=== PATIENT | female | born 1940 | race Caucasian/White ===

== ENCOUNTER 2018-09-19 12:09 | Emergency (ER) | payer OTHER ==
--- OUTSIDE RECORDS SUMMARY | 2018-09-19 12:27 | XMS REPORT ---
:1940 [facility] Address [address] [place] [address] Care Team Providers Name Role Phone Unavailable Unavailable Unavailable Problems This patient has no known problems. Allergies, Adverse Reactions, Alerts This patient has no known allergies or adverse reactions. Medications This patient has no known medications.
--- NOTE | 2018-09-19 12:58 | RAD REPORT ---
EXAM DESCRIPTION: RAD - Chest Single View - 09/19/2018 12:53 pm CLINICAL HISTORY: Chest pain;SOB Chest pain. COMPARISON: Chest Single View dated 03/22/2017; CHEST PA AND LAT 2 VIEW dated 10/27/2012; CHEST PA AND LAT 2 VIEW dated 08/26/2010; CHEST SINGLE VIEW dated 04/21/2009 FINDINGS: Portable technique limits examination quality. Mild linear subsegmental atelectasis is present both lung bases. The lungs are otherwise clear. The h eart is mildly enlarged in size. No displaced fractures. IMPRESSION: No acute intrathoracic process suspected.
[2018-09-19 13:15] LABS: Absolute Lymphocytes (CBC) 1.7 K/uL (0.7-4.9); Basophils % 1.2 % (0-1.3); Eosinophils % 2.9 % (0-4.4); Hematocrit 37.2 % (36.0-45.0); Lymphocytes % 19.6 % (15.3-44.8); MPV 9.2 fL (7.6-11.3); Monocytes % 9.4 % (3.3-12.3); RBC Red Blood Cell Count 4.32 M/uL (3.86-4.86)
[2018-09-19 13:18] LABS: Albumin 2.8 g/dL (3.4-5.0); Bilirubin Direct 0.1 mg/dL (0-0.2); Bilirubin Total 0.5 mg/dL (0.2-1.0); Magnesium 2.3 mg/dL (1.8-2.4); Protein, Total 7.9 g/dL (6.4-8.2); Protime INR 1.04; Troponin (Emerg Dept Use Only) 0.04 ng/mL (0.0-0.045)
--- NOTE | 2018-09-19 15:19 | ER ---
Nurse's Notes 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 Transition of care: patient was not received from another setting of care. Onset of symptoms was September 19, 2018. Risk Assessment: Do you want to hurt yourself or someone else? Patient reports no desire to harm self or others. Initial Sepsis Screen: Does the patient meet any 2 criteria? No. Patient's initial sepsis screen is negative. Does the patient have a suspected source of infection? No. Patient's initial sepsis screen is negative. Care prior to arrival: None. 12:13 Method Of Arrival: EMS: [facility] 12:13 Acuity: TJ 3 hj Triage Assessment: 12:16 General: Appears in no apparent distress. uncomfortable, Behavior is calm, cooperative, hj appropriate for age. Pain: Complains of pain in chest Pain does not radiate. Pain currently is 3 out of 10 on a pain scale. Cardiovascular: Reports chest pain. Historical: - Allergies: 12:17 Celebrex; hj - PMHx: 12:17 Hypertension; Thyroid problem; hj - PSHx: 12:17 Carpal Tunnel Repair; hj - Immunization history:: Adult Immunizations up to date. - Ebola Screening: : Patient negative for fever greater than or equal to 101.5 degrees Fahrenheit, and additional compatible Ebola Virus Disease symptoms Patient denies exposure to infectious person Patient denies travel to an Ebola-affected area in the 21 days before illness onset. - Social history:: Smoking status: Patient/guardian denies using tobacco, Patient/guardian denies using alcohol. Screenin:15 Abuse screen: Denies threats or abuse. Denies injuries from another. Nutritional hj screening: No deficits noted. Tuberculosis screening: No symptoms or risk factors identified. Fall Risk None identified. Assessment: 12:17 Pain: Pain began 1 hour ago. hj 12:17 General: Appears in no apparent distress. uncomfortable, obese, Behavior is calm, hj cooperative, appropriate for age. Pain: Complains of pain in chest Pain does not radiate. Pain currently is 3 out of 10 on a pain scale. Neuro: Level of Consciousness is awake, alert, obeys commands, Oriented to person, place, time, situation, Appropriate for age. Cardiovascular: Capillary refill < 3 seconds Patient's skin is warm and dry. Respiratory: Airway is patent Respiratory effort is even, unlabored, Respiratory pattern is regular, symmetrical. GI: No signs and/or symptoms were reported involving the gastrointestinal system. : No signs and/or symptoms were reported regarding the genitourinary system. EENT: No signs and/or symptoms were reported regarding the EENT system. Derm: No signs and/or symptoms reported regarding the dermatologic system. Musculoskeletal: No signs and/or symptoms reported regarding the musculoskeletal system. 12:58 Reassessment: Patient and/or family updated on plan of care and expected duration. Pain hj level reassessed. Patient is alert, oriented x 3, equal unlabored respirations, skin warm/dry/pink. awaiting results and POC:. 13:39 Reassessment: Patient and/or family updated on plan of care and expected duration. Pain hj level reassessed. Patient is alert, oriented x 3, equal unlabored respirations, skin warm/dry/pink. bottle label inspector in room for blood culture;. 14:54 Reassessment: Patient and/or family updated on plan of care and expected duration. Pain hj level reassessed. Patient is alert, oriented x 3, equal unlabored respirations, skin warm/dry/pink. awaiting for POC and 2nd set of trop'. Vital Signs: 12:14 BP 132 / 57; Pulse 73; Resp 22; Temp 98.1(O); Pulse Ox 97% on 2 lpm NC; Weight 116.12 hj kg; Height 5 ft. 6 in. (167.64 cm); Pain 3/10; 12:58 BP 155 / 67; Pulse 76; Resp 18; Pulse Ox 98% on 2 lpm NC; hj 13:38 BP 131 / 59; Pulse 75; Resp 18; Pulse Ox 100% on 2 lpm NC; hj 14:56 BP 131 / 59; Pulse 75; Resp 18; Pulse Ox 100% on 2 lpm NC; hj 12:14 Body Mass Index 41.32 (116.12 kg, 167.64 cm) hj ED Course: 12:12 Patient arrived in ED. hj 12:14 Triage completed. hj 12:15 Arm band placed on right wrist. hj 12:17 Patient has correct armband on for positive identification. Placed in gown. Bed in low hj position. Call light in reach. Side rails up X 1. phototypesetting equipment monitor on. Pulse ox on. NIBP on. 12:17 Oxygen administration via nasal cannula \T\ 2L/min. hj 12:21 Eliseo Pimentel, LOY is Primary Nurse. hj 12:25 Inserted saline lock: 22 gauge in right upper arm, using aseptic technique. Blood dh3 collected. 12:37 Cyril Marques MD is Attending Physician. kdr 12:48 EKG done, by textile science technician. reviewed by Cyril Marques MD. at1 12:50 Initial lab(s) drawn, by me, sent to lab. dh3 12:54 XRAY Chest (1 view) In Process Unspecified. EDMS 14:37 Repeat lab(s) drawn. by me, sent to lab. dh3 15:29 No provider procedures requiring assistance completed. IV discontinued, intact, hj bleeding controlled, No redness/swelling at site. Pressure dressing applied. Administered Medications: No medications were administered Outcome: 15:19 Discharge ordered by . kdr 15:30 Discharged to home ambulatory, with family. hj 15:30 Condition: stable 15:30 Discharge instructions given to patient, Instructed on discharge instructions, follow up and referral plans. Demonstrated understanding of instructions, follow-up care. 15:30 Patient left the ED. hj Signatures: Dispatcher [employer] EDMS Cyril Marques MD MD kdr Tova Robertson, spin table operator EKG Tat1 Eliseo Pimentel, LOY RN Romy Albarran 3 Corrections: (The following items were deleted from the chart) 12:15 12:14 BP 123 / 108; Pulse 73bpm; Resp 22bpm; Pulse Ox 97% 2 lpm Nasal Cannula; Temp hj 98.1F Oral; 116.12 kg; Height 5 ft. 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
--- NOTE | 2018-09-19 15:20 | EDPHYS ---
Physician Documentation [facility] Name: Rehana Yusuf Age: 78 yrs Sex: Female : 1940 Arrival Date: 09/19/2018 Time: 12:12 Bed 15 Private MD: ED Physician Cyril Marques HPI: 09/19 15:20 This 78 yrs old Female presents to ER via EMS with complaints of Chest Pain, kdr Shortness Of Breath. 15:20 This 78 yrs old Female presents to ER via EMS with complaints of Chest Pain. kdr 15:20 The patient or guardian reports chest pain that is located primarily in the substernal kdr area, anterior chest wall. Onset: suddenly, just prior to arrival, this morning. The pain does not radiate. Associated signs and symptoms: Pertinent positives: None. lower extremity swelling, Pertinent negatives: diaphoresis, dizziness, headache, nausea, near syncope, palpitations, shortness of breath, syncope. The chest pain is described as aching, a pressure. Duration: The patient or guardian reports a single episode, that is still ongoing, but improving. Modifying factors: The symptoms are alleviated by nothing. the symptoms are aggravated by nothing. Severity of pain: At its worst the pain was mild moderate a 6 / 10 in the emergency department the pain has improved is a 2 / 10. The patient has not experienced similar symptoms in the past. The patient has not recently seen a physician. Historical: - Allergies: 12:17 Celebrex; hj - PMHx: 12:17 Hypertension; Thyroid problem; hj - PSHx: 12:17 Carpal Tunnel Repair; hj - Immunization history:: Adult Immunizations up to date. - Ebola Screening: : Patient negative for fever greater than or equal to 101.5 degrees Fahrenheit, and additional compatible Ebola Virus Disease symptoms Patient denies exposure to infectious person Patient denies travel to an Ebola-affected area in the 21 days before illness onset. - Social history:: Smoking status: Patient/guardian denies using tobacco, Patient/guardian denies using alcohol. ROS: 15:20 Constitutional: Negative for fever, chills, and weight loss, Eyes: Negative for injury, kdr pain, redness, and discharge, ENT: Negative for injury, pain, and discharge, Neck: Negative for injury, pain, and swelling, Respiratory: Negative for shortness of breath, cough, wheezing, and pleuritic chest pain, Abdomen/GI: Negative for abdominal pain, nausea, vomiting, diarrhea, and constipation, Back: Negative for injury and pain, : Negative for injury, bleeding, discharge, and swelling, MS/Extremity: Negative for injury and deformity, Skin: Negative for injury, rash, and discoloration, Neuro: Negative for headache, weakness, numbness, tingling, and seizure activity. Psych: Negative for depression, anxiety, suicide ideation, homicidal ideation, and hallucinations, Allergy/Immunology: Negative for hives, rash, and allergies, Endocrine: Negative for neck swelling, polydipsia, polyuria, polyphagia, and marked weight changes, Hematologic/Lymphatic: Negative for swollen nodes, abnormal bleeding, and unusual bruising. 15:20 Cardiovascular: Positive for chest pain, Negative for edema, orthopnea, palpitations, paroxysmal nocturnal dyspnea, acute changes. Exam: 13:39 Constitutional: This is a well developed, well nourished patient who is awake, alert, kdr and in no acute distress. Head/Face: Normocephalic, atraumatic. Eyes: Pupils equal round and reactive to light, extra-ocular motions intact. Lids and lashes normal. Conjunctiva and sclera are non-icteric and not injected. Cornea within normal limits. Periorbital areas with no swelling, redness, or edema. Neck: Trachea midline, no thyromegaly or masses palpated, and no cervical lymphadenopathy. Supple, full range of motion without nuchal rigidity, or vertebral point tenderness. No Meningismus. Chest/axilla: Normal chest wall appearance and motion. Nontender with no deformity. No lesions are appreciated. Cardiovascular: Regular rate and rhythm with a normal S1 and S2. No gallops, murmurs, or rubs. Normal PMI, no JVD. No pulse deficits. Respiratory: Lungs have equal breath sounds bilaterally, clear to auscultation and percussion. No rales, rhonchi or wheezes noted. No increased work of breathing, no retractions or nasal flaring. Abdomen/GI: Soft, non-tender, with normal bowel sounds. No distension or tympany. No guarding or rebound. No evidence of tenderness throughout. Back: No spinal tenderness. No costovertebral tenderness. Full range of motion. Skin: Warm, dry with normal turgor. Normal color with no rashes, no lesions, and no evidence of cellulitis. MS/ Extremity: Pulses equal, no cyanosis. Neurovascular intact. Full, normal range of motion. Neuro: Awake and alert, GCS 15, oriented to person, place, time, and situation. Cranial nerves II-XII grossly intact. Motor strength 5/5 in all extremities. Sensory grossly intact. Cerebellar exam normal. Normal gait. Psych: Awake, alert, with orientation to person, place and time. Behavior, mood, and affect are within normal limits. 13:39 Musculoskeletal/extremity: ROM: limited active range of motion, in the right leg and kdr left leg, limited passive range of motion, The patient has significant lymphedema and erythema - which daughter states may be worsening but the patient feels that it is unchanged.. Vital Signs: 12:14 BP 132 / 57; Pulse 73; Resp 22; Temp 98.1(O); Pulse Ox 97% on 2 lpm NC; Weight 116.12 hj kg; Height 5 ft. 6 in. (167.64 cm); Pain 3/10; 12:58 BP 155 / 67; Pulse 76; Resp 18; Pulse Ox 98% on 2 lpm NC; hj 13:38 BP 131 / 59; Pulse 75; Resp 18; Pulse Ox 100% on 2 lpm NC; hj 14:56 BP 131 / 59; Pulse 75; Resp 18; Pulse Ox 100% on 2 lpm NC; hj 12:14 Body Mass Index 41.32 (116.12 kg, 167.64 cm) MDM: 13:39 HEART Score: History: Slightly Suspicious (0), ECG: Normal (0), Age: > or = 65 years kdr (2), Risk Factors: 1 or 2 risk factors (1), [Hypertension] Troponin: < or = 1 x Normal Limit (0), Total Score = 3. Data reviewed: vital signs, nurses notes, lab test result(s), EKG, radiologic studies. 15:19 Patient medically screened. kdr 15:22 Special discussion: Based on the patient's history, exam, and Dx evaluation, there is kdr no indication for emergent intervention or inpatient Tx. It is understood by the patient/guardian that if the Sx's persist or worsen they need to return immediately for re-evaluation. I discussed with the patient/guardian in detail that at this point there is no indication for admission to the hospital. It is understood, however, that if the symptoms persist or worsen the patient needs to return immediately for re-evaluation. 09/19 12:38 Order name: Basic Metabolic Panel; Complete Time: 13:22 kdr 09/19 12:38 Order name: CBC with Diff; Complete Time: 13:39 kdr 09/19 12:38 Order name: LFT's; Complete Time: 13:22 kdr 09/19 12:38 Order name: Magnesium; Complete Time: 13:22 kdr 09/19 12:38 Order name: NT PRO-BNP; Complete Time: 13:22 kdr 09/19 12:38 Order name: PT-INR; Complete Time: 13:39 kdr 09/19 12:38 Order name: Troponin (emerg Dept Use Only); Complete Time: 13:22 kdr 09/19 12:38 Order name: XRAY Chest (1 view); Complete Time: 13:00 kdr 09/19 12:38 Order name: EKG; Complete Time: 12:39 kdr 09/19 12:38 Order name: Cardiac monitoring; Complete Time: 12:44 kdr 09/19 12:38 Order name: EKG - Nurse/Tech; Complete Time: 12:44 kdr 09/19 13:18 Order name: Blood Culture Adult (2) kdr 09/19 13:22 Order name: Troponin (emerg Dept Use Only): Draw two hours after initial draw; Complete kdr Time: 15:11 09/19 14:33 Order name: Troponin I; Complete Time: 15:11 hj 09/19 12:38 Order name: IV Saline Lock; Complete Time: 12:44 kdr 09/19 12:38 Order name: Labs collected and sent; Complete Time: 12:44 kdr 09/19 12:38 Order name: O2 Per Protocol; Complete Time: 12:44 kdr 09/19 12:38 Order name: O2 Sat Monitoring; Complete Time: 12:44 kdr Administered Medications: No medications were administered Disposition: 09/19/18 15:19 Discharged to Home. Impression: Chest pain, unspecified, Other chest pain. - Condition is Stable. - Discharge Instructions: Nonspecific Chest Pain, [id number]. - Medication Reconciliation Form, Thank You Letter form. - Follow up: Private Physician; When: 2 - 3 days; Reason: If symptoms return, Further diagnostic work-up, Recheck today's complaints, Continuance of care, Re-evaluation by your physician. - Problem is new. - Symptoms have improved. Signatures: Dispatcher [employer] EDMS Prosper Vieyra MD MD cha Rittger, Kevin, MD MD kdr Joaquin, Henry, RN RN hj Corrections: (The following items were deleted from the chart) 15:30 15:19 09/19/2018 15:19 Discharged to Home. Impression: Chest pain, unspecified; Other hj chest pain. Condition is Stable. Forms are Medication Reconciliation Form, Thank You Letter, Antibiotic Education, Prescription Opioid Use. Follow up: Private Physician; When: 2 - 3 days; Reason: If symptoms return, Further diagnostic work-up, Recheck today's complaints, Continuance of care, Re-evaluation by your physician. Problem is new. Symptoms have improved. kdr
--- NOTE | 2018-09-19 15:42 | EKG ---
Test Date: 2018-09-19 Test Time: 12:18:04 Inspector Assembly: MELANIA MEASUREMENT RESULTS: Intervals: Rate: 75 NM: 160 QRSD: 88 QT: 434 QTc: 484 [place]: P: 65 NM: 160 QRS: 39 T: 63 INTERPRETIVE STATEMENTS: Normal sinus rhythm Normal ECG Compared to ECG 03/22/2017 11:31:20 No significant changes Electronically Signed On 09-19-18 15:41:22 CDT by Sigifredo Shaikh
== END 2018-09-19 15:30 | disposition home or self-care (01) ==
LOC: ER 12:09
DX: R07.89 Other chest pain (principal); I10 Essential (primary) hypertension; Z88.8 Allergy status to other drugs, medicaments and biological substances
CPT/HCPCS: 36415; 71045; 80048; 80076; 83735; 83880; 84484; 85025; 85610; 87040; 93005; 99285

== ENCOUNTER 2018-12-01 16:54 | Inpatient (IN) | payer OTHER ==
--- NOTE | 2018-12-01 18:40 | RAD REPORT ---
EXAM DESCRIPTION: RAD - Chest Single View - 12/01/2018 6:32 pm CLINICAL HISTORY: SOB Chest pain. COMPARISON: Chest Single View dated 09/19/2018; Chest Single View dated 03/22/2017; CHEST PA AND LAT 2 VIEW dated 10/27/2012; CHEST PA AND LAT 2 VIEW dated 08/26/2010 FINDINGS: Portable technique limits examination quality. Mild interstitial pulmonary edema. The heart is moderately enlarged in size. No displaced fractures. IMPRESSION: Mild CHF.
[2018-12-01 20:28] LABS: Absolute Lymphocytes (CBC) 1.5 K/uL (0.7-4.9); Hematocrit 33.8 % (36.0-45.0); Lymphocytes % 15.2 % (15.3-44.8); MPV 8.3 fL (7.6-11.3); RBC Red Blood Cell Count 3.92 M/uL (3.86-4.86)
[2018-12-01 20:36] LABS: Protime INR 1.11
[2018-12-01] MEDS ORDERED: FUROSEMIDE 20 MG/ 2ML VIAL ONE (20:42)
[2018-12-01 21:02] LABS: Albumin 2.8 g/dL (3.4-5.0); Bilirubin Direct 0.1 mg/dL (0-0.2); Bilirubin Total 0.4 mg/dL (0.2-1.0); CKMB Creatine Kinase MB 1.6 ng/mL (0.3-3.6); Protein, Total 7.9 g/dL (6.4-8.2); Troponin (Emerg Dept Use Only) 0.06 ng/mL (0.0-0.045)
[2018-12-01 21:43] LABS: Urine Bacteria NONE SEEN /HPF (<20); Urine Culture Reflex Order NOT NEEDED; Urine RBC <5 /HPF (NONE SEEN)
--- NOTE | 2018-12-01 22:04 | ER ---
Nurse's Notes [facility] Name: Rehana Yusuf Age: 78 yrs Sex: Female : 1940 Arrival Date: 12/01/2018 Time: 16:55 Bed 13 Private MD: Faheem Faria E Diagnosis: Unspecified systolic (congestive) heart failure;Venous insufficiency (chronic) (peripheral) Presentation: 12/01 17:12 Presenting complaint: Patient states: I have had shortness of breath and leg swelling sg that started several days ago, Linda been out of my home o2 for about a week, taking my medications but the swelling and weeping in my legs is getting much worth and I feel like I cant breath. Transition of care: patient was not received from another setting of care. Onset of symptoms was December 01, 2018. Risk Assessment: Do you want to hurt yourself or someone else? Patient reports no desire to harm self or others. Initial Sepsis Screen: Does the patient meet any 2 criteria? RR > 20 per min. HR > 90 bpm. Yes Does the patient have a suspected source of infection? No. Patient's initial sepsis screen is negative. Care prior to arrival: None. 17:12 Method Of Arrival: Ambulatory sg 17:12 Acuity: TJ 2 sg Triage Assessment: 17:10 Respiratory: the patient has mild shortness of breath. rb1 Historical: - Allergies: 17:01 Celebrex; sg - PMHx: 17:01 Hypertension; Thyroid problem; sg - PSHx: 17:01 Carpal Tunnel Repair; sg - Immunization history:: Adult Immunizations up to date. - Social history:: Smoking status: Patient/guardian denies using tobacco. - Ebola Screening: : Patient negative for fever greater than or equal to 101.5 degrees Fahrenheit, and additional compatible Ebola Virus Disease symptoms Patient denies exposure to infectious person Patient denies travel to an Ebola-affected area in the 21 days before illness onset No symptoms or risks identified at this time. Screenin:10 Abuse screen: Denies threats or abuse. Nutritional screening: No deficits noted. rb1 Tuberculosis screening: No symptoms or risk factors identified. Fall Risk No fall in past 12 months (0 pts). Secondary diagnosis (15 points) impaired mobility, No IV (0 pts). Ambulatory Aid- Crutches/Cane/Walker (15 pts). Gait- Impaired (20 pts.). Mental Status- Oriented to own ability (0 pts). Total Mckeon Fall Scale indicates High Risk Score (45 or more points). Fall prevention measures have been instituted. Side Rails Up X 2 Placed Close to Nursing Station 1:1 Attendant Assigned Frequent Obs/Assessments Occuring Family Present and informed to notify staff if the need to leave the bedside As available patient and family educated on Fall Prevention Program and Strategies. Assessment: 17:10 General: Appears in no apparent distress. comfortable, Behavior is calm, cooperative, rb1 Denies fever. Pain: Denies pain. Complains of pain in bilateral legs Pain currently is 0 out of 10 on a pain scale. at worst was 10 out of 10 on a pain scale. Neuro: Level of Consciousness is awake, alert, obeys commands, Oriented to person, place, time, situation. Cardiovascular: Capillary refill < 3 seconds is brisk in bilateral fingers. Respiratory: Reports shortness of breath Airway is patent Respiratory effort is even, unlabored, Respiratory pattern is regular, symmetrical, Denies cough. GI: No signs and/or symptoms were reported involving the gastrointestinal system. : No signs and/or symptoms were reported regarding the genitourinary system. Derm: Skin is pink, warm \T\ dry. Musculoskeletal: Swelling present in right leg and left leg bilateral legs are red, swollen, and weeping. 18:10 Reassessment: Patient appears in no apparent distress at this time. No changes from rb1 previously documented assessment. 19:10 Reassessment: Patient appears in no apparent distress at this time. Patient and/or jb4 family updated on plan of care and expected duration. Pain level reassessed. Patient is alert, oriented x 3, equal unlabored respirations, skin warm/dry/pink. Cardiovascular: Rhythm is sinus rhythm. 20:36 Reassessment: Patient appears in no apparent distress at this time. Patient and/or jb4 family updated on plan of care and expected duration. Pain level reassessed. Patient is alert, oriented x 3, equal unlabored respirations, skin warm/dry/pink. 20:36 Respiratory: Breath sounds are clear in right upper lobe, left upper lobe, right middle jb4 lobe and left lower lobe Breath sounds are diminished bilaterally. Breath sounds with wheezes in left posterior upper lobe, right posterior upper lobe, left posterior lower lobe, right posterior middle lobe and right posterior lower lobe. 21:30 Reassessment: Patient appears in no apparent distress at this time. Patient and/or jb4 family updated on plan of care and expected duration. Pain level reassessed. Patient is alert, oriented x 3, equal unlabored respirations, skin warm/dry/pink. 21:51 Reassessment: Pt refused marks. jb4 22:30 Reassessment: Patient appears in no apparent distress at this time. Patient and/or jb4 family updated on plan of care and expected duration. Pain level reassessed. Patient is alert, oriented x 3, equal unlabored respirations, skin warm/dry/pink. 12/02 00:09 Reassessment: Patient appears in no apparent distress at this time. Patient and/or jb4 family updated on plan of care and expected duration. Pain level reassessed. Patient is alert, oriented x 3, equal unlabored respirations, skin warm/dry/pink. Pt reports being able to breath better. Report called to LOY Cruz Patient states feeling better. Vital Signs: 12/01 17:16 BP 114 / 76; Pulse 98; Resp 38 S; Temp 97.2; Pulse Ox 78% on R/A; Pain 3/10; sg 17:17 Pulse Ox 99% on 4 lpm NC; sg 18:15 BP 104 / 77; Pulse 84; Resp 24; Pulse Ox 100% on R/A; Pain 0/10; rb1 20:30 BP 146 / 58; Pulse 103; Resp 16; Pulse Ox 100% on 2.5 lpm NC; jb4 21:30 BP 136 / 58; Pulse 9; Resp 18; Pulse Ox 99% on 2.5 lpm NC; jb4 22:50 BP 121 / 78; Pulse 83; Resp 18; Pulse Ox 100% on 2.5 lpm NC; jb4 23:45 BP 134 / 69; Pulse 87; Resp 20; Temp 98.1(O); Pulse Ox 100% on 2 lpm NC; jb4 17:17 pt report she has been out of home o2 for a week sg ED Course: 16:55 Patient arrived in ED. as 16:56 Faheem Faria MD is Private Physician. as 17:01 Arm band placed on. sg 17:08 Margo Yates FNP-C is PHCP. snw 17:08 Stanislaw King MD is Attending Physician. snw 17:10 Patient has correct armband on for positive identification. Bed in low position. Call rb1 light in reach. Side rails up X 1. Pulse ox on. NIBP on. Warm blanket given. 17:15 Briana Lopez, RN is Primary Nurse. rb1 17:19 Triage completed. sg 18:32 First set of blood cultures drawn by me. Missed attempt(s): 20 gauge in right dh3 antecubital area. Bleeding controlled, band aid applied, catheter tip intact. 18:39 Chest Single View XRAY In Process Unspecified. EDMS 18:45 Missed attempt(s): 22 gauge in right upper arm. Bleeding controlled, band aid applied, dh3 catheter tip intact. 19:00 Report given to LOY Longoria. rb1 19:10 EKG done, by ED staff, reviewed by Margo COUGHLIN. dh3 19:55 Initial lab(s) drawn, by me, sent to lab. Second set of blood cultures drawn. Inserted fc 18 gauge 10 cm midline to right upper arm brachial vein on first attempt. Line with good blood return and flushes well. 22:02 Felipe Shaw MD is Hospitalizing Provider. snw 12/02 00:09 No provider procedures requiring assistance completed. Patient admitted, IV remains in jb4 place. Administered Medications: 12/01 20:47 Drug: Lasix 20 mg Route: IVP; Site: right upper arm; jb4 12/02 00:11 Follow up: Response: No adverse reaction jb4 Point of Care Testing: Blood Glucose: 12/01 18:51 Blood Glucose: 88 mg/dL; rb1 Ranges: Outcome: 22:04 Decision to Hospitalize by Provider. snw 12/02 00:09 Admitted to Med/surg accompanied by nurse, via wheelchair, with oxygen, with chart, jb4 Report called to LOY Cruz Condition: stable Discharge instructions given to patient, family, Instructed on the need for admit, Demonstrated understanding of instructions. 00:56 Patient left the ED. jb4 Signatures: Dispatcher [employer] EDMS Jm Montanez RN RN sg Therrien, Shelly, FNP-C FNP-Holly Wright RN RN fc Martinez, Amelia as Briana Lopez RN RN rb1 Pj Dillard RN RN jb4 Romy Albarran [facility] Corrections: (The following items were deleted from the chart) 12/01 23:11 20:36 Reassessment: Patient appears in no apparent distress at this time. Patient jb4 and/or family updated on plan of care and expected duration. Pain level reassessed. Patient is alert, oriented x 3, equal unlabored respirations, skin warm/dry/pink. jb 23:16 20:30 BP 146 / 58; Pulse 103bpm; Resp 16bpm; Pulse Ox 100% RA; jb4 [facility] 23:58 20:30 BP 146 / 58; Pulse 103bpm; Resp 16bpm; Pulse Ox 100% 4 lpm Nasal Cannula; jb4 [facility] :58 21:30 BP 136 / 58; Pulse 9bpm; Resp 18bpm; Pulse Ox 99% 4 lpm Nasal Cannula; jb4 [facility] :58 22:50 BP 121 / 78; Pulse 83bpm; Resp 18bpm; Pulse Ox 100% 4 lpm Nasal Cannula; jb4 [facility] 12/02 00:09 12/01 23:45 BP 134 / 69; Pulse 87bpm; Resp 20bpm; Pulse Ox 100% 2 lpm Nasal Cannula; [id number]
--- NOTE | 2018-12-01 22:05 | EDPHYS ---
Physician Documentation [facility] Name: Rehana Yusuf Age: 78 yrs Sex: Female : 1940 Arrival Date: 12/01/2018 Time: 16:55 Bed 13 Private MD: Faheem Faria E ED Physician Stanislaw King HPI: 12/01 20:21 This 78 yrs old Female presents to ER via Ambulatory with complaints of Leg snw Swelling, Shortness Of Breath. 20:21 The patient has shortness of breath at rest. Onset: The symptoms/episode began/occurred snw gradually, April 21. Duration: The symptoms are continuous. Associated signs and symptoms: The patient has no apparent associated signs or symptoms. Severity of symptoms: At their worst the symptoms were moderate severe in the emergency department the symptoms are unchanged. as noted. sees Dr. Faria. Historical: - Allergies: 17:01 Celebrex; sg - PMHx: 17:01 Hypertension; Thyroid problem; sg - PSHx: 17:01 Carpal Tunnel Repair; sg - Immunization history:: Adult Immunizations up to date. - Social history:: Smoking status: Patient/guardian denies using tobacco. - Ebola Screening: : Patient negative for fever greater than or equal to 101.5 degrees Fahrenheit, and additional compatible Ebola Virus Disease symptoms Patient denies exposure to infectious person Patient denies travel to an Ebola-affected area in the 21 days before illness onset No symptoms or risks identified at this time. ROS: 19:03 Constitutional: Negative for fever, chills, and weight loss, Eyes: Negative for injury, snw pain, redness, and discharge, ENT: Negative for injury, pain, and discharge, Neck: Negative for injury, pain, and swelling, Cardiovascular: Negative for chest pain, palpitations, and edema, Respiratory: Negative for shortness of breath, cough, wheezing, and pleuritic chest pain, Abdomen/GI: Negative for abdominal pain, nausea, vomiting, diarrhea, and constipation, Back: Negative for injury and pain, : Negative for injury, bleeding, discharge, and swelling, Skin: Negative for injury, rash, and discoloration, Neuro: Negative for headache, weakness, numbness, tingling, and seizure. 19:03 MS/extremity: Positive for pain, swelling, warmth, of the bilaterally lower extremities. Exam: 19:00 Head/Face: Normocephalic, atraumatic. Eyes: Pupils equal round and reactive to light, snw extra-ocular motions intact. Lids and lashes normal. Conjunctiva and sclera are non-icteric and not injected. Cornea within normal limits. Periorbital areas with no swelling, redness, or edema. ENT: Nares patent. No nasal discharge, no septal abnormalities noted. Tympanic membranes are normal and external auditory canals are clear. Oropharynx with no redness, swelling, or masses, exudates, or evidence of obstruction, uvula midline. Mucous membranes moist. Neck: Trachea midline, no thyromegaly or masses palpated, and no cervical lymphadenopathy. Supple, full range of motion without nuchal rigidity, or vertebral point tenderness. No Meningismus. Chest/axilla: Normal chest wall appearance and motion. Nontender with no deformity. No lesions are appreciated. Cardiovascular: Regular rate and rhythm with a normal S1 and S2. No gallops, murmurs, or rubs. Normal PMI, no JVD. No pulse deficits. 19:00 Abdomen/GI: Soft, non-tender, with normal bowel sounds. No distension or tympany. No guarding or rebound. No evidence of tenderness throughout. Back: No spinal tenderness. No costovertebral tenderness. Full range of motion. Neuro: Awake and alert, GCS 15, oriented to person, place, time, and situation. Cranial nerves II-XII grossly intact. Motor strength 5/5 in all extremities. Sensory grossly intact. Cerebellar exam normal. Normal gait. Psych: Awake, alert, with orientation to person, place and time. Behavior, mood, and affect are within normal limits. 19:00 Constitutional: The patient appears alert, awake, obese, uncomfortable. 19:00 Respiratory: the patient does not display signs of respiratory distress, Respirations: prolonged exhalation, shallow respirations, tachypnea, Breath sounds: are clear throughout. 19:00 Skin: Appearance: normal except for affected area, Moisture: dry, lower extremities bilaterally with scaled, edematous, weeping, lesions. Vital Signs: 17:16 BP 114 / 76; Pulse 98; Resp 38 S; Temp 97.2; Pulse Ox 78% on R/A; Pain 3/10; sg 17:17 Pulse Ox 99% on 4 lpm NC; sg 18:15 BP 104 / 77; Pulse 84; Resp 24; Pulse Ox 100% on R/A; Pain 0/10; rb1 20:30 BP 146 / 58; Pulse 103; Resp 16; Pulse Ox 100% on 2.5 lpm NC; jb4 21:30 BP 136 / 58; Pulse 9; Resp 18; Pulse Ox 99% on 2.5 lpm NC; jb4 22:50 BP 121 / 78; Pulse 83; Resp 18; Pulse Ox 100% on 2.5 lpm NC; jb4 23:45 BP 134 / 69; Pulse 87; Resp 20; Temp 98.1(O); Pulse Ox 100% on 2 lpm NC; jb4 17:17 pt report she has been out of home o2 for a week sg MDM: 18:05 Patient medically screened. snw 22:04 Data reviewed: vital signs, nurses notes. Data interpreted: Pulse oximetry: on room air snw is 78 %. Interpretation: hypoxia. Plan: O2 by NC applied. 22:06 Physician consultation: Felipe Shaw MD was called at 22:06, regarding admission, to critical access hospital the telemetry unit. 12/01 18:05 Order name: Sed Rate; Complete Time: 21:08 [facility] hospital 12/01 18:05 Order name: Basic Metabolic Panel; Complete Time: 21:04 w 12/01 18:05 Order name: Blood Culture Adult (2) [facility] 12/01 18:05 Order name: CBC with Diff; Complete Time: 21:08 [facility] 12/01 18:05 Order name: Ckmb; Complete Time: 21:04 [facility] 12/01 18:05 Order name: CPK; Complete Time: 21:04 w 12/01 18:05 Order name: Lactate; Complete Time: 21:05 w 12/01 18:05 Order name: LFT's; Complete Time: 21:04 [facility] 12/01 18:05 Order name: Lipase; Complete Time: 21:05 w 12/01 18:05 Order name: Procalcitonin; Complete Time: 21:16 w 12/01 18:05 Order name: Protime (+inr); Complete Time: 20:57 [facility] hospital 12/01 18:05 Order name: Ptt, Activated; Complete Time: 20:57 [facility] 12/01 18:05 Order name: Troponin (emerg Dept Use Only); Complete Time: 21:04 snw 12/01 18:05 Order name: Urine Microscopic Only; Complete Time: 21:48 snw 12/01 18:05 Order name: Chest Single View XRAY; Complete Time: 19:14 snw 12/01 21:45 Order name: Urine Dipstick--Ancillary (enter results); Complete Time: 22:19 ar5 12/01 21:52 Order name: BNP; Complete Time: 22:19 jb4 12/01 23:17 Order name: CONS Physician Consult [facility] 12/01 23:17 Order name: Urinalysis [facility] 12/01 23:17 Order name: CBC with Automated Diff [facility] 12/01 23:17 Order name: CBC with Automated Diff [facility] 12/01 23:17 Order name: Comprehensive Metabolic Panel [facility] 12/01 23:17 Order name: Comprehensive Metabolic Panel [facility] 12/01 23:17 Order name: Magnesium [facility] 12/01 23:17 Order name: Magnesium [facility] 12/01 23:17 Order name: Phosphorus [facility] 12/01 23:18 Order name: Phosphorus [facility] 12/01 23:18 Order name: NT PRO-BNP [facility] 12/01 23:18 Order name: NT PRO-BNP [facility] 12/01 18:05 Order name: Accucheck; Complete Time: 18:52 w 12/01 18:05 Order name: Cardiac monitoring; Complete Time: 20:32 [facility] 12/01 18:05 Order name: EKG - Nurse/Tech; Complete Time: 19:11 [facility] 12/01 18:05 Order name: IV Saline Lock - Large Bore; Complete Time: 20:32 w 12/01 18:05 Order name: Labs collected and sent; Complete Time: 20:32 w 12/01 18:05 Order name: O2 Per Protocol; Complete Time: 18:52 w 12/01 18:05 Order name: O2 Sat Monitoring; Complete Time: 18:52 w 12/01 18:05 Order name: Urine Dipstick-Ancillary (obtain specimen); Complete Time: 21:52 w 12/01 21:08 Order name: [place]; Complete Time: 21:51 w 12/01 23:17 Order name: Heart Healthy EDMS Administered Medications: 20:47 Drug: Lasix 20 mg Route: IVP; Site: right upper arm; jb4 12/02 00:11 Follow up: Response: No adverse reaction jb4 Point of Care Testing: Blood Glucose: 12/01 18:51 Blood Glucose: 88 mg/dL; rb1 Ranges: Critical Glucose Levels:Adult <50 mg/dl or >400 mg/dl <40 mg/dl or >180 mg/dl Disposition: 22:02 Critical Care: not applicable. snw Disposition: 12/01/18 22:04 Hospitalization ordered by Felipe Shaw for Observation. Preliminary diagnosis are Unspecified systolic (congestive) heart failure, Venous insufficiency (chronic) (peripheral). - Bed requested for Telemetry/MedSurg (observation). - Status is Observation. jb4 - Condition is Stable. - Problem is new. - Symptoms are unchanged. UTI on Admission? No Addendum: 12/06/2018 14:46 Co-signature as Attending Physician, Stanislaw King MD. g s Signatures: Dispatcher [employer] EDVA Dionna Short RN RN mw Gay, Steven, RN RN sg Margo Yates, [employer]PERATIONS SUPERVISOR-C [employer] SUPERVISOR-Csnw Pj Dillard RN RN [facility] Stanislaw King MD MD Corrections: (The following items were deleted from the chart) 12/01 23:41 22:04 Hospitalization Ordered by Felipe Shaw MD for Observation. Preliminary diagnosis is Unspecified systolic (congestive) heart failure; Venous insufficiency (chronic) (peripheral). Bed requested for Telemetry/MedSurg (observation). Status is Observation. Condition is Stable. Problem is new. Symptoms are unchanged. UTI on Admission? No. snw 12/02 00:56 12/01 23:41 12/01/2018 22:04 Hospitalization Ordered by Felipe Shaw MD for jb4 Observation. Preliminary diagnosis is Unspecified systolic (congestive) heart failure; Venous insufficiency (chronic) (peripheral). Bed requested for Telemetry/MedSurg (observation). Status is Observation. Condition is Stable. Problem is new. Symptoms are unchanged. UTI on Admission? No. mw
[2018-12-01 22:09] LABS: Urine Blood NEGATIVE (NEG); Urine Glucose NEGATIVE (NEG); Urine Protein NEGATIVE (NEG)
[2018-12-01] MEDS ORDERED: ONDANSETRON 4 MG/2 ML VIAL IV PRN (23:11)
[2018-12-01] MEDS ORDERED: ALPRAZOLAM 0.25 MG TABLET PO PRN (23:11)
[2018-12-01] MEDS: NA CHLORIDE 0.9% 1,000 ML IV SCH (23:45)
[2018-12-02] MEDS: NA CHLORIDE 0.9% 1,000 ML IV SCH (00:49)
[2018-12-02] MEDS: METHYLPREDNISOLONE 125 MG INJ IV SCH ×2 (00:50→06:47)
[2018-12-02 01:10] VITALS: BMI 42.7
[2018-12-02] MEDS: IPRATROPIUM BROM 0.5MG/2.5ML NEB SCH ×4 (02:00→20:00)
[2018-12-02] MEDS: ALBUTEROL 2.5 MG/3 ML NEB SOL NEB SCH ×4 (02:00→20:00)
[2018-12-02] MEDS ORDERED: INFLUENZA VACCINE (for 3y+) 0.5 ML DOSE IMVAC ONE (06:00)
[2018-12-02 06:04] LABS: Absolute Lymphocytes (CBC) 0.5 K/uL (0.7-4.9); Basophils % 0.5 % (0-1.3); Hematocrit 33.5 % (36.0-45.0); Lymphocytes % 5.1 % (15.3-44.8); MPV 8.5 fL (7.6-11.3); RBC Red Blood Cell Count 3.93 M/uL (3.86-4.86)
[2018-12-02 06:14] LABS: Albumin 2.8 g/dL (3.4-5.0); Bilirubin Total 0.5 mg/dL (0.2-1.0); Magnesium 1.9 mg/dL (1.8-2.4); Phosphorus 3.3 mg/dL (2.5-4.9)
[2018-12-02] MEDS ORDERED: FUROSEMIDE 20 MG/ 2ML VIAL IV ONE (07:39)
[2018-12-02] MEDS ORDERED: ALBUMIN HUMAN 25% 50 ML IV ONE ×2 (07:39→12:00)
[2018-12-02] MEDS ORDERED: PNEUMOCOCCAL VACCINE 0.5 ML IMVAC ONE (08:00)
--- NOTE | 2018-12-02 08:38 | EKG ---
Test Date: 2018-12-01 Test Time: 19:10:18 [employer]ing [employer] Member: ALEXY MEASUREMENT RESULTS: Intervals: Rate: 85 NM: 160 QRSD: 84 QT: 404 QTc: 480 [place]: P: 58 NM: 160 QRS: 34 T: 37 INTERPRETIVE STATEMENTS: Normal sinus rhythm Possible Anterior infarct, age undetermined Abnormal ECG Compared to ECG 09/19/2018 12:18:04 Myocardial infarct finding now present Electronically Signed On 12-02-18 08:37:52 CDT by Sigifredo Shaikh
[2018-12-02] MEDS: ENOXAPARIN 40 MG/0.4 ML SQ SCH (09:08)
[2018-12-02] MEDS: PIPER/TAZO/NS 3.375gm 3.375 GM/100 ML BAG IVPB SCH ×2 (09:09→18:10)
[2018-12-02] MEDS: PREGABALIN 75 MG CAP PO SCH ×2 (09:09→21:21)
[2018-12-02 10:52] LABS: Stomatocytes 2+
[2018-12-02 10:53] LABS: Blood Morphology Comment NOTED (NOT SEEN); Platelet Estimate ADEQ; Urine White Blood Cell Casts OK
[2018-12-02] MEDS ORDERED: ALBUMIN HUMAN 25% 100 ML IV ONE (11:46)
--- NOTE | 2018-12-02 12:28 | P.PN ---
Subjective Date of Service: 12/02/18 Subjective: No C/O voiced, Ambulating, Improving, Working w/ PT, Doing well Review of Systems 10-point ROS is otherwise unremarkable Physical Examination - Vital Signs Temperature: 98.0 F Blood Pressure: 164/77 Pulse: 96 Respirations: 20 Pulse Ox (%): 95 - Physical Exam General: Alert, In no apparent distress HEENT: Atraumatic, PERRLA, EOMI Neck: Supple, JVD not distended Respiratory: Normal air movement, Expiratory wheezes, Inspiratory wheezes Cardiovascular: Regular rate/rhythm, Normal S1 S2 Gastrointestinal: Normal bowel sounds, No tenderness Musculoskeletal: No tenderness Integumentary: No rashes Neurological: Normal speech, Normal tone, Normal affect Lymphatics: No axilla or inguinal lymphadenopathy - Studies Laboratory Data (last 24 hrs) 12/01/18 19:55: PT 13.1 H, INR 1.11, APTT 30.3 12/01/18 19:55: Sodium 138, Potassium 4.0, BUN 12, Creatinine 1.00, Glucose 94, Total Bilirubin 0.4, AST 13 L, ALT 14, Alkaline Phosphatase 74, Lipase 123 12/01/18 19:55: WBC 9.6, Hgb 10.5 L, Hct 33.8 L, Plt Count 396 Medications List Reviewed: Yes Assessment And Plan - Current Problems (Diagnosis) (1) COPD exacerbation Onset Date: 03/23/17 Current Visit: No Status: Acute Plan: COPD exacerbation -Duonebs, Steroids and Oxygen for now -Pulmonology consulted. Appreciated Reccs -Will monitor for next 24hrs (2) HTN (hypertension) Onset Date: 03/23/17 Current Visit: No Status: Chronic Qualifiers: Hypertension type: essential hypertension Qualified Code(s): I10 - Essential (primary) hypertension (3) Hypothyroid Onset Date: 03/23/17 Current Visit: No Status: Chronic Qualifiers: Hypothyroidism type: acquired Qualified Code(s): E03.9 - Hypothyroidism, unspecified - Plan Pending clinical improvement at this time Discharge Plan: Home Plan to discharge in: 48 Hours - Code Status/Comfort Care Code Status Assessed: Yes Critical Care: No
--- NOTE | 2018-12-02 21:08 | P.HP ---
Certification for Inpatient Patient admitted to: Inpatient With expected LOS: >2 Midnights Patient will require the following post-hospital care: None Practitioner: I am a practitioner with admitting privileges, knowledge of patient current condition, hospital course, and medical plan of care. Services: Services provided to patient in accordance with Admission requirements found in Title 42 Section 412.3 of the Code of Federal Regulations Patient History Date of Service: 12/01/18 Reason for admission: Shortness of breath and bilateral lower extremity edema/ erythema History of Present Illness: Patient is 78-year-old female came to the hospital with difficulty breathing. Patient has significant shortness of breath. Patient has a history of COPD exacerbation. Patient recently ran out of her home oxygen. She states the weeping in her leg got much worse so she decided to finally come into the hospital for further evaluation. Patient respiratory status has improved. Patient was given nebs and steroids. Clinically, she does feel somewhat better but her legs are still bothering her. She is having neuropathic pain. She also has significant erythema. These are being treated for the last 4 months. She has not seen much improvement even though she has seen a rolling machine operator automatic. She states that her rolling machine operator automatic and PCP are in disagreement for the etiology of her lower extremity edema. Allergies celecoxib [From Celebrex] Allergy (Severe, Verified 12/02/18 01:07) Anaphylaxis Home Medications: Amitriptyline [Elavil*] 25 mg PO BEDTIME 12/02/18 Fluticasone/Vilanterol [Breo Ellipta 200-25 Mcg INH] 1 puff IN DAILY 12/02/18 Furosemide [Lasix*] 40 mg PO DAILY 12/02/18 Gabapentin 600 mg PO DAILY 12/02/18 Levothyroxine Sodium 50 mcg PO DAILY 12/02/18 Metoprolol Succinate 25 mg PO BID 12/02/18 Simvastatin 40 mg PO BEDTIME 12/02/18 - Past Medical/Surgical History Has patient received pneumonia vaccine in the past: No Diabetic: No -: COPD -: HTN -: Asthma -: Hypothyroidism -: HTN -: Carpal Tunnel Repair - Family History Father Family History: Reviewed- Non-Contributory - Social History Smoking Status: Never smoker Alcohol use: Yes CD- Drugs: No Caffeine use: Yes Place of Residence: Home Review of Systems 10-point ROS is otherwise unremarkable Physical Examination - Vital Signs Temperature: 98.7 F Blood Pressure: 149/76 Pulse: 103 Respirations: 19 Pulse Ox (%): 93 - Physical Exam General: Alert, In no apparent distress, Oriented x3 HEENT: Atraumatic, PERRLA, Mucous membr. moist/pink, EOMI, Sclerae nonicteric Neck: Supple, 2+ carotid pulse no bruit, No LAD, Without JVD or thyroid abnormality Respiratory: Diminished, Expiratory wheezes Cardiovascular: Regular rate/rhythm, Normal S1 S2, No murmurs Gastrointestinal: Normal bowel sounds, Soft and benign, Non-distended, No tenderness Musculoskeletal: Swelling, Erythema, Tenderness Integumentary: Tenderness/swelling, Erythema, Warmth Neurological: Normal speech, Normal tone, Sensation intact, Cranial nerves 3-12 intact, Normal affect, Abnormal gait, Abnormal strength Lymphatics: No axilla or inguinal lymphadenopathy - Studies Laboratory Data (last 24 hrs) 12/01/18 19:55: Sodium 138, Potassium 4.0, BUN 12, Creatinine 1.00, Glucose 94, Total Bilirubin 0.4, AST 13 L, ALT 14, Alkaline Phosphatase 74, Lipase 123 Assessment & Plan - Problems (Diagnosis) (1) Hypoxemia Current Visit: Yes Status: Acute (2) COPD exacerbation Onset Date: 03/23/17 Current Visit: No Status: Acute (3) Bilateral lower extremity edema Current Visit: Yes Status: Acute (4) Bilateral lower leg cellulitis Current Visit: Yes Status: Acute (5) HTN (hypertension) Onset Date: 03/23/17 Current Visit: No Status: Chronic Qualifiers: Hypertension type: essential hypertension Qualified Code(s): I10 - Essential (primary) hypertension (6) Hypothyroid Onset Date: 03/23/17 Current Visit: No Status: Chronic Qualifiers: Hypothyroidism type: acquired Qualified Code(s): E03.9 - Hypothyroidism, unspecified - Plan Plan: 1. Continue with albuterol and Atrovent nebs 2. Continue with IV steroids 3. Pulmonary consultation 5. Room air O2 sats 6. Repeat chest x-ray in the morning 7. Wound healing care consultation 8. IV antibiotics 9. GI and DVT prophylaxis - Advance Directives Does patient have a Living Will: No Does patient have a Durable POA for Healthcare: No
[2018-12-02] MEDS: predniSONE 10 MG TAB PO SCH (21:22)
[2018-12-03] MEDS: IPRATROPIUM BROM 0.5MG/2.5ML NEB SCH ×4 (00:50→19:15)
[2018-12-03] MEDS: ALBUTEROL 2.5 MG/3 ML NEB SOL NEB SCH ×4 (00:50→19:15)
[2018-12-03] MEDS: PIPER/TAZO/NS 3.375gm 3.375 GM/100 ML BAG IVPB SCH ×3 (01:20→17:19)
[2018-12-03] MEDS: PREGABALIN 75 MG CAP PO SCH (09:00)
[2018-12-03] MEDS: predniSONE 10 MG TAB PO SCH ×2 (09:06→20:59)
[2018-12-03] MEDS: ENOXAPARIN 40 MG/0.4 ML SQ SCH (09:06)
[2018-12-03] MEDS: PNEUMOCOCCAL VACCINE 0.5 ML IMVAC ONE ×2 (10:00→17:20)
[2018-12-03] MEDS: INFLUENZA VACCINE (for 3y+) 0.5 ML DOSE IMVAC ONE ×2 (10:00→17:22)
--- NOTE | 2018-12-03 13:05 | P.PN ---
Subjective Date of Service: 12/03/18 Chief Complaint: Shortness of breath and bilateral lower extremity edema/ erythema Review of Systems 10-point ROS is otherwise unremarkable Physical Examination - Vital Signs Temperature: 97.4 F Blood Pressure: 143/72 Pulse: 81 Respirations: 19 Pulse Ox (%): 94 - Physical Exam General: Alert, In no apparent distress HEENT: Atraumatic, PERRLA, EOMI Neck: Supple, JVD not distended Respiratory: Clear to auscultation bilaterally, Normal air movement Cardiovascular: Regular rate/rhythm, Normal S1 S2 Gastrointestinal: Normal bowel sounds, No tenderness Musculoskeletal: Erythema, Tenderness, Warmth Integumentary: No rashes Neurological: Normal speech, Normal tone, Normal affect Lymphatics: No axilla or inguinal lymphadenopathy - Studies Medications List Reviewed: Yes Assessment And Plan - Current Problems (Diagnosis) (1) Bilateral lower leg cellulitis Current Visit: Yes Status: Acute Plan: BL LE Cellulites with Chronic Lymphedema -IV Zosyn at this time -Blood and wound culture pending at this time -will clean the wound with Betadine and Wrap the leg and elevate it -Will f.u with Results (2) COPD exacerbation Onset Date: 03/23/17 Current Visit: No Status: Acute Plan: COPD exacerbation Now resolved. -Duonebs, Steroids and Oxygen for now -Pulmonology consulted. Appreciated Reccs (3) HTN (hypertension) Onset Date: 03/23/17 Current Visit: No Status: Chronic Qualifiers: Hypertension type: essential hypertension Qualified Code(s): I10 - Essential (primary) hypertension (4) Hypothyroid Onset Date: 03/23/17 Current Visit: No Status: Chronic Qualifiers: Hypothyroidism type: acquired Qualified Code(s): E03.9 - Hypothyroidism, unspecified - Plan Pending clinical improvement at this time Discharge Plan: Home Plan to discharge in: 48 Hours - Code Status/Comfort Care Code Status Assessed: Yes Critical Care: No
[2018-12-03 21:24] LABS: Urine Appearance CLEAR; Urine Bilirubin NEGATIVE (NEG); Urine Blood NEGATIVE (NEG); Urine Color YELLOW; Urine Glucose NEGATIVE (NEG); Urine Protein NEGATIVE (NEG); Urine Specific Gravity 1.025 (1.005-1.030); Urine Urobilinogen 0.2 mg/dL (0.2-1.0)
[2018-12-03 21:28] LABS: Urine Microscopic Reflex ORDER UMIC
[2018-12-03 21:31] LABS: Urine Bacteria <20 /HPF (<20); Urine Culture Reflex Order REFLEXED; Urine RBC NONE SEEN /HPF (NONE SEEN)
[2018-12-04] MEDS: PIPER/TAZO/NS 3.375gm 3.375 GM/100 ML BAG IVPB SCH ×3 (00:26→17:25)
[2018-12-04] MEDS: ALBUTEROL 2.5 MG/3 ML NEB SOL NEB SCH ×4 (01:15→19:40)
[2018-12-04] MEDS: IPRATROPIUM BROM 0.5MG/2.5ML NEB SCH ×4 (01:15→19:40)
[2018-12-04] MEDS: ENOXAPARIN 40 MG/0.4 ML SQ SCH (08:18)
[2018-12-04] MEDS: predniSONE 10 MG TAB PO SCH ×2 (08:18→20:46)
--- NOTE | 2018-12-04 13:12 | P.PN ---
Subjective Date of Service: 12/04/18 Chief Complaint: Shortness of breath and bilateral lower extremity edema/ erythema Subjective: No C/O voiced, Ambulating, Improving, Working w/ PT, Doing well Review of Systems 10-point ROS is otherwise unremarkable Physical Examination - Vital Signs Temperature: 98.4 F Blood Pressure: 137/84 Pulse: 79 Respirations: 18 Pulse Ox (%): 91 - Physical Exam General: Alert, In no apparent distress HEENT: Atraumatic, PERRLA, EOMI Neck: Supple, JVD not distended Respiratory: Clear to auscultation bilaterally, Normal air movement Cardiovascular: Regular rate/rhythm, Normal S1 S2 Gastrointestinal: Normal bowel sounds, No tenderness Musculoskeletal: No tenderness Integumentary: No rashes Neurological: Normal speech, Normal tone, Normal affect Lymphatics: No axilla or inguinal lymphadenopathy - Studies Medications List Reviewed: Yes Assessment And Plan - Current Problems (Diagnosis) (1) Bilateral lower leg cellulitis Current Visit: Yes Status: Acute Plan: BL LE Cellulites with Chronic Lymphedema -IV Zosyn at this time -Blood and wound culture pending at this time -will clean the wound with Betadine and Wrap the leg and elevate it -Will f.u with Results (2) COPD exacerbation Onset Date: 03/23/17 Current Visit: No Status: Acute Plan: COPD exacerbation Now resolved. -Duonebs, Steroids and Oxygen for now -Pulmonology consulted. Appreciated Reccs (3) HTN (hypertension) Onset Date: 03/23/17 Current Visit: No Status: Chronic Qualifiers: Hypertension type: essential hypertension Qualified Code(s): I10 - Essential (primary) hypertension (4) Hypothyroid Onset Date: 03/23/17 Current Visit: No Status: Chronic Qualifiers: Hypothyroidism type: acquired Qualified Code(s): E03.9 - Hypothyroidism, unspecified - Plan Pending clinical improvement at this time Discharge Plan: Home Plan to discharge in: 48 Hours - Code Status/Comfort Care Code Status Assessed: Yes Critical Care: No
[2018-12-04] MEDS ORDERED: HYDROCODONE/APAP 5/325 MG TAB PO ONE (14:00)
[2018-12-04] MEDS: METOPROLOL TAR 25 MG TAB PO SCH (17:48)
[2018-12-04] MEDS ORDERED: METOPROLOL XL 25 MG TAB PO SCH (18:00)
[2018-12-05] MEDS: PIPER/TAZO/NS 3.375gm 3.375 GM/100 ML BAG IVPB SCH ×2 (00:37→09:00)
[2018-12-05] MEDS: ALBUTEROL 2.5 MG/3 ML NEB SOL NEB SCH ×2 (02:00→08:00)
[2018-12-05] MEDS: IPRATROPIUM BROM 0.5MG/2.5ML NEB SCH ×2 (02:00→08:00)
[2018-12-05] MEDS: METOPROLOL TAR 25 MG TAB PO SCH (05:01)
[2018-12-05] MEDS: predniSONE 10 MG TAB PO SCH (09:45)
[2018-12-05] MEDS: ENOXAPARIN 40 MG/0.4 ML SQ SCH (09:45)
[2018-12-05 09:54] VITALS: O2SAT 93
[2018-12-05 10:05] VITALS: BP 178/92; TEMP 97.7
--- NOTE | 2018-12-05 23:28 | DS ---
Date of Discharge: 12/05/2018 Code status: Full Admitting Diagnoses: 1. Hypoxemia. 2. Chronic obstructive pulmonary disease exacerbation, acute. 3. Bilateral lower extremity edema. 4. Bilateral lower leg cellulitis. 5. Essential hypertension. 6. Hypothyroidism. 7. Morbid obesity. Discharge Diagnoses: 1. Bilateral lower leg cellulitis. 2. Acute chronic obstructive pulmonary disease exacerbation. 3. Hypoxemia. 4. Essential hypertension. 5. Hypothyroidism. 6. Morbid obesity. Consultants: Dr. Mcneil with Pulmonology. Hospital Course: Patient is a 78-year-old female with past medical history of COPD, hypertension, hypothyroidism, who was on oxygen at home, comes in with shortness of breath. Patient was found to have COPD exacerbation. She was started on breathing treatments, IV steroids and cultures were obtained. Blood cultures were negative to date. Patient had a chest x-ray which showed interstitial pulmonary edema. Patient does also have lower extremity edema which is chronic. However, the patient was having some cellulitis of the lower extremities. Patient was started on broad-spectrum IV antibiotics. Wound cultures from the left ankle were obtained, which did not show 2+ staph coagulase positive, ID pending. Patient overall did well. Her shortness of breath improved significantly. Her lactate was negative. Procalcitonin level was also negative. There was no signs of sepsis. Patient was then discharged home with oral antibiotics. She was cleared from life consultant's standpoint. Medications: As per medication reconciliation list. Followup: Follow up with primary care physician in 2 to 3 days. Follow up with telehealth coordinator, Dr. Mcneil in 2 weeks. [facility]. Return to ER for worsening condition. Diet: Heart healthy. Activity: As tolerated. Physical Examination: General: Awake, alert, oriented, morbidly obese, elderly female, ill appearing and does not appear to be in any acute distress. CV: S1, S2. Respiratory: Moving air well bilaterally. No wheezing. Gastrointestinal: Abdomen is soft, nontender, nondistended. Positive bowel sounds. Extremities: No clubbing or cyanosis. Patient has edema of the bilateral lower extremities. Skin: Erythema of the bilateral lower extremities. Chronic venous stasis changes also present. Patient has excoriated skin bandaged. Neurologic: Nonfocal. Time Spent: Total time spent discharging the patient was 37 minutes. SA/MODL Voice ID: [id number] Report ID: [id number] ALEXANDR
--- NOTE | 2018-12-06 17:00 | RAD REPORT ---
EXAM DESCRIPTION: CT - Ct Stroke Brain Wo Cont - 12/03/2018 5:47 am ADDENDUM #1 THIS REPORT CONTAINS FINDINGS THAT MAY BE CRITICAL TO PATIENT CARE: The findings were verbally discu ssed via telephone conference with Dr. Shaw by Dr. Helen Hearn on 12/03/2018 5:46 AM CDT .The results were acknowledged and understood. Electronically signed by: Helen Hearn MD 12/03/2018 5:46 AM CDT End of Addendum EXAM DESCRIPTION: CT Head Without Intravenous Contrast CLINICAL HISTORY: The patient is 78 years years old, Female; change in mentation TECHNIQUE: Axial computed tomography images of the head/brain without intravenous contrast. Sagitt al and coronal reformatted images were created and reviewed. This CT exam was performed using one o r more of the following dose reduction techniques: automated exposure control, adjustment of the mA and/or kV according to patient size, and/or use of iterative reconstruction technique. COMPARISON: No relevant prior studies available. FINDINGS: BRAIN: No intracerebral or extracerebral mass lesions are identified. Lawson/white matter distinction is maintained. There is no evidence of intracranial hemorrhage. There is no evidence of acute territorial infarct. (It should be noted that acute infarct may not b e discernible in the first [address] ) There is benign ossification of the falx cerebri. MIDLINE SHIFT: There is no shift of the midline structures. VENTRICLES: There is prominence of the ventricles, sulci, cerebellar folia, and basilar cisterns c onsistent with volume loss. BONES/JOINTS: There is no acute calvarial abnormality or other discernible acute osseous abnormali ties. Benign hyperostosis frontalis is present. SOFT TISSUES: Unremarkable. VASCULATURE: There is minimal atherosclerotic calcification in the siphons of the bilateral internet e commerce specialist al carotid and vertebral arteries. SINUSES: The visualized paranasal sinuses are clear with the exception of slight mucoperiosteal th ickening in the left maxillary sinus. MASTOID AIR CELLS: The mastoids and middle ears are clear. IMPRESSION: 1. No acute intracranial abnormality. (It should be noted that acute infarct may not be discernible in the first [address]) a follow-up head ct or mri is recommended if neurologic symptoms persist. 2. Volume loss. 3. ASVD. 4. Remainder of findings as discussed above. Electronically signed by: Helen Hearn MD 12/03/2018 5:40 AM CDT Due to temporary technical issues with the PACS/Fluency reporting system, reports are being signed by the in house radiologist as a courtesy to ensure prompt reporting. The interpreting radiologist is f ully responsible for the content of the report.
== END 2018-12-05 12:22 | disposition home or self-care (01) | DRG 603 ==
LOC: ER 16:54 → ERHOLD 23:24 → 2ND 12-02 00:04
PROVIDERS: ADMIT Hospitalist; ATTEND Hospitalist
DX: L03.116 Cellulitis of left lower limb (principal); J44.1 Chronic obstructive pulmonary disease with (acute) exacerbation; Z68.41 Body mass index [BMI] 40.0-44.9, adult; L03.115 Cellulitis of right lower limb; B95.61 Methicillin susceptible Staphylococcus aureus infection as the cause of diseases classified elsewhere; R09.02 Hypoxemia; I10 Essential (primary) hypertension; E03.9 Hypothyroidism, unspecified; E66.01 Morbid (severe) obesity due to excess calories; Z99.81 Dependence on supplemental oxygen; I87.8 Other specified disorders of veins; Z23 Encounter for immunization
CPT/HCPCS: 36415; 70450; 71045; 80048; 80053; 80076; 81003; 81015; 82550; 82553; 82962; 83605; 83690; 83735; 83880; 84100; 84145; 84484; 85025; 85610; 85652; 85730; 87040; 87070; 87077; 87086; 87088; 87186; 87205; 90471; 90670; 93005; 94640; 94760; 96374; 97116; 97161; 99285; J1650; J1940; J2543; J2930; J7030; J7512; P9047; Q2035

== ENCOUNTER 2019-05-23 15:39 | Inpatient (IN) | payer OTHER ==
--- OUTSIDE RECORDS SUMMARY | 2019-05-23 15:41 | XMS REPORT ---
:1940 [facility] Address [address] [place] [address] Care Team Providers Name Role Phone Unavailable Unavailable Unavailable Problems This patient has no known problems. Allergies, Adverse Reactions, Alerts This patient has no known allergies or adverse reactions. Medications This patient has no known medications.
--- NOTE | 2019-05-23 16:35 | RAD REPORT ---
EXAM DESCRIPTION: RAD - Chest Single View - 05/23/2019 4:21 pm CLINICAL HISTORY: SOB Chest pain. COMPARISON: Chest Single View dated 12/01/2018; Chest Single View dated 09/19/2018; Chest Single View dated 03/22/2017; CHEST PA AND LAT 2 VIEW dated 10/27/2012 FINDINGS: Portable technique limits examination quality. Mild interstitial pulmonary edema seen. The heart is mildly enlarged in size. No displaced fractures. IMPRESSION: Mild CHF.
[2019-05-23 16:49] LABS: Absolute Lymphocytes (CBC) 1.4 K/uL (0.7-4.9); Basophils % 0.9 % (0-1.3); Hematocrit 36.1 % (36.0-45.0); Lymphocytes % 15.6 % (15.3-44.8); MPV 8.3 fL (7.6-11.3); RBC Red Blood Cell Count 4.32 M/uL (3.86-4.86)
[2019-05-23 16:58] LABS: Protime INR 1.08
[2019-05-23 17:07] LABS: ALT/SGPT 20 U/L (12-78); AST/SGOT 17 U/L (15-37); Alkaline Phosphatase 77 U/L (45-117); BUN Blood Urea Nitrogen 14 mg/dL (7-18); Bicarbonate 38 mmol/L (21-32); Bilirubin Direct < 0.1 mg/dL (0-0.2); Bilirubin Total 0.3 mg/dL (0.2-1.0); Glucose Level 101 mg/dL (74-106); Potassium 3.8 mmol/L (3.5-5.1); Sodium Level 141 mmol/L (136-145)
[2019-05-23 17:08] LABS: Albumin 2.9 g/dL (3.4-5.0); Magnesium 2.2 mg/dL (1.8-2.4); NT PRO-BNP 294 pg/mL (<450); Protein, Total 7.5 g/dL (6.4-8.2); Troponin (Emerg Dept Use Only) 0.03 ng/mL (0.0-0.045)
[2019-05-23] MEDS ORDERED: IPRATROPIUM BROM 0.5MG/2.5ML ONE (17:43)
[2019-05-23] MEDS ORDERED: METHYLPREDNISOLONE 125 MG INJ ONE (17:43)
[2019-05-23] MEDS ORDERED: ALBUTEROL 2.5 MG/3 ML NEB SOL ONE (17:44)
[2019-05-23] MEDS ORDERED: FUROSEMIDE 40 MG/4 ML VIAL ONE (17:44)
--- NOTE | 2019-05-23 18:03 | EDPHYS ---
Physician Documentation [facility] Name: Rehana Yusuf Age: 78 yrs Sex: Female : 1940 Arrival Date: 05/23/2019 Time: 15:41 Bed 15 Private MD: ED Physician Prosper Vieyra HPI: 05/22 16:05 This 78 yrs old Female presents to ER via Wheelchair with complaints of cp Breathing Difficulty. 16:05 The patient has shortness of breath at rest. Onset: The symptoms/episode began/occurred cp 1 week(s) ago. Duration: The symptoms are continuous, and are steadily getting worse. Associated signs and symptoms: Pertinent negatives: chest pain, productive cough, diaphoresis, fever, numbness in extremities, vomiting. Severity of symptoms: in the emergency department the symptoms are unchanged despite home interventions. The patient has experienced similar episodes in the past, multiple times. The patient has not recently seen a physician. Patient reports she has not been able to get prescribed home oxygen for 1 month. Historical: - Allergies: 15:57 Celebrex; ca1 - Home Meds: 15:45 Advair Diskus 100-50 mcg/dose Inhl dsdv 1 puff 2 times per day [Active]; gabapentin rb1 Oral [Active]; Lasix 40 mg Oral tab [Active]; levothyroxine 50 mcg tab [Active]; metoprolol tartrate 25 mg Oral tab [Active]; simvastatin 40 mg Oral tab 1 tab once daily [Active]; - PMHx: 15:57 Hypertension; Thyroid problem; ca1 - PSHx: 15:57 Carpal Tunnel Repair; ca1 - Immunization history:: Adult Immunizations up to date, Pneumococcal vaccine is up to date, Flu vaccine is up to date. - Social history:: Smoking status: Patient denies any tobacco usage or history of. ROS: 16:10 Constitutional: Negative for body aches, chills, fever, poor PO intake. cp 16:10 Eyes: Negative for injury, pain, redness, and discharge. cp 16:10 ENT: Negative for drainage from ear(s), ear pain, sore throat, difficulty swallowing, difficulty handling secretions. 16:10 Cardiovascular: Positive for edema, Negative for chest pain, palpitations. 16:10 Respiratory: Positive for cough, with no reported sputum, shortness of breath, at rest. 16:10 Abdomen/GI: Negative for abdominal pain, nausea, vomiting, and diarrhea, constipation, black/tarry stool, rectal bleeding. 16:10 Back: Negative for radiated pain. 16:10 : Negative for urinary symptoms. 16:10 Skin: Positive for erythema, swelling, of the left lower leg and right lower leg, Negative for rash. 16:10 Neuro: Negative for altered mental status, dizziness, headache, syncope, weakness. 16:10 All other systems are negative. Exam: 16:15 Constitutional: The patient appears in no acute distress, alert, awake, cp non-diaphoretic, non-toxic, well developed, well nourished, obese. 16:15 Head/Face: Normocephalic, atraumatic. Eyes: Pupils equal round and reactive to light, cp extra-ocular motions intact. Lids and lashes normal. Conjunctiva and sclera are non-icteric and not injected. Cornea within normal limits. Periorbital areas with no swelling, redness, or edema. ENT: Nares patent. No nasal discharge, no septal abnormalities noted. Tympanic membranes are normal and external auditory canals are clear. Oropharynx with no redness, swelling, or masses, exudates, or evidence of obstruction, uvula midline. Mucous membranes moist. 16:15 Neck: ROM/movement: is normal, is supple, without pain, no range of motions limitations. 16:15 Chest/axilla: Inspection: normal, Palpation: is normal, no crepitus, no tenderness. 16:15 Cardiovascular: Rate: normal, Rhythm: regular, Edema: pedal edema, that is marked, ankle edema, that is marked, JVD: is not appreciated. 16:15 Respiratory: the patient does not display signs of respiratory distress, Respirations: labored breathing, that is mild, Breath sounds: decreased breath sounds, that are mild, throughout, wheezing: that is mild, is heard diffusely. 16:15 Abdomen/GI: Inspection: abdomen appears normal, Bowel sounds: active, all quadrants, Palpation: abdomen is soft and non-tender, in all quadrants. 16:15 Back: pain, is absent, ROM is normal. 16:15 Skin: cellulitis, is not appreciated, rash can be described as erythematous, on the right lower leg and left lower leg. 16:15 Neuro: Orientation: to person, place \T\ time. Mentation: is normal, Motor: moves all fours, strength is normal. Vital Signs: 15:53 BP 146 / 102; Pulse 80; Resp 22 S; Temp 97.1(TE); Pulse Ox 94% on R/A; Weight 124.74 kg ca1 (R); Height 5 ft. 6 in. (167.64 cm) (R); Pain 0/10; 15:58 Pulse Ox 100% on 2 lpm NC; ca1 16:00 BP 142 / 73; Pulse 71; Resp 22; Pulse Ox 100% on 2 lpm NC; rb1 17:00 BP 173 / 77; Pulse 83; Resp 20; Pulse Ox 100% on 2 lpm NC; rb1 18:00 BP 173 / 81; Pulse 71; Resp 20; Pulse Ox 100% on Nebulizer Mask; Pain 0/10; rb1 19:30 BP 126 / 114; Pulse 74; Resp 14; Pulse Ox 99% on 2 lpm NC; ls4 15:53 Body Mass Index 44.39 (124.74 kg, 167.64 cm) ca1 MDM: 15:49 Patient medically screened. aleksey 16:15 Differential diagnosis: asthma, CHF exacerbation, Chronic Obstructive Pulmonary Disease cp pneumonia, pulmonary edema, Sepsis Unstable Angina. 17:58 Data reviewed: vital signs, nurses notes, lab test result(s), EKG, radiologic studies, cp plain films, and as a result, I will admit patient. 17:58 Antibiotic administration: Not indicated, the patient does not have an appreciated cp infiltrate. Response to treatment: the patient's symptoms have mildly improved after treatment. 18:00 Physician consultation: Daljit Escobar DO was contacted at 17:45, regarding admission, cp to the telemetry unit. patient's condition, and will see patient in ED, shortly. 05/22 16:01 Order name: Basic Metabolic Panel; Complete Time: 17:22 cp 05/22 17:22 Interpretation: Normal except: CO2 38; GFR 56. 05/22 16:01 Order name: CBC with Diff; Complete Time: 17:37 cp 05/22 17:36 Interpretation: Normal except: HGB 11.1; MCH 25.7; MCHC 30.7; RDW 18.8. 05/22 16:01 Order name: LFT's; Complete Time: 17:22 cp 05/22 20:51 Interpretation: Normal except: ALB 2.9; GLOB 4.6; A/G 0.6. cp 05/22 16:01 Order name: Magnesium; Complete Time: 17:22 cp 05/22 16:01 Order name: NT PRO-BNP; Complete Time: 17:22 cp 05/22 16:01 Order name: PT-INR; Complete Time: 17:22 cp 05/22 20:52 Interpretation: Abnormal: PT 12.7. cp 05/22 16:01 Order name: Troponin (emerg Dept Use Only); Complete Time: 17:22 cp 05/22 16:01 Order name: XRAY Chest (1 view); Complete Time: 17:22 cp 05/22 16:03 Order name: Influenza Screen (a \T\ B); Complete Time: 17:22 cp 05/22 17:24 Order name: Urine Microscopic Only; Complete Time: 20:13 cp 05/22 17:28 Order name: US Extremity Venous W Compression Leonardo; Complete Time: 20:13 cp 05/22 20:13 Interpretation: Report reviewed. cp 05/22 18:45 Order name: Urine Dipstick--Ancillary (enter results); Complete Time: 20:51 bd 05/22 20:51 Interpretation: Normal except: UBLD 1+; UESTR TRACE. cp 05/22 16:01 Order name: EKG; Complete Time: 16:02 cp 05/22 16:01 Order name: Cardiac monitoring; Complete Time: 17:05 cp 05/22 16:01 Order name: EKG - Nurse/Tech; Complete Time: 17:05 cp 05/22 16:01 Order name: IV Saline Lock; Complete Time: 17:05 cp 05/22 16:01 Order name: Labs collected and sent; Complete Time: 17:05 cp 05/22 16:01 Order name: O2 Per Protocol; Complete Time: 16:14 cp 05/22 16:01 Order name: O2 Sat Monitoring; Complete Time: 16:14 cp 05/22 16:11 Order name: Dressing - Wound: dressing change of lower legs please; Complete Time: 17:05cp 05/22 17:24 Order name: Urine Dipstick-Ancillary (obtain specimen); Complete Time: 19:18 cp 05/22 18:12 Order name: Social Service Consult EDMS Administered Medications: 17:42 Drug: Albuterol - atroVENT (3:1) (2.5 mg - 0.5 mg) 3 ml Route: Nebulizer; rb1 18:10 Follow up: Response: No adverse reaction; No change in condition rb1 17:43 Drug: Lasix 40 mg Route: IVP; Site: right antecubital; rb1 18:00 Follow up: Response: No adverse reaction rb1 17:43 Drug: SOLU-Medrol 80 mg Route: IVP; Site: right antecubital; rb1 18:00 Follow up: Response: No adverse reaction rb1 Disposition: 05/23 06:12 Co-signature as Attending Physician, Prosper Vieyra MD I agree with the assessment and aleksey plan of care. Disposition: 05/23/19 18:03 Hospitalization ordered by Daljit Escobar for Observation. Preliminary diagnosis are Unspecified combined systolic (congestive) and diastolic (congestive) heart failure, Pulmonary edema, Shortness of breath. - Bed requested for Telemetry/MedSurg (observation). - Status is Observation. ls4 - Condition is Stable. - Problem is an acute exacerbation. - Symptoms have improved. Signatures: Dispatcher [employer] EDAL Dionna Short RN RN mw Anderson, Corey, MD MD cha Page, Corey, PA PA cp Briana Lopez RN RN rb1 Aria Henry RN RN ls4 Em Ann RN RN ca1 Corrections: (The following items were deleted from the chart) 05/22 19:44 18:03 Hospitalization Ordered by Daljit Escobar DO for Observation. Preliminary mw diagnosis is Unspecified combined systolic (congestive) and diastolic (congestive) heart failure; Pulmonary edema; Shortness of breath. Bed requested for Telemetry/MedSurg (observation). Status is Observation. Condition is Stable. Problem is an acute exacerbation. Symptoms have improved. cp 21:53 19:44 05/23/2019 18:03 Hospitalization Ordered by Daljit Escobar DO for Observation. ls4 Preliminary diagnosis is Unspecified combined systolic (congestive) and diastolic (congestive) heart failure; Pulmonary edema; Shortness of breath. Bed requested for Telemetry/MedSurg (observation). Status is Observation. Condition is Stable. Problem is an acute exacerbation. Symptoms have improved. mw
--- NOTE | 2019-05-23 18:03 | ER ---
Nurse's Notes [facility] Name: Rehana Yusuf Age: 78 yrs Sex: Female : 1940 Arrival Date: 05/23/2019 Time: 15:41 Bed 15 Private MD: Diagnosis: Unspecified combined systolic (congestive) and diastolic (congestive) heart failure;Pulmonary edema;Shortness of breath Presentation: 05/22 15:53 Chief complaint: Patient states: SOB x 1 week. Pt reports she's on O2 PRN but has been ca1 out of O2 for a month now. Reports SOB at rest. History of asthma. Denies cough that is out of the ordinary. Pt states, "I have been coughing all my life" Denies COPD, CHF. Noted edema and cellulitis on both legs. Coronavirus screen: The patient has NOT traveled to a country currently being monitored by the [facility] within the last 14 days. The patient has NOT had contact with any known and/or suspected case of coronavirus. Ebola Screen: Patient negative for fever greater than or equal to 101.5 degrees Fahrenheit, and additional compatible Ebola Virus Disease symptoms Patient denies exposure to infectious person. Patient denies travel to an Ebola-affected area in the 21 days before illness onset. No symptoms or risks identified at this time. Initial Sepsis Screen: Does the patient meet any 2 criteria? No. Patient's initial sepsis screen is negative. Does the patient have a suspected source of infection? No. Patient's initial sepsis screen is negative. Risk Assessment: Do you want to hurt yourself or someone else? Patient reports no desire to harm self or others. Onset of symptoms was May 23, 2019. 15:53 Method Of Arrival: Wheelchair ca1 15:53 Acuity: TJ 2 ca1 Triage Assessment: 15:58 Respiratory: Reports shortness of breath at rest Respiratory effort is even, labored, ca1 pursed lip, Respiratory pattern is tachypnea Onset: The symptoms/episode began/occurred gradually, the patient has mild shortness of breath. Historical: - Allergies: 15:57 Celebrex; ca1 - Home Meds: 15:45 Advair Diskus 100-50 mcg/dose Inhl dsdv 1 puff 2 times per day [Active]; gabapentin rb1 Oral [Active]; Lasix 40 mg Oral tab [Active]; levothyroxine 50 mcg tab [Active]; metoprolol tartrate 25 mg Oral tab [Active]; simvastatin 40 mg Oral tab 1 tab once daily [Active]; - PMHx: 15:57 Hypertension; Thyroid problem; ca1 - PSHx: 15:57 Carpal Tunnel Repair; ca1 - Immunization history:: Adult Immunizations up to date, Pneumococcal vaccine is up to date, Flu vaccine is up to date. - Social history:: Smoking status: Patient denies any tobacco usage or history of. Screenin:45 Abuse screen: Denies threats or abuse. Nutritional screening: No deficits noted. rb1 Tuberculosis screening: No symptoms or risk factors identified. Fall Risk None identified. Assessment: 15:45 General: Appears in no apparent distress. comfortable, obese, Behavior is calm, rb1 cooperative. Pain: Denies pain. Neuro: Level of Consciousness is awake, alert, obeys commands, Oriented to person, place, time, situation. Cardiovascular: Capillary refill < 3 seconds is brisk in bilateral fingers. Respiratory: Reports shortness of breath at rest on exertion Airway is patent Respiratory effort is using tripod position, Respiratory pattern is symmetrical, tachypnea. GI: No signs and/or symptoms were reported involving the gastrointestinal system. : No signs and/or symptoms were reported regarding the genitourinary system. Derm: Skin is red, bilateral lower legs. Musculoskeletal: Range of motion: intact in all extremities. 15:59 Reassessment: FABIANA Moncada at bedside. ca1 16:14 Reassessment: X-ray at pt. bedside. rb1 16:45 Reassessment: Patient appears in no apparent distress at this time. No changes from rb1 previously documented assessment. 17:45 Reassessment: Patient appears in no apparent distress at this time. Patient and/or rb1 family updated on plan of care and expected duration. Pain level reassessed. Patient is alert, oriented x 3, equal unlabored respirations, skin warm/dry/pink. pt. is watching TV Patient denies pain at this time. 17:52 Reassessment: Dr. Escobar is at the pt. bedside. rb1 18:29 Reassessment: Assisted pt. to the bedside. commode. rb1 20:31 Reassessment: Patient appears in no apparent distress at this time. Patient and/or ls4 family updated on plan of care and expected duration. Pain level reassessed. Patient is alert, oriented x 3, equal unlabored respirations, skin warm/dry/pink. Vital Signs: 15:53 BP 146 / 102; Pulse 80; Resp 22 S; Temp 97.1(TE); Pulse Ox 94% on R/A; Weight 124.74 kg ca1 (R); Height 5 ft. 6 in. (167.64 cm) (R); Pain 0/10; 15:58 Pulse Ox 100% on 2 lpm NC; ca1 16:00 BP 142 / 73; Pulse 71; Resp 22; Pulse Ox 100% on 2 lpm NC; rb1 17:00 BP 173 / 77; Pulse 83; Resp 20; Pulse Ox 100% on 2 lpm NC; rb1 18:00 BP 173 / 81; Pulse 71; Resp 20; Pulse Ox 100% on Nebulizer Mask; Pain 0/10; rb1 19:30 BP 126 / 114; Pulse 74; Resp 14; Pulse Ox 99% on 2 lpm NC; ls4 15:53 Body Mass Index 44.39 (124.74 kg, 167.64 cm) ca1 ED Course: 15:41 Patient arrived in ED. rg4 15:42 Prosper Martinez PA is PHCP. cp 15:42 Prosper Vieyra MD is Attending Physician. cp 15:43 Briana Lopez, LOY is Primary Nurse. rb1 15:45 Patient has correct armband on for positive identification. Bed in low position. Call rb1 light in reach. Side rails up X 1. carroter on. Pulse ox on. NIBP on. 15:56 Triage completed. ca1 15:57 Arm band placed on right wrist. ca1 16:21 XRAY Chest (1 view) In Process Unspecified. EDMS 16:45 Missed attempt(s): 22 gauge in right forearm. Bleeding controlled, band aid applied, rb1 catheter tip intact. 16:52 Inserted saline lock: 22 gauge in right antecubital area, using aseptic technique. rb1 Blood collected. 18:01 Daljit Escobar DO is Hospitalizing Provider. cp 18:43 US Extremity Venous W Compression Leonardo In Process Unspecified. EDMS Administered Medications: 17:42 Drug: Albuterol - atroVENT (3:1) (2.5 mg - 0.5 mg) 3 ml Route: Nebulizer; rb1 18:10 Follow up: Response: No adverse reaction; No change in condition rb1 17:43 Drug: Lasix 40 mg Route: IVP; Site: right antecubital; rb1 18:00 Follow up: Response: No adverse reaction rb1 17:43 Drug: SOLU-Medrol 80 mg Route: IVP; Site: right antecubital; rb1 18:00 Follow up: Response: No adverse reaction rb1 Output: 18:29 Urine: 170ml (Voided); Total: 170ml. rb1 Outcome: 18:03 Decision to Hospitalize by Provider. cp 20:27 Admitted to Tele Report called to Fabby GRANADO ls4 21:53 Patient left the ED. ls4 Signatures: Dispatcher [employer] EDMS Prosper Martinez PA PA cp Barber, Rebecca RN RN rb1 Svitlana Lawrence Lisa, RN RN ls4 Em Ann RN RN ca1
--- NOTE | 2019-05-23 18:11 | P.HP ---
Certification for Inpatient Patient admitted to: Observation With expected LOS: <2 Midnights Patient will require the following post-hospital care: Home Health Services Practitioner: I am a practitioner with admitting privileges, knowledge of patient current condition, hospital course, and medical plan of care. Services: Services provided to patient in accordance with Admission requirements found in Title 42 Section 412.3 of the Code of Federal Regulations Patient History Date of Service: 05/23/19 Primary Care Provider: Dr. Faria Reason for admission: Shortness of breath History of Present Illness: 78-year-old female with history of CHF, lymphedema, hypertension and COPD. Patient has been reporting increasing shortness of breath over the last several days. She reports some mild cough and congestion. She denies any fever, chills , nausea or vomiting. Patient has been using her nebulized medication to help with her shortness of breath. Patient does take Lasix but is not on a fluid restriction. Patient reports no recent travel. No fever noted. She was not improving therefore she came to the ER for further evaluation. In the ER patient evaluated. Chest x-ray shows mild CHF pattern. White count 9.2, hemoglobin 11. Sodium 141, potassium 3.8 %period% creatinine 0.97 with a GFR 56. Patient admitted for further evaluation. Patient given IV Lasix in the emergency room. When I saw the patient in the ER, she appeared stable. She had not appear in respiratory distress. She did not appear septic. Prior echocardiogram in 2013 shows EF of 86%. Allergies celecoxib [From Celebrex] Allergy (Severe, Verified 12/02/18 01:07) Anaphylaxis Home medications list reviewed: Yes Home Medications: Amitriptyline [Elavil*] 25 mg PO BEDTIME 12/02/18 Fluticasone/Vilanterol [Breo Ellipta 200-25 Mcg INH] 1 puff IN DAILY 12/02/18 Furosemide [Lasix*] 40 mg PO DAILY 12/02/18 Gabapentin 600 mg PO DAILY 12/02/18 Levothyroxine Sodium 50 mcg PO DAILY 12/02/18 Simvastatin 40 mg PO BEDTIME 12/02/18 Metoprolol Tartrate 25 mg PO BID 12/04/18 Amoxicillin/Potassium Clav [Augmentin 875-125 Tablet] 1 each PO BID #14 tablet 12/05/18 predniSONE [Deltasone*] 10 mg PO BID #10 tab 12/05/18 - Past Medical/Surgical History Diabetic: No -: COPD -: HTN -: Chronic diastolic CHF -: Hypothyroidism -: Hyperlipidemia -: Chronic lymphedema -: Morbid obesity -: Carpal Tunnel Repair -: Vaginal hysterectomy Psychosocial/ Personal History: Patient is a . She lives with her brother and niece. - Family History Family History: Reviewed- Non-Contributory - Social History Smoking Status: Never smoker Alcohol use: Yes CD- Drugs: No Caffeine use: Yes Place of Residence: Home Review of Systems General: As per HPI Eyes: Unremarkable ENT: Unremarkable Respiratory: Shortness of Breath, SOB with Excertion, As per HPI Cardiovascular: Edema, As per HPI Gastrointestinal: Unremarkable Genitourinary: Unremarkable Musculoskeletal: Pedal edema, As per HPI Integumentary: Unremarkable Neurological: Unremarkable Lymphatics: Unremarkable Physical Examination - Physical Exam General: Alert, In no apparent distress, Oriented x3, Cooperative HEENT: Atraumatic, Normocephalic, Mucous membr. moist/pink Neck: Supple Respiratory: Other (Mild crackles to the bases bilateral) Cardiovascular: Normal pulses, Regular rate/rhythm Gastrointestinal: Normal bowel sounds, Soft and benign, Non-distended, No tenderness, No masses, No rebound, No guarding Musculoskeletal: No tenderness, No warmth Integumentary: Other (Chronic lymphedema to the lower extremities) Neurological: Normal speech, Normal strength at 5/5 x4 extr, Normal tone, Normal affect - Studies Laboratory Data (last 24 hrs) 05/23/19 16:37: PT 12.7 H, INR 1.08 05/23/19 16:37: WBC 9.2, Hgb 11.1 L, Hct 36.1, Plt Count 365 05/23/19 16:37: Sodium 141, Potassium 3.8, BUN 14, Creatinine 0.97, Glucose 101 , Magnesium 2.2, Total Bilirubin 0.3, AST 17, ALT 20, Alkaline Phosphatase 77 Microbiology Data (last 24 hrs): 05/23/19 16:37 Nasopharnyx Influenza Type A Antigen Screen - Final 05/23/19 16:37 Nasopharnyx Influenza Type B Antigen Screen - Final Assessment and Plan - Plan Impression: Shortness of breath secondary to acute on chronic diastolic CHF COPD Hypertension Chronic bilateral lymphedema Morbid obesity Hyperlipidemia Hypothyroidism Suspect obstructive sleep apnea Plan: Shortness of breath secondary to acute on chronic diastolic CHF: Patient will be admitted for further evaluation and treatment. Patient started on IV Lasix. Will continue with Lasix. Will teach on 1500 cc per day fluid restriction and low-salt diet. Will monitor telemetry and cardiac enzymes. Will obtain echocardiogram to further evaluate. Will repeat chest x-ray tomorrow. Patient may benefit with home health and physical therapy at discharge. Patient may also require home oxygen at discharge. Will provide Lovenox for DVT prophylaxis. Anticipate improvement over the next 24-48 hr. COPD: Will continue with COPD medication. Maintain oxygen above 93%. Respiratory to monitor closely. Hypertension: Continue metoprolol. Will monitor and adjust appropriately. Chronic bilateral lymphedema: Will have wound care evaluate lymphedema. Morbid obesity: Address lifestyle modification education. Hyperlipidemia: Will continue the medication. Hypothyroidism: Continue with medication. Will evaluate tsh and free T4. Suspect obstructive sleep apnea: Patient will benefit with sleep study as an outpatient. Discharge Plan: Home Plan to discharge in: 48 Hours - Advance Directives Does patient have a Living Will: No Does patient have a Durable POA for Healthcare: No - Code Status/Comfort Care Code Status Assessed: Yes (Patient is full code) Time Spent Managing Pts Care (In Minutes): 55
--- NOTE | 2019-05-23 18:49 | RAD REPORT ---
EXAM DESCRIPTION: US - Extrem Venous W Compress Leonardo - 05/23/2019 6:43 pm CLINICAL HISTORY: SWELLING Bilateral leg edema and swelling. COMPARISON: No comparisons TECHNIQUE: Real-time sonographic interrogation of the left and right lower extremity deep venous sys tems was performed. FINDINGS: Normal compressibility, flow augmentation, phasic flow and spontaneous flow is identified in both the left and right lower extremity deep venous systems. IMPRESSION: No sonographic evidence of left or right lower extremity deep venous thrombosis.
[2019-05-23 19:08] LABS: Urine Bacteria <20 /HPF (<20); Urine Culture Reflex Order NOT NEEDED; Urine RBC <5 /HPF (NONE SEEN)
[2019-05-23 20:40] LABS: Urine Glucose NEGATIVE (NEG)
[2019-05-23 20:41] LABS: Urine Blood 1+ (NEG); Urine Protein NEGATIVE (NEG); Urine pH 5.5 (5.0-7.0)
[2019-05-23] MEDS ORDERED: ONDANSETRON 4 MG/2 ML VIAL IV PRN (21:43)
[2019-05-23] MEDS ORDERED: DULERA 100/5 (MOMETASONE/FORMOTEROL) INHALER IH SCH (21:43)
[2019-05-23] MEDS ORDERED: IPRATROPIUM BROM 0.5MG/2.5ML NEB PRN (21:43)
[2019-05-23] MEDS ORDERED: ACETAMINOPHEN 500 MG TAB PO PRN (21:43)
[2019-05-23] MEDS ORDERED: AMITRIPTYLINE 25 MG TAB PO PRN (21:43)
[2019-05-23] MEDS ORDERED: ALBUTEROL 2.5 MG/3 ML NEB SOL NEB PRN (21:43)
[2019-05-23] MEDS: ATORVASTATIN 20 MG TAB PO SCH (22:00)
[2019-05-23] MEDS: METOPROLOL TAR 25 MG TAB PO SCH (23:02)
[2019-05-23] MEDS: GABAPENTIN 300 MG CAP PO SCH (23:03)
[2019-05-24 01:14] LABS: Troponin I 0.03 ng/mL (0.0-0.045)
[2019-05-24 05:39] LABS: Absolute Lymphocytes (CBC) 0.8 K/uL (0.7-4.9); Basophils % 0.8 % (0-1.3); Hematocrit 36.2 % (36.0-45.0); Lymphocytes % 8.5 % (15.3-44.8); MPV 8.1 fL (7.6-11.3); RBC Red Blood Cell Count 4.25 M/uL (3.86-4.86)
[2019-05-24] MEDS: LEVOTHYROXINE SOD 0.05 MG TABLET PO SCH ×2 (05:40→06:30)
[2019-05-24] MEDS: METOPROLOL TAR 25 MG TAB PO SCH ×3 (05:40→18:00)
[2019-05-24] MEDS ORDERED: METOPROLOL TAR 25 MG TAB PO SCH (06:00)
[2019-05-24 06:03] LABS: Magnesium 2.1 mg/dL (1.8-2.4); Potassium 4.3 mmol/L (3.5-5.1); Thyroid Stimulating Hormone 0.196 uIU/mL (0.360-3.740)
[2019-05-24 07:09] LABS: Arterial Blood Carboxyhemoglob 0.6 % (0-1.5); Blood Gas Oxyhemoglobin 93.9 % (94-97); Blood O2 Saturation 95.7 % (92-98.5)
[2019-05-24 08:05] LABS: Blood Morphology Comment NOT SEEN (NOT SEEN); Platelet Estimate ADEQ
[2019-05-24] MEDS ORDERED: HALOPERIDOL LACT 5 MG/ML INJ ONE (08:13)
[2019-05-24] MEDS ORDERED: HALOPERIDOL LACT 5 MG/ML INJ IV PRN ×2 (08:16→08:23)
[2019-05-24] MEDS ORDERED: ZIPRASIDONE MESYLA 20 MG/VIAL IM PRN (08:37)
[2019-05-24] MEDS ORDERED: WATER FOR INJ,STERILE 10 ML IM PRN (08:37)
--- NOTE | 2019-05-24 08:37 | P.CNS ---
Date of Consult: 05/24/19 Primary Care Provider: Dr. Faria Chief Complaint: Shortness of breath History of Present Illness: Patient is 78 years of age admitted with worsening shortness of breath cough congestion has a history of COPD currently very agitated hypoxic hypercapnic very agitated Allergies celecoxib [From Celebrex] Allergy (Severe, Verified 12/02/18 01:07) Anaphylaxis Home Medications: Amitriptyline [Elavil*] 25 mg PO BEDTIME 12/02/18 Fluticasone/Vilanterol [Breo Ellipta 200-25 Mcg INH] 1 puff IN DAILY 12/02/18 Furosemide [Lasix*] 40 mg PO DAILY 12/02/18 Gabapentin 600 mg PO DAILY 12/02/18 Levothyroxine Sodium 50 mcg PO DAILY 12/02/18 Simvastatin 40 mg PO BEDTIME 12/02/18 Metoprolol Tartrate 25 mg PO BID 12/04/18 - Past Medical/Surgical History Diabetic: No -: COPD -: HTN -: Chronic diastolic CHF -: Hypothyroidism -: Hyperlipidemia -: Chronic lymphedema -: Morbid obesity -: Carpal Tunnel Repair -: Vaginal hysterectomy Psychosocial/ Personal History: Patient is a . She lives with her brother and niece. - Social History Alcohol use: No CD- Drugs: No Caffeine use: Yes Place of Residence: Home Review of Systems is unable to be obtained Physical Examination Temp Pulse Resp BP Pulse Ox 98.9 F 77 18 160/77 H 96 05/24/19 04:00 05/24/19 04:00 05/24/19 04:00 05/24/19 04:00 05/24/19 04:00 General: Alert, Moderate distress Respiratory: Expiratory wheezes Cardiovascular: Normal S1 S2, Edema (Lymphedema bilaterally) Gastrointestinal: Normal bowel sounds, Soft and benign Laboratory Data (last 24 hrs) 05/23/19 16:37: PT 12.7 H, INR 1.08 05/23/19 16:37: WBC 9.2, Hgb 11.1 L, Hct 36.1, Plt Count 365 05/23/19 16:37: Sodium 141, Potassium 3.8, BUN 14, Creatinine 0.97, Glucose 101 , Magnesium 2.2, Total Bilirubin 0.3, AST 17, ALT 20, Alkaline Phosphatase 77 - Problems (1) Respiratory failure Current Visit: Yes Status: Acute Plan: Patient is 78 years of age admitted with respiratory failure acute on chronic as history of COPD very agitated he is screaming profanity is on the floor very hard to control chemistries reviewed Qualifiers: Respiratory failure complication: hypoxia and hypercapnia
--- NOTE | 2019-05-24 08:49 | EKG ---
Test Date: 2019-05-23 Test Time: 16:48:47 Metallurgical Engineering Technician: EVON MEASUREMENT RESULTS: Intervals: Rate: 77 TX: 130 QRSD: 92 QT: 422 QTc: 477 [place]: P: -9 TX: 130 QRS: 6 T: 60 INTERPRETIVE STATEMENTS: Normal sinus rhythm Cannot rule out Inferior infarct, age undetermined Abnormal ECG Compared to ECG 12/01/2018 19:10:18 No significant changes Electronically Signed On 05-24-19 08:48:31 CDT by Sigifredo Shaikh
[2019-05-24] MEDS ORDERED: predniSONE 10 MG TAB PO SCH (09:00)
[2019-05-24] MEDS: SPIRONOLACTONE 25 MG TABLET PO SCH ×2 (09:00→19:38)
[2019-05-24] MEDS: DULERA 100/5 (MOMETASONE/FORMOTEROL) INHALER IH SCH ×2 (09:00→19:39)
--- NOTE | 2019-05-24 09:17 | P.PN ---
Subjective Date of Service: 05/24/19 Primary Care Provider: Dr. Faria Chief Complaint: Shortness of breath Subjective: Other (Patient was agitated last night. Patient require transfer to ICU. Patient appears stable this time. Patient will be on BiPAP.) Physical Examination - Vital Signs Temperature: 98.9 F Blood Pressure: 160/77 Pulse: 77 Respirations: 18 Pulse Ox (%): 96 - Physical Exam General: Alert, Other (Patient agitated) HEENT: Atraumatic Neck: Supple Respiratory: Clear to auscultation bilaterally, Normal air movement Cardiovascular: Normal pulses, Regular rate/rhythm Neurological: Abnormal affect (Increase agitation noted.) - Studies Laboratory Data (last 24 hrs) 05/23/19 16:37: PT 12.7 H, INR 1.08 05/23/19 16:37: WBC 9.2, Hgb 11.1 L, Hct 36.1, Plt Count 365 05/23/19 16:37: Sodium 141, Potassium 3.8, BUN 14, Creatinine 0.97, Glucose 101 , Magnesium 2.2, Total Bilirubin 0.3, AST 17, ALT 20, Alkaline Phosphatase 77 Microbiology Data (last 24 hrs): 05/23/19 16:37 Nasopharnyx Influenza Type A Antigen Screen - Final 05/23/19 16:37 Nasopharnyx Influenza Type B Antigen Screen - Final Medications List Reviewed: Yes Assessment & Plan Discharge Plan: Home Plan to discharge in: Greater than 2 days Physician Review Additional Text: Impression: Shortness of breath secondary to acute on chronic respiratory failure with hypercapnia likely related to COPD exacerbation and acute on chronic diastolic CHF Agitation likely from hypoxia/hypercapnia Hypertension Chronic bilateral lymphedema Morbid obesity Hyperlipidemia Hypothyroidism Suspect obstructive sleep apnea Plan: Shortness of breath secondary to acute on chronic respiratory failure with hypercapnia likely related to COPD exacerbation and acute on chronic diastolic CHF: Patient transferred to ICU due to hypercapnia and agitation. Will provide Haldol as needed for agitation. Patient will be started on BiPAP. Case discussed with pulmonology. Will continue with IV Lasix, fluid restriction and prednisone. Await further recommendations from pulmonology. Will monitor closely. Will change from observation status to inpatient. Anticipate improvement over the next 48-72 hr. Agitation likely from hypoxia/hypercapnia: Continue as above. Patient will be given Haldol for agitation. Hypertension: Continue metoprolol. Will monitor and adjust appropriately. Chronic bilateral lymphedema: Will have wound care evaluate lymphedema. Morbid obesity: Address lifestyle modification education. Hyperlipidemia: Will continue home medication. Hypothyroidism: Continue with home medication. Tsh within normal range. Suspect obstructive sleep apnea: Patient will benefit with sleep study as an outpatient. Time Spent Managing Pts Care (In Minutes): 55
--- NOTE | 2019-05-24 09:24 | RAD REPORT ---
EXAM DESCRIPTION: RAD - Chest Single View - 05/24/2019 9:13 am CLINICAL HISTORY: Follow up CHF Chest pain. COMPARISON: Chest Single View dated 05/23/2019; Chest Single View dated 12/01/2018; Chest Single View dated 09/19/2018; Chest Single View dated 03/22/2017 FINDINGS: Portable technique limits examination quality. Mild improvement is seen in CHF pattern since comparative study. Linear subsegmental atelectasis is p resent in the left lung base. The heart is mildly enlarged in size. No displaced fractures. IMPRESSION: Mild improvement in CHF.
[2019-05-24 10:11] LABS: CKMB Creatine Kinase MB 2.5 ng/mL (0.3-3.6); Troponin I 0.05 ng/mL (0.0-0.045)
[2019-05-24] MEDS: METHYLPREDNISOLONE 40 MG INJ IV SCH ×2 (10:23→16:36)
[2019-05-24] MEDS: ENOXAPARIN 40 MG/0.4 ML SQ SCH (10:23)
[2019-05-24] MEDS: FUROSEMIDE 20 MG/ 2ML VIAL IV SCH ×2 (10:23→16:37)
--- NOTE | 2019-05-24 13:55 | ECHO ---
HEIGHT: 5 ft 6 in WEIGHT: 279 lb 0 oz DATE OF STUDY: 05/24/[address]: Daljit Escobar DO 2-DIMENSIONAL: YES M.MODE: YES DOPPLER: YES COLOR FLOW: YES TDS: YES PORTABLE: YES DEFINITY: BUBBLE STUDY: DIAGNOSIS: EVALUATE FOR CONGESTIVE HEART FAILURE CARDIAC HISTORY: CATHERIZATION: NO SURGERY: NO PROSTHETIC VALVE: NO PACEMAKER: NO MEASUREMENTS (cm) DIASTOLIC (NORMALS) SYSTOLIC (NORMALS) IVSd 1.0 (0.6-1.2) LA Diam 3.2 (1.9-4.0) LVEF 53% LVIDd 4.6 (3.5-5.7) LVIDs 3.4 (2.0-3.5) %FS 27% LVPWd 1.0 (0.6-1.2) Ao Diam 2.6 (2.0-3.7) 2 DIMENSIONAL ASSESSMENT: RIGHT ATRIUM: NORMAL LEFT ATRIUM: NORMAL RIGHT VENTRICLE: NORMAL LEFT VENTRICLE: NORMAL TRICUSPID VALVE: NORMAL MITRAL VALVE: NORMAL PULMONIC VALVE: NORMAL AORTIC VALVE: NORMAL PERICARDIAL EFFUSION: NONE AORTIC ROOT: NORMAL LEFT VENTRICULAR WALL MOTION: NORMAL DOPPLER/COLOR FLOW: MILD MITRAL AND TRICUSPID REGURGITATION. NORMAL RIGHT VENTRICULAR SYSTOLIC PRESSURE. COMMENTS: NORMAL 2-DIMENSIONAL ECHOCARDIOGRAM. MILD MITRAL AND TRICUSPID REGURGITATION. TECHNOLOGIST: SONIA BRYAN
[2019-05-24 18:25] LABS: Blood Gas Oxyhemoglobin 95.5 % (94-97); Blood O2 Saturation 97.6 % (92-98.5)
[2019-05-24] MEDS: GABAPENTIN 300 MG CAP PO SCH (19:39)
[2019-05-24] MEDS: ATORVASTATIN 20 MG TAB PO SCH (19:39)
[2019-05-24] MEDS ORDERED: HOME MED 1 EA UNK (Simvastatin [Simvastatin] 40 MG) PO SCH (21:00)
[2019-05-25] MEDS: METHYLPREDNISOLONE 40 MG INJ IV SCH ×2 (00:41→09:18)
[2019-05-25] MEDS: LEVOTHYROXINE SOD 0.05 MG TABLET PO SCH (05:34)
[2019-05-25] MEDS: METOPROLOL TAR 25 MG TAB PO SCH ×2 (05:34→17:03)
[2019-05-25 07:35] LABS: Absolute Lymphocytes (CBC) 0.7 K/uL (0.7-4.9); Basophils % 0.5 % (0-1.3); Hematocrit 35.6 % (36.0-45.0); Lymphocytes % 8.7 % (15.3-44.8); MPV 8.4 fL (7.6-11.3); RBC Red Blood Cell Count 4.19 M/uL (3.86-4.86)
--- NOTE | 2019-05-25 08:06 | RAD REPORT ---
EXAM DESCRIPTION: RAD - Chest Single View - 05/25/2019 7:58 am CLINICAL HISTORY: eval CHF, shortness of breath COMPARISON: Portable May 23 TECHNIQUE: AP portable chest image was obtained 05/25/2019 7:58 am . FINDINGS: Lung volumes remain low. No new focal lung parenchymal mass or infiltrate. Interstitial pa ttern is similar to comparison. Heart size and vasculature are stable. Large body habitus and portabl e shallow inspiration exam limit the study. Lung base atelectasis present. No measurable pleural effu nayeli and no pneumothorax. No acute bony abnormality seen. No acute aortic findings suspected. IMPRESSION: Stable portable chest examination from prior day imaging.
[2019-05-25 08:08] LABS: Albumin 2.7 g/dL (3.4-5.0); Bilirubin Total 0.3 mg/dL (0.2-1.0); Potassium 4.3 mmol/L (3.5-5.1); Protein, Total 7.2 g/dL (6.4-8.2)
[2019-05-25] MEDS: DULERA 100/5 (MOMETASONE/FORMOTEROL) INHALER IH SCH ×2 (09:18→21:37)
[2019-05-25] MEDS: ENOXAPARIN 40 MG/0.4 ML SQ SCH (09:18)
[2019-05-25] MEDS: FUROSEMIDE 20 MG/ 2ML VIAL IV SCH ×2 (09:18→17:03)
[2019-05-25] MEDS: SPIRONOLACTONE 25 MG TABLET PO SCH ×2 (09:19→21:40)
--- NOTE | 2019-05-25 13:06 | P.PN ---
Subjective Date of Service: 05/25/19 Primary Care Provider: Dr. Faria Chief Complaint: Respiratory failure Subjective: Improving (Patient is doing much better more alert responsive cooperative been sick for about a week has a history of asthma with obstructive airways disease patient has improved) Review of Systems General: Weakness Respiratory: Cough, Shortness of Breath Physical Examination - Vital Signs Temperature: 98 F Blood Pressure: 132/69 Pulse: 84 Respirations: 24 Pulse Ox (%): 94 - Physical Exam General: Alert, Oriented x3 Respiratory: Expiratory wheezes Cardiovascular: Regular rate/rhythm, Edema - Studies Medications List Reviewed: Yes Assessment & Plan - Problems (Diagnosis) (1) Respiratory failure Current Visit: Yes Status: Acute Plan: Patient is doing much better more common recheck ABGs she denies symptoms of sleep apnea has obstructive asthma never smoked patient is compliant with the bronchodilators oxygenation satisfactory transfer to the floor continue with steroids will check if she qualifies for a noninvasive ventilator Qualifiers: Respiratory failure complication: hypoxia and hypercapnia (2) COPD exacerbation Onset Date: 03/23/17 Current Visit: No Status: Acute Plan: Patient has severe COPD the with hypoxemia hypercapnia and the check her ABGs may qualify for noninvasive vent at home denies any symptoms of sleep apnea
--- NOTE | 2019-05-25 14:06 | P.PN ---
Subjective Date of Service: 05/25/19 Primary Care Provider: Dr. Faria Chief Complaint: Respiratory failure Subjective: Other (Patient has improved.) Physical Examination - Vital Signs Temperature: 98 F Blood Pressure: 132/69 Pulse: 84 Respirations: 24 Pulse Ox (%): 94 - Physical Exam General: Alert, Cooperative HEENT: Atraumatic Neck: Supple Respiratory: Expiratory wheezes (Minimal wheezing but good air movement bilateral) Cardiovascular: Normal pulses, Regular rate/rhythm Gastrointestinal: Normal bowel sounds, Soft and benign, Non-distended Integumentary: Other (Lower extremity lymphedema noted.) Neurological: Normal speech, Normal strength at 5/5 x4 extr, Normal tone, Normal affect - Studies Medications List Reviewed: Yes Assessment & Plan Discharge Plan: Other (longterm facility) Plan to discharge in: 24 Hours Physician Review Additional Text: Impression: Shortness of breath secondary to acute on chronic respiratory failure with hypercapnia likely related to COPD exacerbation and acute on chronic diastolic CHF Agitation likely from hypoxia/hypercapnia Hypertension Chronic bilateral lymphedema Morbid obesity Hyperlipidemia Hypothyroidism Suspect obstructive sleep apnea Plan: Shortness of breath secondary to acute on chronic respiratory failure with hypercapnia/hypoxia likely related to COPD exacerbation and acute on chronic diastolic CHF complicated with suspected underlying obstructive sleep apnea: Patient has done well. Case discussed with pulmonology. Patient likely has underlying obstructive sleep apnea. Will check to see if patient qualifies for noninvasive ventilator. Will transfer patient to the floor clear E Ed what physical therapy assess ambulation. Social work to discuss with patient about the possibility of skilled placement prior to discharge. Anticipate improvement over the next 48 hr for possible discharge to skilled placement. Agitation likely from hypoxia/hypercapnia: Continue as above. Patient will be given Haldol for agitation. Hypertension: Continue metoprolol. Will monitor and adjust appropriately. Chronic bilateral lymphedema: Will have wound care evaluate lymphedema. Morbid obesity: Address lifestyle modification education. Hyperlipidemia: Will continue home medication. Hypothyroidism: Continue with home medication. Tsh within normal range. Suspect obstructive sleep apnea: Pulmonology suspects apnea. Patient may qualify for noninvasive ventilator Time Spent Managing Pts Care (In Minutes): 55
[2019-05-25 21:31] LABS: Arterial Blood Carboxyhemoglob 0.8 % (0-1.5); Blood Gas Oxyhemoglobin 89.8 % (94-97); Blood O2 Saturation 91.5 % (92-98.5)
[2019-05-25] MEDS: ATORVASTATIN 20 MG TAB PO SCH (21:39)
[2019-05-25] MEDS: predniSONE 20 MG TAB PO SCH (21:40)
[2019-05-25] MEDS: METOPROLOL TAR 50 MG TAB PO SCH (21:40)
[2019-05-25] MEDS: GABAPENTIN 300 MG CAP PO SCH (21:40)
[2019-05-26 06:08] VITALS: BMI 44.0
[2019-05-26] MEDS: LEVOTHYROXINE SOD 0.05 MG TABLET PO SCH (06:42)
[2019-05-26] MEDS ORDERED: FUROSEMIDE 40 MG TABLET PO SCH (09:00)
[2019-05-26] MEDS: METOPROLOL TAR 50 MG TAB PO SCH (09:42)
[2019-05-26] MEDS: predniSONE 20 MG TAB PO SCH (09:42)
[2019-05-26] MEDS: DULERA 100/5 (MOMETASONE/FORMOTEROL) INHALER IH SCH (09:43)
[2019-05-26] MEDS: ENOXAPARIN 40 MG/0.4 ML SQ SCH (09:43)
[2019-05-26] MEDS: SPIRONOLACTONE 25 MG TABLET PO SCH (09:43)
--- NOTE | 2019-05-26 11:16 | P.PN ---
Subjective Date of Service: 05/26/19 Primary Care Provider: Dr. Faria Chief Complaint: Respiratory failure Subjective: Improving, Doing well Physical Examination - Vital Signs Temperature: 98.2 F Blood Pressure: 156/76 Pulse: 73 Respirations: 20 Pulse Ox (%): 91 - Physical Exam General: Alert, In no apparent distress, Oriented x3, Cooperative HEENT: Atraumatic Neck: Supple Respiratory: Clear to auscultation bilaterally, Normal air movement Cardiovascular: Normal pulses, Regular rate/rhythm Gastrointestinal: Normal bowel sounds, Soft and benign, Non-distended Integumentary: Other (Chronic lymphedema to the lower extremity.) Neurological: Normal speech, Normal strength at 5/5 x4 extr, Normal tone, Normal affect - Studies Medications List Reviewed: Yes Assessment & Plan Discharge Plan: Home Plan to discharge in: 24 Hours Physician Review Additional Text: Impression: Shortness of breath secondary to acute on chronic respiratory failure with hypercapnia likely related to COPD exacerbation and acute on chronic diastolic CHF Agitation likely from hypoxia/hypercapnia Hypertension Chronic bilateral lymphedema Morbid obesity Hyperlipidemia Hypothyroidism Suspect obstructive sleep apnea Paroxysmally atrial fibrillation likely from hypoxia Plan: Shortness of breath secondary to acute on chronic respiratory failure with hypercapnia/hypoxia likely related to COPD exacerbation and acute on chronic diastolic CHF complicated with suspected underlying obstructive sleep apnea: Case discussed with pulmonology. Patient will need noninvasive ventilator. Will help arrange. Patient will also need home oxygen and home health. Will discuss further with social work. Patient has improved. Anticipate improvement over the next 24 hr. Patient can go home once arrangements for an noninvasive ventilator has been arranged. Agitation likely from hypoxia/hypercapnia: Continue as above. Patient will be given Haldol for agitation. Hypertension: Metoprolol was increased yesterday due to paroxysmally atrial fibrillation. Will monitor and adjust appropriately. Chronic bilateral lymphedema: Will have wound care evaluate lymphedema. Morbid obesity: Address lifestyle modification education. Hyperlipidemia: Will continue home medication. Hypothyroidism: Continue with home medication. Tsh within normal range. Suspect obstructive sleep apnea: Pulmonology suspects apnea. Patient may qualify for noninvasive ventilator Paroxysmally atrial fibrillation: This occurred yesterday likely from hypoxia. Will increase metoprolol. No need for chronic anti coagulation therapy. Will discuss with pulmonology and Cardiology. Time Spent Managing Pts Care (In Minutes): 55
--- NOTE | 2019-05-26 13:16 | P.PN ---
Subjective Date of Service: 05/30/19 Primary Care Provider: Dr. Faria Chief Complaint: Respiratory failure Subjective: Improving (Patient is doing better she is more alert responsive little agitated wants to go home) Review of Systems General: Weakness Respiratory: Shortness of Breath Physical Examination - Vital Signs Temperature: 97.5 F Blood Pressure: 179/72 Pulse: 67 Respirations: 18 Pulse Ox (%): 93 - Physical Exam General: Alert, In no apparent distress, Oriented x3 Cardiovascular: No edema, Regular rate/rhythm - Studies Medications List Reviewed: Yes Assessment & Plan - Problems (Diagnosis) (1) Respiratory failure Status: Acute Plan: Patient has chronic respiratory failure I suspect that she has 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
--- NOTE | 2019-05-26 13:34 | P.DS ---
Admission Date: 05/24/19 Discharge Date: 05/26/19 Primary Care Provider: Dr. Faria; Pulmonary - Dr. Mcneil Disposition: DC HOME/HOME HEALTH CARE Discharge Condition: GOOD Reason for Admission: Respiratory failure Consultations: Pulmonary-Dr. Mcneil Procedures: Venous doppler: FINDINGS: Normal compressibility, flow augmentation, phasic flow and spontaneous flow is identified in both the left and right lower extremity deep venous systems. IMPRESSION: No sonographic evidence of left or right lower extremity deep venous thrombosis. ECHO: Ejection fraction 53% LEFT VENTRICULAR WALL MOTION: NORMAL DOPPLER/COLOR FLOW: MILD MITRAL AND TRICUSPID REGURGITATION. NORMAL RIGHT VENTRICULAR SYSTOLIC PRESSURE. COMMENTS: NORMAL 2-DIMENSIONAL ECHOCARDIOGRAM. MILD MITRAL AND TRICUSPID REGURGITATION. CXR: FINDINGS: Lung volumes remain low. No new focal lung parenchymal mass or infiltrate. Interstitial pattern is similar to comparison. Heart size and vasculature are stable. Large body habitus and portable shallow inspiration exam limit the study. Lung base atelectasis present. No measurable pleural effusion and no pneumothorax. No acute bony abnormality seen. No acute aortic findings suspected. IMPRESSION: Stable portable chest examination from prior day imaging. Medical Problem List: Shortness of breath secondary to acute on chronic respiratory failure with hypercapnia/hypoxia likely related to COPD exacerbation and acute on chronic diastolic CHF Agitation likely from hypoxia/hypercapnia Hypertension Chronic bilateral lymphedema Morbid obesity Hyperlipidemia Hypothyroidism Suspect obstructive sleep apnea Paroxysmally atrial fibrillation likely from hypoxia Brief History of Present Illness: 78-year-old female with history of CHF, lymphedema, hypertension and COPD. Patient has been reporting increasing shortness of breath over the last several days. She reports some mild cough and congestion. She denies any fever, chills , nausea or vomiting. Patient has been using her nebulized medication to help with her shortness of breath. Patient does take Lasix but is not on a fluid restriction. Patient reports no recent travel. No fever noted. She was not improving therefore she came to the ER for further evaluation. In the ER patient evaluated. Chest x-ray shows mild CHF pattern. White count 9.2, hemoglobin 11. Sodium 141, potassium 3.8 %period% creatinine 0.97 with a GFR 56. Patient admitted for further evaluation. Patient given IV Lasix in the emergency room. When I saw the patient in the ER, she appeared stable. She had not appear in respiratory distress. She did not appear septic. Prior echocardiogram in 2013 shows EF of 86%. Hospital Course: Patient presented with shortness of breath secondary to acute on chronic respiratory failure with hypercapnia and hypoxia. This was were likely related to COPD exacerbation and acute on chronic diastolic CHF. Patient also likely has obstructive sleep apnea. Patient did well then the course of her stay. Her condition improved. Patient was seen by pulmonology. Pulmonology recommended that the patient getting noninvasive ventilator. Patient refused. Patient stable at this time with oxygen. Therefore patient will continue with home oxygen to maintain sats above 93%. Patient will continue with prednisone 20 mg 1 pill twice daily for 2 weeks. Patient will continue with Trelegy inhaler 1 puff daily. Recommendations for the patient follow up with pulmonology in 1 week. Pulmonology will set up patient for sleep study for obstructive sleep apnea. Patient will continue with a 1500 cc per day fluid restriction and low-salt diet. Patient to monitor weight daily. At discharge patient will continue with Lasix 40 mg daily. Recommend to follow up with her PCP in 1 week to follow up this hospitalization. Further adjustment can be done by her PCP pre Patient with hypertension. Medications have been adjusted. Metoprolol was increased due to paroxysmally atrial fibrillation. Patient in sinus rhythm now. Episode only occurred once. No need for chronic anti coagulation therapy at this time. At discharge patient will continue with metoprolol 50 mg 1 pill twice daily. Patient with hyperlipidemia. Patient continue with her medication. Patient with hypothyroidism. Patient will continue with her medication. Patient with chronic bilateral lymphedema. Patient will continue with wrappings daily. These will continue with Lasix 40 mg daily. Vital Signs/Physical Exam: Temp Pulse Resp BP Pulse Ox 97.5 F 67 18 179/72 H 93 05/26/19 13:16 05/26/19 13:16 05/26/19 13:16 05/26/19 13:16 05/26/19 13:16 General: Alert, In no apparent distress, Oriented x3, Cooperative HEENT: Atraumatic Neck: Supple Respiratory: Clear to auscultation bilaterally, Normal air movement Cardiovascular: Normal pulses, Regular rate/rhythm Gastrointestinal: Normal bowel sounds, Soft and benign, Non-distended, No rebound, No guarding Musculoskeletal: No tenderness, No warmth Integumentary: No erythema, Tenderness/swelling (Chronic lymphedema stable.) Laboratory Data at Discharge: WBC 8.4 K/uL (4.3-10.9) 05/25/19 07:19 Hgb 10.8 g/dL (12.0-15.0) L 05/25/19 07:19 Hct 35.6 % (36.0-45.0) L 05/25/19 07:19 Plt Count 373 K/uL (152-406) 05/25/19 07:19 PT 12.7 SECONDS (9.5-12.5) H 05/23/19 16:37 INR 1.08 05/23/19 16:37 Sodium 140 mmol/L (136-145) 05/25/19 07:19 Potassium 4.3 mmol/L (3.5-5.1) 05/25/19 07:19 BUN 18 mg/dL (7-18) 05/25/19 07:19 Creatinine 0.85 mg/dL (0.55-1.3) 05/25/19 07:19 Glucose 147 mg/dL (74-106) H 05/25/19 07:19 Magnesium 2.1 mg/dL (1.8-2.4) 05/24/19 05:30 Total Bilirubin 0.3 mg/dL (0.2-1.0) 05/25/19 07:19 AST 10 U/L (15-37) L 05/25/19 07:19 ALT 17 U/L (12-78) 05/25/19 07:19 Alkaline Phosphatase 68 U/L (45-117) 05/25/19 07:19 Troponin I 0.05 ng/mL (0.0-0.045) H 05/24/19 09:35 Triglycerides 56 mg/dL (<150) 05/24/19 05:30 Cholesterol 159 mg/dL (<200) 05/24/19 05:30 HDL Cholesterol 52 mg/dL (40-60) 05/24/19 05:30 Cholesterol/HDL Ratio 3.06 05/24/19 05:30 Home Medications: Amitriptyline [Elavil*] 25 mg PO BEDTIME 12/02/18 Furosemide [Lasix*] 40 mg PO DAILY 12/02/18 Gabapentin 600 mg PO DAILY 12/02/18 Levothyroxine Sodium 50 mcg PO DAILY 12/02/18 Simvastatin 40 mg PO BEDTIME 12/02/18 Fluticasone/Umeclidin/Vilanter [Trelegy Ellipta 100-62.5-25] 1 each IH DAILY #1 blst.w.dev 05/26/19 Metoprolol Tartrate [Lopressor*] 50 mg PO BID #60 tab 05/26/19 predniSONE [Deltasone*] 10 mg PO BID #28 tab 05/26/19 New Medications: Fluticasone/Umeclidin/Vilanter [Trelegy Ellipta 100-62.5-25] 1 each IH DAILY #1 blst.w.dev Metoprolol Tartrate [Lopressor*] 50 mg PO BID #60 tab predniSONE [Deltasone*] 10 mg PO BID #28 tab Patient Discharge Instructions: 1. Recommend follow up with PCP in 1 week to follow up hospitalization. 2. Patient presented with shortness of breath secondary to acute on chronic respiratory failure with hypercapnia and hypoxia. This was were likely related to COPD exacerbation and acute on chronic diastolic CHF. Patient also likely has obstructive sleep apnea. Patient did well then the course of her stay. Her condition improved. Patient was seen by pulmonology. Pulmonology recommended that the patient getting noninvasive ventilator. Patient refused. Patient stable at this time with oxygen. Therefore patient will continue with home oxygen to maintain sats above 93%. Patient will continue with prednisone 20 mg 1 pill twice daily for 2 weeks. Patient will continue with Trelegy inhaler 1 puff daily. Recommendations for the patient follow up with pulmonology in 1 week. Pulmonology will set up patient for sleep study for obstructive sleep apnea. Patient will continue with a 1500 cc per day fluid restriction and low-salt diet. Patient to monitor weight daily. At discharge patient will continue with Lasix 40 mg daily. Recommend to follow up with her PCP in 1 week to follow up this hospitalization. Further adjustment can be done by her PCP. 3. Patient with hypertension. Medications have been adjusted. Metoprolol was increased due to paroxysmally atrial fibrillation. Patient in sinus rhythm now. Episode only occurred once. No need for chronic anti coagulation therapy at this time. At discharge patient will continue with metoprolol 50 mg 1 pill twice daily. 4. Patient with hyperlipidemia. Patient continue with her medication. 5. Patient with hypothyroidism. Patient will continue with her medication. 6. Patient with chronic bilateral lymphedema. Patient will continue with wrappings daily. These will continue with Lasix 40 mg daily. Diet: AHA Activity: Fall precautions Time spent managing pt's care (in minutes): 55
[2019-05-26 14:06] VITALS: O2SAT 92
[2019-05-30 11:52] VITALS: BP 179/72; TEMP 97.5
== END 2019-05-26 17:22 | disposition home health service (06) | DRG 291 ==
LOC: ER 15:39 → ERHOLD 18:00 → 4TH 20:10 → 3RD-ICU 05-24 06:24 → OBSVTOIN 05-24 12:35 → 4TH 05-25 14:10
PROVIDERS: ADMIT Family Medicine; ATTEND Family Medicine
PROC: 5A09457 Assistance with Respiratory Ventilation, 24-96 Consecutive Hours, Continuous Positive Airway Pressure (ICD-10-PCS; principal; 2019-05-25)
DX: I11.0 Hypertensive heart disease with heart failure (principal); J96.21 Acute and chronic respiratory failure with hypoxia; J96.22 Acute and chronic respiratory failure with hypercapnia; J44.1 Chronic obstructive pulmonary disease with (acute) exacerbation; Z68.41 Body mass index [BMI] 40.0-44.9, adult; I50.33 Acute on chronic diastolic (congestive) heart failure; E66.01 Morbid (severe) obesity due to excess calories; E78.5 Hyperlipidemia, unspecified; E03.9 Hypothyroidism, unspecified; G47.33 Obstructive sleep apnea (adult) (pediatric); I89.0 Lymphedema, not elsewhere classified; I48.0 Paroxysmal atrial fibrillation; R45.1 Restlessness and agitation
CPT/HCPCS: 36415; 71045; 80048; 80053; 80061; 80076; 81003; 81015; 82550; 82553; 82805; 83735; 83880; 84439; 84443; 84484; 85025; 85610; 87804; 93005; 93306; 93970; 94640; 94660; 94760; 96374; 96375; 99285; G0378; J1630; J1650; J1940; J2920; J2930; J7512; J7606

== ENCOUNTER 2019-11-15 19:43 | Inpatient (IN) | payer OTHER ==
--- OUTSIDE RECORDS SUMMARY | 2019-11-15 19:46 | XMS REPORT | Continuity of Care Document ---
:1940 Author Organization [facility] t Address [address] [place] [id number] Care Team Providers Name Role Phone Unavailable Unavailable Unavailable Problems This patient has no known problems. Allergies, Adverse Reactions, Alerts This patient has no known allergies or adverse reactions. Medications This patient has no known medications. Procedures This patient has no known procedures. Results This patient has no known results.
--- NOTE | 2019-11-15 21:13 | RAD REPORT ---
EXAM DESCRIPTION: RAD - Chest Single View - 11/15/2019 9:00 pm CLINICAL HISTORY: FEVER Chest pain. COMPARISON: Chest Single View dated 05/25/2019; Chest Single View dated 05/24/2019; Chest Single View dated 05/23/2019; Chest Single View dated 12/01/2018 FINDINGS: Portable technique limits examination quality. Mild interstitial pulmonary edema. The heart is moderately enlarged. No displaced fractures. IMPRESSION: Mild CHF.
[2019-11-15 21:25] LABS: Absolute Lymphocytes (CBC) 0.7 K/uL (0.7-4.9); Hematocrit 35.3 % (36.0-45.0); Lymphocytes % 4.5 % (15.3-44.8); MPV 8.5 fL (7.6-11.3); RBC Red Blood Cell Count 4.08 M/uL (3.86-4.86)
[2019-11-15] MEDS ORDERED: NA CHLORIDE 0.9% 1,000 ML ONE (21:27)
[2019-11-15 21:29] LABS: Protime INR 1.14
[2019-11-15 21:48] LABS: Albumin 2.6 g/dL (3.4-5.0); Bilirubin Direct 0.1 mg/dL (0-0.2); Bilirubin Total 0.5 mg/dL (0.2-1.0); CKMB Creatine Kinase MB 1.9 ng/mL (0.3-3.6); Potassium 4.5 mmol/L (3.5-5.1); Protein, Total 8.5 g/dL (6.4-8.2); Troponin (Emerg Dept Use Only) 0.02 ng/mL (0.0-0.045)
[2019-11-15 22:37] LABS: Blood Morphology Comment NOT SEEN (NOT SEEN); Platelet Estimate ADEQ; White Blood Cell Scan OK (OK)
[2019-11-15] MEDS ORDERED: FUROSEMIDE 40 MG/4 ML VIAL ONE (22:48)
[2019-11-15] MEDS ORDERED: CLINDAMYCIN 900MG/D5W 900 MG/50 ML IVPB IV ONE (22:48)
--- NOTE | 2019-11-15 23:26 | ER ---
Nurse's Notes [facility] Name: Rehana Yusuf Age: 79 yrs Sex: Female : 1940 Arrival Date: 11/15/2019 Time: 19:52 Bed 18 Private MD: Diagnosis: CHF Exacerbation;Lower Extremity Cellulitis Presentation: 11/14 19:52 Chief complaint: EMS states: "Patient states she has been dealing with this for the last few years, but the last couple of months they have been worse, the last few days she has been in a lot of pain and could not get in her truck to come to the hospital.". 19:52 Coronavirus screen: cough unrelated to allergies, fever, shortness of breath, Client vc presents with at least one sign or symptom that may indicate coronavirus-19. Standard/surgical mask placed on the client. Provider contacted for isolation considerations. Ebola Screen: No symptoms or risks identified at this time. Initial Sepsis Screen: Does the patient meet any 2 criteria? RR > 20 per min. HR > 90 bpm. Yes Does the patient have a suspected source of infection? Yes: Skin breakdown/wound. Risk Assessment: Do you want to hurt yourself or someone else? Patient reports no desire to harm self or others. Onset of symptoms is unknown. 19:52 Method Of Arrival: EMS: [facility] 19:52 Acuity: TJ 3 19:52 Care prior to arrival: IV initiated. 20 GA, in the right antecubital area, Glucose vc check: 173 Oxygen administered. via nasal cannula, pulse 125, 89% on room air, placed on 4L nc. Triage Assessment: 20:00 General: Appears in no apparent distress. uncomfortable, obese, unkempt, Behavior is vc calm, cooperative, appropriate for age. Pain: Complains of pain in left leg and right leg Pain does not radiate. Pain currently is 2 out of 10 on a pain scale. at worst was 10 out of 10 on a pain scale. Quality of pain is described as pressure, Pain began 2-3 days ago. Is continuous, Alleviated by rest, Aggravated by weight bearing, Noted to be grimacing. Historical: - Allergies: 20:49 Celebrex; vc - PMHx: 20:49 Hypertension; Hypothyroidism; Asthma; High Cholesterol; vc - Immunization history:: Adult Immunizations up to date. - Social history:: Smoking status: Patient denies any tobacco usage or history of. Screenin:00 Abuse screen: Denies threats or abuse. Nutritional screening: No deficits noted. vc Tuberculosis screening: No symptoms or risk factors identified. Fall Risk None identified. Assessment: 20:00 General: Appears in no apparent distress. uncomfortable, obese, unkempt. vc 20:00 Pain: Complains of pain in left leg and right leg Pain does not radiate. Pain currently vc is 2 out of 10 on a pain scale. at worst was 10 out of 10 on a pain scale. Quality of pain is described as pressure, squeezing, Pain began 2-3 days ago. Is episodic, Alleviated by rest. Neuro: Level of Consciousness is awake, alert, obeys commands, Oriented to person, place, time, situation, Appropriate for age. Cardiovascular: Capillary refill < 3 seconds Patient's skin is warm and dry. Respiratory: Airway is patent Respiratory effort is even, unlabored, Respiratory pattern is regular, symmetrical, tachypnea. GI: No signs and/or symptoms were reported involving the gastrointestinal system. : No signs and/or symptoms were reported regarding the genitourinary system. Derm: Wound noted right leg and left leg. Musculoskeletal: Swelling present in left leg and right leg. 21:00 Reassessment: Patient appears in no apparent distress at this time. Patient and/or vc family updated on plan of care and expected duration. Pain level reassessed. Patient states symptoms have not improved. 22:00 Reassessment: Patient appears in no apparent distress at this time. Patient and/or vc family updated on plan of care and expected duration. Pain level reassessed. Patient states symptoms have not improved. 23:00 Reassessment: Patient appears in no apparent distress at this time. Patient and/or vc family updated on plan of care and expected duration. Pain level reassessed. Patient states symptoms have not improved. 11/15 00:00 Reassessment: Patient appears in no apparent distress at this time. Patient and/or vc family updated on plan of care and expected duration. Pain level reassessed. Patient states symptoms have not improved. 01:00 Reassessment: Patient appears in no apparent distress at this time. Patient and/or vc family updated on plan of care and expected duration. Pain level reassessed. Patient states symptoms have not improved. Neuro: Level of Consciousness is awake, alert, obeys commands, Oriented to person, place, time, situation, Appropriate for age. Respiratory: Respiratory effort is even, unlabored, Respiratory pattern is regular, symmetrical. Vital Signs: 11/14 19:52 Pulse 97; Resp 24; Temp 99.1(O); Pulse Ox 97% on 4 lpm NC; Weight 113.4 kg; Height 5 vc ft. 6 in. (167.64 cm); Pain 2/10; 22:00 BP 104 / 43; Pulse 97; Resp 17; Pulse Ox 97% on R/A; vc 11/15 00:00 BP 101 / 56; Pulse 94; Resp 17; Pulse Ox 100% on 4 lpm NC; vc 11/14 19:52 Body Mass Index 40.35 (113.40 kg, 167.64 cm) vc ED Course: 11/14 19:52 Patient arrived in ED. vc 19:53 Adan Varela MD is Attending Physician. [facility] 20:00 Arm band placed on. vc 20:00 Patient has correct armband on for positive identification. Bed in low position. Call vc light in reach. Side rails up X2. engrosser on. Pulse ox on. NIBP on. 20:33 Janiya Ornelas RN is Primary Nurse. vc 20:48 Triage completed. vc 21:00 Chest Single View XRAY In Process Unspecified. EDMS 21:42 US Extremity Venous W Compression Leonardo In Process Unspecified. EDMS 23:25 Felipe Shaw MD is Hospitalizing Provider. [facility] 23:50 Gilmore cath inserted, using sterile technique, 18 Fr., by md, balloon inflated, to vc gravity drainage, urine specimen collected. 11/15 01:05 No provider procedures requiring assistance completed. Patient admitted, IV remains in vc place. Administered Medications: 11/14 21:38 Drug: NS 0.9% (30 ml/kg) 30 ml/kg Route: IV; Rate: bolus; Site: right antecubital; vc 22:46 Drug: Lasix 40 mg Route: IVP; Site: right antecubital; vc 22:46 Drug: Clindamycin 900 mg Route: IVPB; Infused Over: 30 mins; Site: right antecubital; vc Outcome: 23:26 Decision to Hospitalize by Provider. 7 11/15 01:06 Admitted to Tele accompanied by tech, via stretcher, room 403, with oxygen, with chart, vc Report called to LOY Becerril Condition: good Instructed on the need for admit, Demonstrated understanding of instructions. 01:06 Patient left the ED. vc Signatures: Dispatcher [employer] Janiya Garsia RN RN vc Holmes, Maurice, MD MD [id number]
[2019-11-15] MEDS ORDERED: LIDOCAINE JELLY 2%- 5 ML TUBE ONE (23:27)
--- NOTE | 2019-11-15 23:27 | EDPHYS ---
Physician Documentation [facility] Name: Rehana Yusuf Age: 79 yrs Sex: Female : 1940 Arrival Date: 11/15/2019 Time: 19:52 Bed 18 Private MD: ED Physician Adan Varela HPI: 11/14 20:49 This 79 yrs old Female presents to ER via EMS with complaints of Leg pain and mh7 swelling. 20:49 The patient presents with pain, that is acute, swelling. The complaints affect the mh7 right leg and left leg. Context: The problem was sustained at home, resulted from an unknown cause, the patient can partially bear weight, uses a walker. Onset: The symptoms/episode began/occurred 3 day(s) ago. Modifying factors: The symptoms are alleviated by nothing. the symptoms are aggravated by weight bearing. Associated signs and symptoms: Pertinent positives: fever, swelling, Redness. Treatment prior to arrival includes: no previous treatment. Severity of symptoms: At their worst the symptoms were moderate, yesterday, in the emergency department the symptoms are unchanged. Patient reports history swelling to both legs for a year but worse over the past few days. She has also had redness, pain, and fever. She denies any injuries, chest pain, abdominal pain, SOB, cough, nausea, vomiting, recent travel, or sick contacts.. Historical: - Allergies: 20:49 Celebrex; vc - PMHx: 20:49 Hypertension; Hypothyroidism; Asthma; High Cholesterol; vc - Immunization history:: Adult Immunizations up to date. - Social history:: Smoking status: Patient denies any tobacco usage or history of. ROS: 20:49 Eyes: Negative for injury, pain, redness, and discharge, ENT: Negative for injury, mh7 pain, and discharge, Neck: Negative for injury, pain, and swelling, Cardiovascular: Negative for chest pain, palpitations, and edema, Respiratory: Negative for shortness of breath, cough, wheezing, and pleuritic chest pain, Abdomen/GI: Negative for abdominal pain, nausea, vomiting, diarrhea, and constipation, Back: Negative for injury and pain, : Negative for injury, bleeding, discharge, and swelling, Neuro: Negative for headache, weakness, numbness, tingling, and seizure, Psych: Negative for depression, anxiety, suicide ideation, homicidal ideation, and hallucinations, Allergy/Immunology: Negative for hives, rash, and allergies, Endocrine: Negative for neck swelling, polydipsia, polyuria, polyphagia, and marked weight changes, Hematologic/Lymphatic: Negative for swollen nodes, abnormal bleeding, and unusual bruising. Exam: 20:49 Head/Face: Normocephalic, atraumatic. Eyes: Pupils equal round and reactive to light, mh7 extra-ocular motions intact. Lids and lashes normal. Conjunctiva and sclera are non-icteric and not injected. Cornea within normal limits. Periorbital areas with no swelling, redness, or edema. Neck: Trachea midline, no thyromegaly or masses palpated, and no cervical lymphadenopathy. Supple, full range of motion without nuchal rigidity, or vertebral point tenderness. No Meningismus. Chest/axilla: Normal chest wall appearance and motion. Nontender with no deformity. No lesions are appreciated. Cardiovascular: Regular rate and rhythm with a normal S1 and S2. No gallops, murmurs, or rubs. Normal PMI, no JVD. No pulse deficits. 20:49 Abdomen/GI: Soft, non-tender, with normal bowel sounds. No distension or tympany. No guarding or rebound. No evidence of tenderness throughout. Back: No spinal tenderness. No costovertebral tenderness. Full range of motion. 20:49 Neuro: Awake and alert, GCS 15, oriented to person, place, time, and situation. Cranial nerves II-XII grossly intact. Motor strength 5/5 in all extremities. Sensory grossly intact. Cerebellar exam normal. Normal gait. Psych: Awake, alert, with orientation to person, place and time. Behavior, mood, and affect are within normal limits. 20:49 Constitutional: The patient appears in no acute distress, alert, awake, uncomfortable. 20:49 Respiratory: the patient does not display signs of respiratory distress, Respirations: prolonged exhalation, that is mild, Breath sounds: wheezing: expiratory that is mild, is heard diffusely, Respiratory rate: 24 20:49 Musculoskeletal/extremity: Extremities: noted in the right leg and left leg: erythema, pain, swelling, tenderness, ROM: intact in all extremities, Circulation is intact in all extremities. Sensation intact. Compartment Syndrome exam of affected extremity: is normal. no numbness, no tingling, no sensation deficit, no palor, no weak pulses, Joints: All joints appear normal with full range of motion. Weight bearing: Tendon exam: specific tendon testing normal through active and passive range of motion DVT Exam: negative Homans' sign noted on exam, no appreciated bluish discoloration, pain, swelling, tenderness, erythema, increased warmth, Calves: have equal circumference, are tender. 20:49 Skin: cellulitis, that is moderate, on the right leg and left leg. 22:33 ECG was reviewed by the Attending Physician. [facility] Vital Signs: 19:52 Pulse 97; Resp 24; Temp 99.1(O); Pulse Ox 97% on 4 lpm NC; Weight 113.4 kg; Height 5 vc ft. 6 in. (167.64 cm); Pain 2/10; 22:00 BP 104 / 43; Pulse 97; Resp 17; Pulse Ox 97% on R/A; vc 11/15 00:00 BP 101 / 56; Pulse 94; Resp 17; Pulse Ox 100% on 4 lpm NC; vc 11/14 19:52 Body Mass Index 40.35 (113.40 kg, 167.64 cm) vc MDM: 11/14 20:28 Patient medically screened. [facility] 23:16 Differential diagnosis: cellulitis, DVT, pedal edema, CHF exacerbation. Data reviewed: [facility] vital signs, nurses notes, old medical records, lab test result(s), cardiac enzymes, CBC, electrolytes, urinalysis, EKG, radiologic studies, plain films, ultrasound. Data interpreted: Pulse oximetry: on 2L(s) per nasal canula, is 97 %. Interpretation: acceptable. Counseling: I had a detailed discussion with the patient and/or guardian regarding: the historical points, exam findings, and any diagnostic results supporting the discharge/admit diagnosis, lab results, radiology results, the need for further work-up and treatment in the hospital. Response to treatment: the patient's symptoms have markedly improved after treatment. 11/14 20:29 Order name: Amylase, Serum; Complete Time: 21:51 [facility] 11/14 20:29 Order name: Basic Metabolic Panel; Complete Time: 21:51 [facility] 11/14 20:29 Order name: Blood Culture Adult (2) [facility] 11/14 20:29 Order name: CBC with Diff; Complete Time: 22:48 [facility] 11/14 20:29 Order name: Ckmb; Complete Time: 21:51 [facility] 11/14 20:29 Order name: CPK; Complete Time: 21:51 [facility] 11/14 20:29 Order name: Lactate; Complete Time: 22:31 [facility] 11/14 20:29 Order name: LFT's; Complete Time: 21:51 [facility] 11/14 20:29 Order name: Lipase; Complete Time: 21:51 [facility] 11/14 20:29 Order name: Procalcitonin; Complete Time: 22:31 [facility] 11/14 20:29 Order name: Protime (+inr); Complete Time: 21:45 [facility] 11/14 20:29 Order name: Ptt, Activated; Complete Time: 21:45 [facility] 11/14 20:29 Order name: Troponin (emerg Dept Use Only); Complete Time: 21:51 [facility] 11/14 20:29 Order name: Urine Microscopic Only [facility] 11/14 20:29 Order name: Chest Single View XRAY; Complete Time: 21:29 [facility] 11/14 20:29 Order name: Accucheck; Complete Time: 22:47 [facility] 11/14 20:29 Order name: Cardiac monitoring; Complete Time: 22:47 [facility] 11/14 20:29 Order name: EKG - Nurse/Tech; Complete Time: 22:39 [facility] 11/14 20:29 Order name: IV Saline Lock - Large Bore; Complete Time: 21:18 [facility] 11/14 20:29 Order name: Labs collected and sent; Complete Time: 22:47 [facility] 11/14 20:29 Order name: O2 Per Protocol; Complete Time: 21:18 [facility] 11/14 20:31 Order name: US Extremity Venous W Compression Leonardo [facility] 11/14 21:20 Order name: NT PRO-BNP; Complete Time: 21:51 EDMS 11/14 21:31 Order name: CBC Smear Scan; Complete Time: 22:48 EDMS 11/15 00:06 Order name: Urine Dipstick--Ancillary (enter results) ar5 11/15 00:14 Order name: Urine Dipstick-Ancillary MS 11/14 20:29 Order name: O2 Sat Monitoring; Complete Time: 22:47 mh7 EC:33 Rate is 95 beats/min. Rhythm is regular, Normal Sinus Rhythm. QRS [place] is Normal. [place] mh7 interval is normal. QRS interval is normal. QT interval is normal. No Q waves. T waves are Normal. No ST changes noted. Clinical impression: Normal ECG. Administered Medications: 21:38 Drug: NS 0.9% (30 ml/kg) 30 ml/kg Route: IV; Rate: bolus; Site: right antecubital; vc 22:46 Drug: Lasix 40 mg Route: IVP; Site: right antecubital; vc 22:46 Drug: Clindamycin 900 mg Route: IVPB; Infused Over: 30 mins; Site: right antecubital; vc Disposition: 11/15/19 23:26 Hospitalization ordered by Felipe Shaw for Observation. Preliminary diagnosis are CHF Exacerbation, Lower Extremity Cellulitis. - Bed requested for Telemetry/MedSurg (observation). - Status is Observation. vc - Condition is Stable. - Problem is an acute exacerbation. - Symptoms have improved. Signatures: Dispatcher [employer] [facility] Naya Cabrera RN RN 1 Janiya Ornelas RN RN vc Adan Varela MD MD 7 Corrections: (The following items were deleted from the chart) 21:19 20:31 PROBNP+C.LAB.BRZ ordered. [facility] 11/15 00:12 11/14 23:26 Hospitalization Ordered by Felipe Shaw MD for Observation. Preliminary tl1 diagnosis is CHF Exacerbation; Lower Extremity Cellulitis. Bed requested for Telemetry/MedSurg (observation). Status is Observation. Condition is Stable. Problem is an acute exacerbation. Symptoms have improved. 7 11/15 01:06 00:12 11/15/2019 23:26 Hospitalization Ordered by Felipe Shaw MD for Observation. vc Preliminary diagnosis is CHF Exacerbation; Lower Extremity Cellulitis. Bed requested for Telemetry/MedSurg (observation). Status is Observation. Condition is Stable. Problem is an acute exacerbation. Symptoms have improved. tl1
[2019-11-16 00:14] LABS: Urine Blood NEGATIVE (NEG); Urine Glucose NEGATIVE (NEG); Urine Protein NEGATIVE (NEG); Urine Specific Gravity 1.015 (1.005-1.030); Urine pH 5.5 (5.0-7.0)
--- NOTE | 2019-11-16 00:25 | P.HP ---
Certification for Inpatient With expected LOS: >2 Midnights Patient will require the following post-hospital care: None Practitioner: I am a practitioner with admitting privileges, knowledge of patient current condition, hospital course, and medical plan of care. Services: Services provided to patient in accordance with Admission requirements found in Title 42 Section 412.3 of the Code of Federal Regulations <Ehsan Alberto - Last Filed: 11/16/19 00:14> Patient History Date of Service: 11/16/19 Primary Care Provider: Dr. Faria Reason for admission: Congestive heart failure exacerbation/lower extremity cellulitis History of Present Illness: 79-year-old female with a past medical history of chronic diastolic heart failu re, COPD on home oxygen, hypertension, hypothyroidism, hyperlipidemia, morbid obesity with chronic lymphedema presents to the emergency room complaining of worsening shortness of breath, swelling in the lower extremities and redness and tenderness of her lower extremities. Patient states that she has had intermittent flare ups of lower extremity swelling and shortness of breath. Patient was admitted approximately 1 year ago for similar complaints. States that for the last couple of months she has had worsening shortness of breath, increasing swelling in her lower extremities and now pain secondary to erythema. In the emergency room patient was noted to be 89% on room air. Was placed on 4 L nasal cannula which improved her oxygenation to 97%. Patient states that she was running a fever of 101 at home. In the ER her temperature is 99.1. Her lower extremities are swollen but patient also has a history of chronic lymphedema. Her distal lower extremities are erythematous, unkempt with some slight serosanguineous drainage. Chief her white cell count was noted to be 15.7. Her creatinine is 1.66, GFR 30. Bilateral lower extremity venous Doppler was negative for DVT. Patient had an echocardiogram on 05/2019 which showed chronic diastolic heart failure, mild mitral and tricuspid valve regurgitation. Blood cultures taken prior to antibiotic dosage. Patient was given clindamycin in the ED. Sepsis protocol was started on patient for elevated pulse rate and a respiratory rate of 20. Minimal fluid was given a due to fluid overload from congestive heart failure. Patient will be admitted and further evaluated. Home medications list reviewed: No - Past Medical/Surgical History Diabetic: No -: COPD -: HTN -: Chronic diastolic CHF -: Hypothyroidism -: Hyperlipidemia -: Chronic lymphedema -: Morbid obesity -: Carpal Tunnel Repair -: Vaginal hysterectomy Psychosocial/ Personal History: Patient is a . She lives with her brother and niece. - Family History Family History: Reviewed- Non-Contributory - Social History Smoking Status: Never smoker Alcohol use: No CD- Drugs: No Caffeine use: Yes Place of Residence: Home <Ehsan Alberto - Last Filed: 11/16/19 00:14> Date of Service: 11/17/19 <thu chou - Last Filed: 11/17/19 07:55> Allergies celecoxib [From Celebrex] Allergy (Severe, Verified 12/02/18 01:07) Anaphylaxis Home Medications: Amitriptyline [Elavil*] 25 mg PO BEDTIME 12/02/18 Furosemide [Lasix*] 40 mg PO DAILY 12/02/18 Gabapentin 600 mg PO DAILY 12/02/18 Levothyroxine Sodium 50 mcg PO DAILY 12/02/18 Simvastatin 40 mg PO BEDTIME 12/02/18 Fluticasone/Vilanterol [Breo Ellipta 200-25 Mcg INH] 1 puff IH PRN 11/16/19 Metoprolol Tartrate [Lopressor*] 0.5 tab PO BID 11/16/19 Review of Systems General: As per HPI Eyes: Unremarkable ENT: Unremarkable Respiratory: Shortness of Breath, SOB with Excertion Cardiovascular: Unremarkable Gastrointestinal: Unremarkable Genitourinary: Unremarkable Musculoskeletal: Pedal edema, As per HPI Integumentary: As per HPI Neurological: Unremarkable Lymphatics: As per HPI <MaximeEhsan fernandez - Last Filed: 11/16/19 00:14> Physical Examination - Vital Signs Temperature: 99.1 F Pulse: 97 Respirations: 24 Pulse Ox (%): 4 (L NC) - Physical Exam General: Alert, In no apparent distress, Oriented x3, Obese (Morbidly) HEENT: Atraumatic, Normocephalic, PERRLA, Mucous membr. moist/pink Neck: Supple, No Thyromegaly, Other (Trachea midline) Respiratory: Diminished Cardiovascular: Normal pulses, Regular rate/rhythm, Edema Capillary refill: <2 Seconds Gastrointestinal: Normal bowel sounds, Soft and benign Musculoskeletal: Swelling (Bilateral lower extremity), Erythema (Bilateral lower extremity), Tenderness (Bilateral lower extremity), Warmth (Bilateral lower ext) Integumentary: Skin breakdown (Lower extremity), Tenderness/swelling (Bilateral lower extremity) Neurological: Normal speech, Normal strength at 5/5 x4 extr, Normal tone - Studies Laboratory Data (last 24 hrs) 11/15/19 21:09: PT 13.4 H, INR 1.14, APTT 25.1 11/15/19 21:09: WBC 15.7 H, Hgb 11.1 L, Hct 35.3 L, Plt Count 452 H 11/15/19 21:09: Sodium 138, Potassium 4.5, BUN 20 H, Creatinine 1.66 H, Glucose 133 H, Total Bilirubin 0.5, AST 8 L, ALT 8 L, Alkaline Phosphatase 70, Amylase 57, Lipase 126 <Ehsan Alberto - Last Filed: 11/16/19 00:14> - Studies Microbiology Data (last 24 hrs): 11/15/19 21:33 Blood - Blood Anaerobic Blood Culture - Final <thu chou - Last Filed: 11/17/19 07:55> Assessment and Plan - Plan Impression: Congestive heart failure with acute exacerbation: Sepsis complicated by volume overload: Bilateral lower extremity cellulitis with history of chronic lymphedema: Acute on chronic kidney disease: Essential hypertension: History of COPD: Suspect obstructive sleep apnea: Plan: Congestive heart failure with acute exacerbation: History of chronic diastolic heart failure with poor compliance on fluid intake. Patient given IV Lasix in the ED. Will continue IV Lasix. Monitor I&O. [place] in place. Echocardiogram for May of 2019 showing chronic diastolic heart failure, EF approximately 53% and mild tricuspid and mitral valve regurgitation. Will place on continuous telemetry. Sepsis complicated by volume overload: Patient had a pulse rate greater than 90 and a respiratory rate at 20. Triggers sepsis protocol. Due to volume overload fluid management required. Will continue to monitor vitals. Will reassess. Will start IV antibiotics, blood cultures pending. Bilateral lower extremity cellulitis with history of chronic lymphedema: Patient was given IV clindamycin in the ED. Will start renally dosed IV vancomycin. Patient may require wound care consult. Bilateral lower extremities unkempt increasing risk of bacterial infection. Acute on chronic kidney disease: Creatinine of 1.66 on admission. Will continue to monitor creatinine. Essential hypertension: Monitor blood pressure. Will resume all medications once verified. History of COPD: Requiring 4 L nasal cannula to maintain O2 saturations of 97%. Suspect obstructive sleep apnea: It was recommended that patient have sleep study on the last admission. Unknown if patient completed study or not. Discharge Plan: Home Plan to discharge in: Greater than 2 days - Advance Directives Does patient have a Living Will: No Does patient have a Durable POA for Healthcare: No - Code Status/Comfort Care Code Status Assessed: Yes Time Spent Managing Pts Care (In Minutes): 55 <Ehsan Alberto - Last Filed: 11/16/19 00:14> - Problems (Diagnosis) (1) Lymphedema of both lower extremities Current Visit: Yes Status: Acute (2) Bilateral lower extremity edema Current Visit: No Status: Acute (3) Bilateral lower leg cellulitis Current Visit: No Status: Acute (4) COPD exacerbation Onset Date: 03/23/17 Current Visit: No Status: Acute (5) Acute respiratory failure with hypoxia and hypercapnia Current Visit: Yes Status: Acute (6) Venous stasis dermatitis of both lower extremities Current Visit: Yes Status: Acute (7) Sepsis Current Visit: Yes Status: Acute (8) Obesity hypoventilation syndrome Current Visit: Yes Status: Acute (9) Morbid obesity Current Visit: Yes Status: Acute (10) Anemia Current Visit: Yes Status: Acute (11) Acute renal failure Current Visit: Yes Status: Acute Physician Review: Patient Assessed, Agree with Above Assessment and Plan Physician Review Additional Text: Acute respiratory failure with hypoxia and hypercapnea Morbid obesity Venous stasis dermatitis. Plan: Limit O2 to keep SaO2 88-90% IV antibiotics Wound care. <thu chou - Last Filed: 11/17/19 07:55>
[2019-11-16 00:58] VITALS: BMI 40.3
[2019-11-16] MEDS ORDERED: HOME MED 1 EA UNK (Fluticasone/Vilanterol [Breo Ellipta 200-25 Mcg Inh] 1 PUFF) IH SCH (02:15)
[2019-11-16] MEDS: FUROSEMIDE 40 MG/4 ML VIAL IV SCH ×3 (02:35→16:47)
[2019-11-16] MEDS: HEPARIN 5000 UNIT/ML 1 ML VIAL SQ SCH ×3 (02:36→16:47)
[2019-11-16] MEDS: GABAPENTIN 300 MG CAP PO SCH ×2 (02:41→09:00)
[2019-11-16] MEDS: HYDROCODONE/APAP 5/325 MG TAB PO PRN (02:41)
--- NOTE | 2019-11-16 05:06 | P.INFCA ---
Sepsis Focused Assessment - Focused Assessment Complete? Sepsis Focused Assessment Completed?: Yes - Sepsis Screen Result Severe Sepsis: Negative Septic Shock: Negative - Evaluation Current stage of sepsis: Ruled out Reason for ruling out sepsis: resolved - hr 88, RR 16, temp 98.5 - Vital Signs Reviewed: Yes Temperature: 98.5 F Heart rate: 88 Blood Pressure: 104/41 Respiratory Rate: 16 O2 Sat by Pulse Oximetry: 96 - Examination Date exam was performed: 11/16/19 Time exam was performed: 04:45 (AM) Heart: Regular rate/rhythm Lungs: Clear bilaterally Peripheral pulses: 3+ Normal Peripheral pulse location: Posterior tibial Capillary refill: <2 Seconds Skin examination: Normal turgor
[2019-11-16 06:18] LABS: Absolute Lymphocytes (CBC) 1.6 K/uL (0.7-4.9); Basophils % 0.6 % (0-1.3); Hematocrit 29.9 % (36.0-45.0); Lymphocytes % 11.9 % (15.3-44.8); RBC Red Blood Cell Count 3.41 M/uL (3.86-4.86)
[2019-11-16 06:25] LABS: Magnesium 2.2 mg/dL (1.8-2.4); Potassium 4.3 mmol/L (3.5-5.1)
--- NOTE | 2019-11-16 07:30 | RAD REPORT ---
EXAM DESCRIPTION: USExtrem Venous W Compress Bil11/15/2019 9:42 pm CLINICAL HISTORY: Bilateral leg swelling COMPARISON: April 2019 FINDINGS: The common femoral, superficial femoral, popliteal and posterior tibial veins bilaterally are compressible and demonstrate augmentation. Doppler demonstrates good flow. IMPRESSION: No evidence of deep venous thrombosis involving either lower extremity.
[2019-11-16] MEDS: LEVOTHYROXINE SOD 0.05 MG TABLET PO SCH (09:00)
[2019-11-16] MEDS: METOPROLOL TAR 50 MG TAB PO SCH ×2 (09:00→20:38)
[2019-11-16] MEDS: VANCOMYCIN 2 GM in NA CHLORIDE 0.9% 500 ML IVPB SCH (09:51)
[2019-11-16 10:12] LABS: Arterial Blood Carboxyhemoglob 0.7 % (0-1.5); Blood Gas Oxyhemoglobin 96.8 % (94-97); Blood O2 Saturation 98.8 % (92-98.5)
[2019-11-16 12:23] LABS: Arterial Blood Carboxyhemoglob 1.1 % (0-1.5); Blood O2 Saturation 87.9 % (92-98.5)
--- NOTE | 2019-11-16 13:08 | P.PN ---
Subjective Date of Service: 11/16/19 Primary Care Provider: Dr. Faria Chief Complaint: Congestive heart failure exacerbation/lower extremity cellulitis Patient found to be confused this morning. Arterial blood gas showing CO2 retention. She has been afebrile since admission Physical Examination - Vital Signs Temperature: 98.2 F Blood Pressure: 128/56 Pulse: 86 Respirations: 12 Pulse Ox (%): 89 - Physical Exam General: In no apparent distress, Confused HEENT: Mucous membr. moist/pink Neck: Supple, JVD not distended Respiratory: Clear to auscultation bilaterally, Diminished Cardiovascular: Edema (3+ bilateral lower extremities.) Gastrointestinal: Normal bowel sounds, Soft and benign, Non-distended, No tenderness Musculoskeletal: Erythema (Lower extremity), Other (Bilateral lower extremity lymphedema.) Integumentary: Other (Bilateral venous stasis dermatitis of lower extremities with weeping sores.) Neurological: Other (Confused, moves all extremities spontaneously.) - Studies Laboratory Data (last 24 hrs) 11/15/19 21:09: PT 13.4 H, INR 1.14, APTT 25.1 11/15/19 21:09: WBC 15.7 H, Hgb 11.1 L, Hct 35.3 L, Plt Count 452 H 11/15/19 21:09: Sodium 138, Potassium 4.5, BUN 20 H, Creatinine 1.66 H, Glucose 133 H, Total Bilirubin 0.5, AST 8 L, ALT 8 L, Alkaline Phosphatase 70, Amylase 57, Lipase 126 Microbiology Data (last 24 hrs): 11/15/19 21:33 Blood - Blood Anaerobic Blood Culture - Final Assessment And Plan - Current Problems (Diagnosis) (1) Lymphedema of both lower extremities Current Visit: Yes Status: Acute (2) Bilateral lower extremity edema Current Visit: No Status: Acute (3) Bilateral lower leg cellulitis Current Visit: No Status: Acute (4) COPD exacerbation Onset Date: 03/23/17 Current Visit: No Status: Acute (5) Acute respiratory failure with hypoxia and hypercapnia Current Visit: Yes Status: Acute (6) Venous stasis dermatitis of both lower extremities Current Visit: Yes Status: Acute (7) Sepsis Current Visit: Yes Status: Acute (8) Obesity hypoventilation syndrome Current Visit: Yes Status: Acute (9) Morbid obesity Current Visit: Yes Status: Acute (10) Anemia Current Visit: Yes Status: Acute (11) Acute renal failure Current Visit: Yes Status: Acute - Plan Continue current antibiotics. Add IV Levaquin BiPAP therapy for CO2 retention. Limit oxygen supplementation to keep SaO2 between 88-90% Bronchodilators Pulmonary consult. Wound care. Infectious disease input appreciated. Keep lower extremities elevated. Lymphedema wrap. Lasix therapy Follow blood cultures. Monitor renal function and CBC.
[2019-11-16] MEDS: Levofloxacin 750mg IV 750 MG/150 ML BAG IV SCH (14:05)
[2019-11-16] MEDS: AMITRIPTYLINE 25 MG TAB PO SCH (20:38)
[2019-11-17] MEDS: HEPARIN 5000 UNIT/ML 1 ML VIAL SQ SCH ×3 (01:33→17:00)
[2019-11-17] MEDS: FUROSEMIDE 40 MG/4 ML VIAL IV SCH ×3 (01:33→17:31)
[2019-11-17 04:04] LABS: Absolute Lymphocytes (CBC) 1.3 K/uL (0.7-4.9); Basophils % 1.4 % (0-1.3); Hematocrit 31.1 % (36.0-45.0); Lymphocytes % 15.6 % (15.3-44.8); MPV 8.2 fL (7.6-11.3); RBC Red Blood Cell Count 3.57 M/uL (3.86-4.86)
[2019-11-17 04:16] LABS: Potassium 3.5 mmol/L (3.5-5.1)
[2019-11-17] MEDS ORDERED: POTASSIUM 25 MEQ EFFERV TAB PO ONE (06:01)
[2019-11-17] MEDS: METOPROLOL TAR 50 MG TAB PO SCH ×2 (08:39→18:28)
[2019-11-17] MEDS: GABAPENTIN 300 MG CAP PO SCH (08:39)
[2019-11-17] MEDS: LEVOTHYROXINE SOD 0.05 MG TABLET PO SCH (08:39)
[2019-11-17 09:10] LABS: Urine Appearance CLEAR; Urine Bilirubin NEGATIVE (NEG); Urine Blood TRACE (NEG); Urine Color YELLOW; Urine Glucose NEGATIVE (NEG); Urine Protein NEGATIVE (NEG); Urine Urobilinogen 0.2 mg/dL (0.2-1.0)
[2019-11-17 09:12] LABS: Urine Microscopic Reflex ORDER UMIC
[2019-11-17 09:26] LABS: Urine Bacteria <20 /HPF (<20); Urine Culture Reflex Order REFLEXED; Urine RBC <5 /HPF (NONE SEEN)
[2019-11-17] MEDS: LIDOCAINE 5% OINT 30 GM TUBE TOP SCH (11:17)
--- NOTE | 2019-11-17 11:25 | P.CNS ---
Date of Consult: 11/17/19 Reason for Consult: Respiratory failure Primary Care Provider: Dr. Faria Chief Complaint: Respiratory failure History of Present Illness: Patient is 79 years of age with chronic diastolic heart failure COPD multiple medical problems in addition to chronic lymphedema admitted with worsening redness and cellulitis of the lower extremities patient was admitted here in May of 2018 and was discharged home his found to be hypoxic been running a fever at home see with sanguinous discharge from her lower extremities patient has chronic diastolic heart failure Allergies celecoxib [From Celebrex] Allergy (Severe, Verified 12/02/18 01:07) Anaphylaxis Home Medications: Amitriptyline [Elavil*] 25 mg PO BEDTIME 12/02/18 Furosemide [Lasix*] 40 mg PO DAILY 12/02/18 Gabapentin 600 mg PO DAILY 12/02/18 Levothyroxine Sodium 50 mcg PO DAILY 12/02/18 Simvastatin 40 mg PO BEDTIME 12/02/18 Fluticasone/Vilanterol [Breo Ellipta 200-25 Mcg INH] 1 puff IH PRN 11/16/19 Metoprolol Tartrate [Lopressor*] 0.5 tab PO BID 11/16/19 - Past Medical/Surgical History Diabetic: No -: COPD -: HTN -: Chronic diastolic CHF -: Hypothyroidism -: Hyperlipidemia -: Chronic lymphedema -: Morbid obesity -: Carpal Tunnel Repair -: Vaginal hysterectomy Psychosocial/ Personal History: Patient is a . She lives with her brother and niece. - Family History Father Medical History: Hypertension, Cancer Notes: colon cancer Mother Medical History: Hypertension, Other (see notes) Notes: dementia - Social History Alcohol use: No CD- Drugs: No Caffeine use: Yes Place of Residence: Home Review of Systems General: Weakness Respiratory: Shortness of Breath Integumentary: Rash (Patient has chronic lymphedema with serous sanguinous discharge left appears to be worse in the right) Physical Examination Temp Pulse Resp BP Pulse Ox 98.9 F 86 16 129/57 L 95 11/17/19 08:00 11/17/19 08:39 11/17/19 08:00 11/17/19 08:39 11/17/19 08:00 General: Alert, Oriented x3 Neck: Supple Respiratory: Clear to auscultation bilaterally, Diminished Cardiovascular: Normal S1 S2, Edema (Chronic exam mitis changes) Gastrointestinal: Normal bowel sounds, Soft and benign - Problems (1) Respiratory failure Current Visit: Yes Status: Acute Plan: Patient appears to have chronic respiratory failure chest x-ray clear patient refuse a noninvasive ventilator last time will try again patient is on bronchodilators at home was not smoke chronic diastolic failure patient was hypoxic hypercapnic on admission white count is now normal patient has chronic renal insufficiency thyroid function tests on previous admission was normal Patient has presumably severe COPD and has chronic respiratory failure needs an IPPB to prevent hospital Re admissions and will benefit from a trilogy volume ventilator for nocturnal and daytime use as needed to reduce the risk of hospitalization home BiPAP will be insufficient for the severity of her condition patient is on vancomycin and level Floxin Qualifiers: Chronicity: chronic Respiratory failure complication: hypoxia and hypercapnia Qualified Code(s): J96.11 - Chronic respiratory failure with hypoxia; J96.12 - Chronic respiratory failure with hypercapnia
[2019-11-17] MEDS: ARFORMOTEROL TARTRATE 15 MCG/2 ML VIAL.NEB NEB SCH ×2 (11:33→20:40)
[2019-11-17] MEDS: IPRATROPIUM BROM 0.5MG/2.5ML IH PRN ×2 (13:10→20:40)
--- NOTE | 2019-11-17 13:20 | P.PN ---
Subjective Date of Service: 11/17/19 Primary Care Provider: Dr. Faria Chief Complaint: Respiratory failure Patient is awake and alert. Bilateral lower extremity swelling and weeping sores have improved significantly. Physical Examination - Vital Signs Temperature: 98.6 F Blood Pressure: 131/59 Pulse: 85 Respirations: 16 Pulse Ox (%): 93 - Physical Exam General: Alert, In no apparent distress Neck: Supple, JVD not distended Respiratory: Clear to auscultation bilaterally, Normal air movement Cardiovascular: Regular rate/rhythm, Normal S1 S2, Edema (2+ bilateral lower extremities) Gastrointestinal: Normal bowel sounds, Soft and benign, No tenderness Musculoskeletal: Other (Bilateral lower extremity lymphedema) Neurological: Other (Nonfocal) - Studies Microbiology Data (last 24 hrs): 11/15/19 21:33 Blood - Blood Anaerobic Blood Culture - Final Assessment And Plan - Current Problems (Diagnosis) (1) Lymphedema of both lower extremities Current Visit: Yes Status: Acute (2) Bilateral lower extremity edema Current Visit: No Status: Acute (3) Bilateral lower leg cellulitis Current Visit: No Status: Acute (4) COPD exacerbation Onset Date: 03/23/17 Current Visit: No Status: Acute (5) Acute respiratory failure with hypoxia and hypercapnia Current Visit: Yes Status: Acute (6) Venous stasis dermatitis of both lower extremities Current Visit: Yes Status: Acute (7) Sepsis Current Visit: Yes Status: Acute (8) Obesity hypoventilation syndrome Current Visit: Yes Status: Acute (9) Morbid obesity Current Visit: Yes Status: Acute (10) Anemia Current Visit: Yes Status: Acute (11) Acute renal failure Current Visit: Yes Status: Acute - Plan Continue antibiotics BiPAP therapy for CO2 retention. Limit oxygen supplementation to keep SaO2 between 88-90% Bronchodilators Pulmonary consult reviewed. Dr. Mcneil recommend trilogy at home. Wound care. Infectious disease input appreciated. Keep lower extremities elevated. Continue Lasix therapy Blood cultures: No growth to date. Serum creatinine is improving slowly. Monitor renal function. Physician Review: Patient Assessed, Agree with Above Assessment and Plan
[2019-11-17] MEDS ORDERED: DIGOXIN 0.25 MG/ML AMP IV ONE (19:00)
[2019-11-17] MEDS: VANCOMYCIN 2 GM in NA CHLORIDE 0.9% 500 ML IVPB SCH (21:57)
[2019-11-17] MEDS: AMITRIPTYLINE 25 MG TAB PO SCH (21:59)
--- NOTE | 2019-11-17 21:59 | CON ---
Date of Consultation: 11/17/2019 Reason For Consultation: New-onset atrial fibrillation. History Of Present Illness: Ms. Yusuf is a 79-year-old woman, who has not had a previous cardiac his tory. She has a history of asthma, obesity, dyslipidemia, and hypertension. She was admitted for ce llulitis and is now on vancomycin and Levaquin for that. While she was being on telemetry, she went into rapid atrial fibrillation without any hemodynamic compromise or symptoms. The patient denied an y PND, orthopnea, or chest pain. She denied any palpitation or syncope. She has had pedal edema wit h negative venous Doppler, diagnosis of cellulitis, on antibiotics right now. Past Medical History: As stated above. Review of Systems: Negative. Social History: Negative. Family History: Negative. Allergies: CELECOXIB. Medications: Her medications at home include inhalers, Lasix, Neurontin, Zocor, and metoprolol. Physical Examination: General: Ms. Yusuf was in no acute distress. She is obese. Vital Signs: Stable. She was afebrile. Her heart rate was in the 110 to 120s. HEENT: Negative. Neck: Supple with no bruit, lymphadenopathy, JVD, or thyromegaly. Chest: Clear. Cardiac: Irregularly irregular rhythm and rate without any murmurs, gallops, or rubs. Abdomen: Obese. Extremities: Edema and cellulitis bilaterally. Diagnostic Data: Creatinine is 1.57. Venous Doppler is negative. Hemoglobin 9.9. Echocardiogram i n May of 2019 was normal. Her pO2 was 64, pCO2 was 77, pH was 7.25. Impression And Plan: 1.New-onset atrial fibrillation. The patient has many reasons to be in atrial fibrillation includin g her hypoventilation syndrome secondary to obesity and asthma. 2.Hypertension. 3.Dyslipidemia. 4.New-onset cellulitis. 5.Anemia. 6.Chronic renal disease stage 3. I suggest giving Ms. Yusuf 0.5 mg of digoxin IV push x1 dose. We need to give her a 50 mg of metopro lol now and then increase her metoprolol to 50 mg b.i.d. She is on heparin for anticoagulation. I w ould continue that. I would like to have her repeat her echo early next week. I would like to obtai n a TSH level. I think may be worth getting a Lexiscan on her as an outpatient. I will continue her inhalers, her Synthroid, her Neurontin, and her antibiotics. She is also on IV Lasix. Pulmonology has been consulted. We need to watch her creatinine with IV Lasix. Zocor should be reinstated. I w ill continue to follow her. If she remains in atrial fibrillation for the next day or so, we may hav e to switch her to Betapace 80 mg one p.o. b.i.d. I will discuss the case further with Dr. Sethi. CESAR/BRITNI Voice ID: [id number] Report ID: [id number]
[2019-11-18] MEDS: FUROSEMIDE 40 MG/4 ML VIAL IV SCH ×3 (00:49→16:14)
[2019-11-18] MEDS: HEPARIN 5000 UNIT/ML 1 ML VIAL SQ SCH ×3 (00:50→16:14)
[2019-11-18 05:14] LABS: Potassium 3.2 mmol/L (3.5-5.1); Thyroid Stimulating Hormone 0.947 uIU/mL (0.360-3.740)
[2019-11-18] MEDS ORDERED: POTASSIUM CL SA 10 MEQ TAB PO ONE ×2 (08:00→17:29)
[2019-11-18] MEDS: ARFORMOTEROL TARTRATE 15 MCG/2 ML VIAL.NEB NEB SCH ×2 (08:28→20:05)
[2019-11-18] MEDS: IPRATROPIUM BROM 0.5MG/2.5ML IH PRN ×2 (08:28→13:40)
[2019-11-18] MEDS: METOPROLOL TAR 50 MG TAB PO SCH ×2 (08:37→21:00)
[2019-11-18] MEDS: GABAPENTIN 300 MG CAP PO SCH (08:37)
[2019-11-18] MEDS: LEVOTHYROXINE SOD 0.05 MG TABLET PO SCH (08:38)
[2019-11-18] MEDS: LIDOCAINE 5% OINT 30 GM TUBE TOP SCH (10:31)
--- NOTE | 2019-11-18 12:54 | P.PN ---
Subjective Date of Service: 11/18/19 Primary Care Provider: Dr. Faria Chief Complaint: Respiratory failure Patient is awake and alert. Patient desaturate to 82% on room air. Bilateral lower extremity edema continue to improve. She developed a brief atrial fibrillation yesterday. Patient is currently in sinus rhythm. Physical Examination - Vital Signs Temperature: 99.1 F Blood Pressure: 141/65 Pulse: 70 Respirations: 16 Pulse Ox (%): 98 - Physical Exam General: Alert, In no apparent distress HEENT: Mucous membr. moist/pink Neck: Supple Respiratory: Diminished (Bilateral) Cardiovascular: Regular rate/rhythm, Normal S1 S2, Edema (2+ bilateral lower extremity pitting edema) Gastrointestinal: Normal bowel sounds, Soft and benign, Non-distended Musculoskeletal: Other (Bilateral lower extremity lymphedema) Integumentary: Other (Bilateral lower extremity venostasis dermatitis) Neurological: Other (Nonfocal) Assessment And Plan - Current Problems (Diagnosis) (1) Lymphedema of both lower extremities Current Visit: Yes Status: Acute (2) Bilateral lower extremity edema Current Visit: No Status: Acute (3) Bilateral lower leg cellulitis Current Visit: No Status: Acute (4) COPD exacerbation Onset Date: 03/23/17 Current Visit: No Status: Acute (5) Acute respiratory failure with hypoxia and hypercapnia Current Visit: Yes Status: Acute (6) Venous stasis dermatitis of both lower extremities Current Visit: Yes Status: Acute (7) Sepsis Current Visit: Yes Status: Acute (8) Obesity hypoventilation syndrome Current Visit: Yes Status: Acute (9) Morbid obesity Current Visit: Yes Status: Acute (10) Anemia Current Visit: Yes Status: Acute (11) Acute renal failure Current Visit: Yes Status: Acute (12) Atrial fibrillation Current Visit: Yes Status: Acute Qualifiers: Atrial fibrillation type: unspecified Qualified Code(s): I48.91 - Unspecified atrial fibrillation (13) HTN (hypertension) Onset Date: 03/23/17 Current Visit: No Status: Chronic Qualifiers: Hypertension type: essential hypertension Qualified Code(s): I10 - Essential (primary) hypertension - Plan Continue antibiotics BiPAP therapy for CO2 retention. Limit oxygen supplementation to keep SaO2 between 88-90% Bronchodilators. Pulmonary consult reviewed. Dr. Mcneil recommend trilogy at home. Add IV steroid. Continue wound care. Keep lower extremities elevated. Continue Lasix therapy Blood cultures: No growth to date. Serum creatinine is improving slowly. Monitor renal function. Continue metoprolol. Monitor blood pressure. Cardiology input appreciated. Optimize electrolytes. Keep potassium level greater than 4.
[2019-11-18] MEDS: Levofloxacin 750mg IV 750 MG/150 ML BAG IV SCH (14:09)
--- NOTE | 2019-11-18 17:59 | PN ---
Date of Progress Note: 11/18/2019 Subjective: Ms. Yusuf is a 79-year-old white woman who was in the hospital for cellulitis, chronic r enal disease, anemia, dyslipidemia, and hypertension. Went in to new onset atrial fibrillation yeste rday, was given a dose of digoxin and metoprolol was increased to 50 b.i.d. She has converted to sin us rhythm since. She is on heparin for anticoagulation. I will continue her present regimen with me toprolol 50 b.i.d. Heparin for anticoagulation. Continue the rest of her regimen. If she goes back into atrial fibrillation, we will put her on sotalol 80 b.i.d. So, for now, I will sign off her devon e and I will be available for questions if the need arises. CESAR/BRITNI Voice ID: [id number] Report ID: [id number]
[2019-11-18] MEDS: HYDROCODONE/APAP 5/325 MG TAB PO PRN (18:06)
[2019-11-18] MEDS: METHYLPREDNISOLONE 40 MG INJ IV SCH (20:57)
[2019-11-18] MEDS ORDERED: HOME MED 1 EA UNK (Simvastatin [Simvastatin] 40 MG) PO SCH (21:00)
[2019-11-18] MEDS: AMITRIPTYLINE 25 MG TAB PO SCH (21:01)
[2019-11-18] MEDS: ATORVASTATIN 20 MG TAB PO SCH (21:01)
[2019-11-19] MEDS: FUROSEMIDE 40 MG/4 ML VIAL IV SCH ×3 (01:41→20:57)
[2019-11-19] MEDS: HEPARIN 5000 UNIT/ML 1 ML VIAL SQ SCH ×3 (01:42→16:26)
[2019-11-19 04:49] LABS: Potassium 3.9 mmol/L (3.5-5.1)
[2019-11-19] MEDS: HYDROCODONE/APAP 5/325 MG TAB PO PRN ×3 (05:10→20:57)
[2019-11-19] MEDS: LEVOTHYROXINE SOD 0.05 MG TABLET PO SCH (07:47)
[2019-11-19] MEDS: METOPROLOL TAR 50 MG TAB PO SCH ×2 (07:48→21:58)
[2019-11-19] MEDS: GABAPENTIN 300 MG CAP PO SCH (07:48)
[2019-11-19] MEDS: LIDOCAINE 5% OINT 30 GM TUBE TOP SCH (07:49)
[2019-11-19] MEDS: METHYLPREDNISOLONE 40 MG INJ IV SCH ×2 (07:49→20:58)
[2019-11-19] MEDS ORDERED: POTASSIUM CL SA 10 MEQ TAB PO ONE (08:00)
[2019-11-19] MEDS: IPRATROPIUM BROM 0.5MG/2.5ML IH PRN ×3 (08:15→20:50)
[2019-11-19] MEDS: ARFORMOTEROL TARTRATE 15 MCG/2 ML VIAL.NEB NEB SCH ×2 (08:15→20:50)
[2019-11-19] MEDS ORDERED: FLUOCINONIDE 0.05% CREAM 30GM TOP SCH (09:00)
[2019-11-19] MEDS: VANCOMYCIN 2 GM in NA CHLORIDE 0.9% 500 ML IVPB SCH (09:00)
--- NOTE | 2019-11-19 09:47 | EKG ---
Test Date: 2019-11-17 Test Time: 20:25:10 [employer] Buyer: RT Wilson MEASUREMENT RESULTS: Intervals: Rate: 68 AL: 178 QRSD: 96 QT: 410 QTc: 435 [place]: P: 55 AL: 178 QRS: 50 T: 41 INTERPRETIVE STATEMENTS: Normal sinus rhythm Normal ECG Compared to ECG 05/23/2019 16:48:47 Myocardial infarct finding no longer present Electronically Signed On 11-19-19 09:44:36 CDT by Ervin Mcdonald
[2019-11-19] MEDS: FLUOCINONIDE 0.05% CREAM 30GM TOP SCH (11:33)
--- NOTE | 2019-11-19 13:05 | P.PN ---
Subjective Date of Service: 11/19/19 Primary Care Provider: Dr. Faria Chief Complaint: Respiratory failure Patient is getting a bit confused and was saturating on 2 L of oxygen by nasal cannula. She is currently in sinus rhythm. She has been afebrile. She is refusing to wear BiPAP. Physical Examination - Vital Signs Temperature: 98.3 F Blood Pressure: 163/67 Pulse: 74 Respirations: 16 Pulse Ox (%): 92 - Physical Exam General: Confused HEENT: Mucous membr. moist/pink Neck: Supple, JVD not distended Respiratory: Clear to auscultation bilaterally, Diminished Cardiovascular: Regular rate/rhythm, Normal S1 S2 Gastrointestinal: Normal bowel sounds, Soft and benign, No tenderness Musculoskeletal: Other (Bilateral lower extremity lymphedema.) Integumentary: Other (Bilateral lower extremity venostasis dermatitis.) Neurological: Other (Nonfocal.) Assessment And Plan - Current Problems (Diagnosis) (1) Lymphedema of both lower extremities Current Visit: Yes Status: Acute (2) Bilateral lower extremity edema Current Visit: No Status: Acute (3) Bilateral lower leg cellulitis Current Visit: No Status: Acute (4) COPD exacerbation Onset Date: 03/23/17 Current Visit: No Status: Acute (5) Acute respiratory failure with hypoxia and hypercapnia Current Visit: Yes Status: Acute (6) Venous stasis dermatitis of both lower extremities Current Visit: Yes Status: Acute (7) Sepsis Current Visit: Yes Status: Acute (8) Obesity hypoventilation syndrome Current Visit: Yes Status: Acute (9) Morbid obesity Current Visit: Yes Status: Acute (10) Anemia Current Visit: Yes Status: Acute (11) Acute renal failure Current Visit: Yes Status: Acute (12) Atrial fibrillation Current Visit: Yes Status: Acute Qualifiers: Atrial fibrillation type: unspecified Qualified Code(s): I48.91 - Unspecified atrial fibrillation (13) HTN (hypertension) Onset Date: 03/23/17 Current Visit: No Status: Chronic Qualifiers: Hypertension type: essential hypertension Qualified Code(s): I10 - Essential (primary) hypertension - Plan Continue antibiotics BiPAP therapy as tolerated. Recommend BiPAP every night. Limit oxygen supplementation to keep SaO2 between 88-90% Bronchodilators. Dr. Mcneil recommend trilogy at home. Continue steroid. Continue wound care. Keep lower extremities elevated. Continue Lasix therapy Blood cultures: No growth to date. No changes serum creatinine level. Relatively stable. Monitor renal function. Continue metoprolol. Monitor blood pressure. Hydralazine p.r.n. for BP spikes. Cardiology input appreciated. Optimize electrolytes. Keep potassium level greater than 4.
[2019-11-19] MEDS: ATORVASTATIN 20 MG TAB PO SCH (20:57)
[2019-11-19] MEDS: AMITRIPTYLINE 25 MG TAB PO SCH (20:58)
[2019-11-19] MEDS ORDERED: VANCOMYCIN 2 GM in NA CHLORIDE 0.9% 500 ML IVPB SCH (21:00)
[2019-11-20] MEDS: HEPARIN 5000 UNIT/ML 1 ML VIAL SQ SCH ×3 (01:00→16:26)
[2019-11-20 04:11] LABS: Absolute Lymphocytes (CBC) 0.6 K/uL (0.7-4.9); Basophils % 0.1 % (0-1.3); Hematocrit 35.1 % (36.0-45.0); Lymphocytes % 10.4 % (15.3-44.8); MPV 8.2 fL (7.6-11.3); RBC Red Blood Cell Count 4.11 M/uL (3.86-4.86)
[2019-11-20 04:25] LABS: Potassium 3.7 mmol/L (3.5-5.1)
[2019-11-20] MEDS ORDERED: POTASSIUM CL SA 10 MEQ TAB PO ONE (06:00)
[2019-11-20] MEDS: ARFORMOTEROL TARTRATE 15 MCG/2 ML VIAL.NEB NEB SCH ×2 (07:50→19:55)
[2019-11-20] MEDS: LEVOTHYROXINE SOD 0.05 MG TABLET PO SCH (09:10)
[2019-11-20] MEDS: GABAPENTIN 300 MG CAP PO SCH (09:10)
[2019-11-20] MEDS: FUROSEMIDE 40 MG/4 ML VIAL IV SCH ×2 (09:10→19:46)
[2019-11-20] MEDS: FLUOCINONIDE 0.05% CREAM 30GM TOP SCH (09:11)
[2019-11-20] MEDS: METHYLPREDNISOLONE 40 MG INJ IV SCH ×2 (09:11→19:47)
[2019-11-20] MEDS: LIDOCAINE 5% OINT 30 GM TUBE TOP SCH (09:11)
[2019-11-20] MEDS: VANCOMYCIN 2 GM in NA CHLORIDE 0.9% 500 ML IVPB SCH (09:12)
[2019-11-20] MEDS: METOPROLOL TAR 50 MG TAB PO SCH ×2 (09:45→19:47)
[2019-11-20] MEDS: HYDROCODONE/APAP 5/325 MG TAB PO PRN ×2 (09:46→19:47)
--- NOTE | 2019-11-20 14:10 | P.PN ---
Subjective Date of Service: 11/20/19 Primary Care Provider: Dr. Faria Chief Complaint: Respiratory failure Patient stated she desires to go home. She has been tolerating 2 L of oxygen by nasal cannula. She is currently in sinus rhythm. She has been afebrile. She is refusing to wear BiPAP. Patient seen breathing with pursed lips. Physical Examination - Vital Signs Temperature: 97.9 F Blood Pressure: 132/63 Pulse: 64 Respirations: 18 Pulse Ox (%): 93 - Physical Exam General: In no apparent distress HEENT: Mucous membr. moist/pink Neck: JVD not distended Respiratory: Diminished (Diffuse) Cardiovascular: Regular rate/rhythm, Normal S1 S2, Edema (Bilateral lower extremities.) Gastrointestinal: Normal bowel sounds, Soft and benign, Non-distended, No tenderness Musculoskeletal: Other (Bilateral lower extremity lymphedema) Integumentary: Venous stasis ulcer, Other (Bilateral lower extremity venostasis dermatitis and scaling of skin.) Neurological: Other (Nonfocal) Assessment And Plan - Current Problems (Diagnosis) (1) Lymphedema of both lower extremities Current Visit: Yes Status: Acute (2) Bilateral lower extremity edema Current Visit: No Status: Acute (3) Bilateral lower leg cellulitis Current Visit: No Status: Acute (4) COPD exacerbation Onset Date: 03/23/17 Current Visit: No Status: Acute (5) Acute respiratory failure with hypoxia and hypercapnia Current Visit: Yes Status: Acute (6) Venous stasis dermatitis of both lower extremities Current Visit: Yes Status: Acute (7) Sepsis Current Visit: Yes Status: Acute (8) Obesity hypoventilation syndrome Current Visit: Yes Status: Acute (9) Morbid obesity Current Visit: Yes Status: Acute (10) Anemia Current Visit: Yes Status: Acute (11) Acute renal failure Current Visit: Yes Status: Acute (12) Atrial fibrillation Current Visit: Yes Status: Acute Qualifiers: Atrial fibrillation type: unspecified Qualified Code(s): I48.91 - Unspecified atrial fibrillation (13) HTN (hypertension) Onset Date: 03/23/17 Current Visit: No Status: Chronic Qualifiers: Hypertension type: essential hypertension Qualified Code(s): I10 - Essential (primary) hypertension - Plan Continue antibiotics. Transition to oral antibiotics. Patient we CO2 retention. BiPAP therapy as tolerated. Recommend BiPAP every night. Patient refusing BiPAP and stating it is very uncomfortable. Limit oxygen supplementation to keep SaO2 between 88-90% Bronchodilators. Dr. Mcneil recommend trilogy at home. Continue steroid. Continue wound care. Keep lower extremities elevated. Creatinine is trending up Will cut back on Lasix to 40 mg daily. Nephrology consult. Monitor renal function. Monitor blood pressure. Hydralazine p.r.n. for BP spikes. Cardiology input appreciated. Patient spontaneously converted to sinus rhythm. Continue metoprolol. Optimize electrolytes. Keep potassium level greater than 4. Physician Review: Patient Assessed, Agree with Above Assessment and Plan
[2019-11-20] MEDS: Levofloxacin 750mg IV 750 MG/150 ML BAG IV SCH (14:57)
[2019-11-20] MEDS: AMITRIPTYLINE 25 MG TAB PO SCH (19:47)
[2019-11-20] MEDS: ATORVASTATIN 20 MG TAB PO SCH (19:47)
[2019-11-20] MEDS: IPRATROPIUM BROM 0.5MG/2.5ML IH PRN (19:55)
[2019-11-21] MEDS: HYDROCODONE/APAP 5/325 MG TAB PO PRN ×2 (00:25→05:02)
[2019-11-21] MEDS: HEPARIN 5000 UNIT/ML 1 ML VIAL SQ SCH ×3 (00:26→17:50)
[2019-11-21 04:25] LABS: Magnesium 1.9 mg/dL (1.8-2.4); Phosphorus 3.6 mg/dL (2.5-4.9); Potassium 3.5 mmol/L (3.5-5.1)
[2019-11-21] MEDS ORDERED: POTASSIUM CL SA 10 MEQ TAB PO ONE (04:43)
--- NOTE | 2019-11-21 05:05 | CON ---
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 History Of Present Illness: The patient is admitted to the hospital for chronic lymphedema, worsenin g of the cellulitis, redness of the lower extremity with some weeping skin area. The patient was fou nd to have hypoxemia, fever, and sanguineous discharge from the lower extremity and was admitted to [facility] for IV antibiotics and diuretic therapy. The patient was taking Lasix. She has history of hyperlipidemia, hypothyroidism, hypertension, chronic kidney disease stage 3. Baseline creatinine level was 0.9 to 1.0. During this hospitalization, renal function was found to be diminished and tania herrera had some workup done to screen for nephritis and proteinuria. Nephrology consultation is reque sted for possible nephrotic syndrome as well as to control electrolytes abnormalities. Review of Systems: The patient is lethargic, cannot provide review of systems. In general, patient complains of weaknes s, some shortness of breath and chronic leg edema, lymphedema with exacerbated cellulitis. Past Medical History: COPD, hypertension, chronic diastolic congestive heart failure, hypothyroidism , hyperlipidemia, chronic lymphedema, morbid obesity, hypertensive heart and kidney disease, carpal t unnel syndrome and surgery, vaginal hysterectomy. Family History: Father, hypertension and cancer. Colon cancer in family. Mother, hypertension. Social History: Denies tobacco, alcohol, or illicit drugs. Physical Examination: General: Alert, oriented x3. Neck: Supple. Lungs: Bilateral rhonchi, diminished breath sound. Cardiovascular: S1 and S2. Abdomen: Soft. Benign. Extremities: Edema present and dressing in place. Neurologic: Moving extremities. Cranial nerves intact. Psychiatric: Alert, oriented. Follows some commands. Laboratory Data: Blood work: Sodium 138, potassium 3.7, chloride 80, CO2 44, BUN 34, creatinine 1.7 9, glucose 179, calcium 8.6. Urinalysis; specific gravity 1.010, blood trace, ketones negative, leuk ocyte esterase 1+, rbc less than 5, wbc 5 to 10. Proteinuria screen showed negative protein in the u rine. Renal ultrasound is pending. Impression And Plan: 1.Acute on chronic kidney injury. 2.The patient has history of congestive heart failure and was evaluated by Cardiology for acute gloria nary syndrome. 3.The patient has severe bilateral edema complicated by lymphedema and cellulitis. Continue Lasix. Adjust diuretic combination to prevent electrolyte abnormalities. 4.Atrial fibrillation per primary team and Cardiology. 5.Anemia. Monitor hemoglobin level. Adjust iron replacement. Considered an EMILY. 6.Sepsis. Continue antibiotics. Plan is to screen for monoclonal gammopathy of unknown significance. There is a possible M-spike carolann pite the fact that proteinuria screen is negative. Plan is to check protein to creatinine ratio as w ell. EB/MODL Voice ID: [id number] Report ID: [id number]
[2019-11-21] MEDS: ARFORMOTEROL TARTRATE 15 MCG/2 ML VIAL.NEB NEB SCH ×2 (08:07→19:55)
[2019-11-21] MEDS: acetaZOLAMIDE 250 MG TAB PO SCH (10:57)
[2019-11-21] MEDS: LEVOTHYROXINE SOD 0.05 MG TABLET PO SCH (10:57)
[2019-11-21] MEDS: SPIRONOLACTONE 25 MG TABLET PO SCH (10:57)
[2019-11-21] MEDS: METHYLPREDNISOLONE 40 MG INJ IV SCH ×2 (10:58→20:36)
[2019-11-21] MEDS: GABAPENTIN 300 MG CAP PO SCH (11:00)
[2019-11-21] MEDS: METOPROLOL TAR 50 MG TAB PO SCH ×2 (11:01→20:39)
[2019-11-21] MEDS: FUROSEMIDE 40 MG/4 ML VIAL IV SCH ×2 (11:01→20:39)
[2019-11-21] MEDS: FLUOCINONIDE 0.05% CREAM 30GM TOP SCH (11:02)
[2019-11-21] MEDS: LIDOCAINE 5% OINT 30 GM TUBE TOP SCH (11:02)
--- NOTE | 2019-11-21 14:26 | P.CNS ---
Date of Consult: 11/21/19 Subjective: Patient is a 79-year-old female with past medical history of chronic diastolic heart failure, COPD on home oxygen and morbid obesity who presents with shortness of breath and swelling to bilateral lower extremities. Patient reports swelling and redness to bilateral lower extremities on an off for the past year. I was consulted for bilateral lower extremity cellulitis. - Past Medical/Surgical History Diabetic: No -: COPD -: HTN -: Chronic diastolic CHF -: Hypothyroidism -: Hyperlipidemia -: Chronic lymphedema -: Morbid obesity -: Carpal Tunnel Repair -: Vaginal hysterectomy Psychosocial/ Personal History: Patient is a . She lives with her brother and niece. - Family History Family History: Reviewed- Non-Contributory - Social History Smoking Status: Never smoker Alcohol use: No CD- Drugs: No Caffeine use: Yes Place of Residence: Home Allergies celecoxib [From Celebrex] Allergy (Severe, Verified 12/02/18 01:07) Anaphylaxis Hydrocodone Bitart/Acetaminophen ([place] 5/325) 1 tab PO Q4H PRN PRN Reason: Pain scale 5-7 (Moderate) Stop: 12/16/19 02:10 Last Admin: 11/21/19 05:02 Dose: 1 tab Documented by: Acetazolamide (Diamox) 250 mg PO DAILY GISELLE Stop: 12/21/19 09:01 Last Admin: 11/21/19 10:57 Dose: 250 mg Documented by: Amitriptyline HCl (Elavil) 25 mg PO BEDTIME GISELLE Stop: 12/16/19 21:01 Last Admin: 11/20/19 19:47 Dose: 25 mg Documented by: Arformoterol Tartrate (Brovana) 15 mcg NEB BIDRESP GISELLE Stop: 12/17/19 11:34 Last Admin: 11/21/19 08:07 Dose: 15 mcg Documented by: Atorvastatin Calcium (Lipitor) 20 mg PO BEDTIME GISELLE Stop: 12/18/19 21:01 Last Admin: 11/20/19 19:47 Dose: 20 mg Documented by: Fluocinonide (Lidex 0.05% Cream) 1 appl TOP DAILY GISELLE Stop: 12/19/19 11:01 Last Admin: 11/21/19 11:02 Dose: 1 appl Documented by: Furosemide (Lasix) 40 mg IV BID GISELLE Stop: 12/19/19 21:01 Last Admin: 11/21/19 11:01 Dose: 40 mg Documented by: Gabapentin (Neurontin) 300 mg PO DAILY [facility] Stop: 12/22/19 09:01 Heparin Sodium (Porcine) (Heparin 5,000 Units/Ml) 5,000 unit SQ Q8HR GISELLE Stop: 12/16/19 01:01 Last Admin: 11/21/19 10:57 Dose: 5,000 unit Documented by: Home Med (Fluticasone/Vilanterol [Breo Ellipta 200-25 Mcg Inh]) 1 puff IH PRN GISELLE Stop: 12/16/19 02:16 Levofloxacin/Dextrose (Levaquin 750 Mg/150 Ml Ivpb (Premix)) 750 mg in 150 mls @ 100 mls/hr IV Q48H [facility]; Protocol Stop: 12/16/19 14:01 Last Admin: 11/20/19 14:57 Dose: 150 mls Documented by: Vancomycin HCl 2 gm/ Sodium (Chloride) 500 mls @ 250 mls/hr IVPB Q48H [facility]; Protocol Stop: 12/20/19 09:01 Last Admin: 11/20/19 09:12 Dose: 500 mls Documented by: Ipratropium Brady (Atrovent Neb) 0.5 mg IH S1PRNIH PRN PRN Reason: SHORTNESS OF BREATH Stop: 12/17/19 11:34 Last Admin: 11/20/19 19:55 Dose: 0.5 mg Documented by: Levothyroxine Sodium (Synthroid) 0.05 mg PO DAILY GISELLE Stop: 12/16/19 09:01 Last Admin: 11/21/19 10:57 Dose: 0.05 mg Documented by: Lidocaine HCl (Lidocaine 5% Ointment) 0 appl TOP DAILY GISELLE Stop: 12/17/19 09:01 Last Admin: 11/21/19 11:02 Dose: 30 appl Documented by: Methylprednisolone Sodium Succinate (Solu-Medrol) 40 mg IV Q12HR GISELLE Stop: 12/18/19 21:01 Last Admin: 11/21/19 10:58 Dose: 40 mg Documented by: Metoprolol Tartrate (Lopressor) 50 mg PO BID [facility] Stop: 12/17/19 19:01 Last Admin: 11/21/19 11:01 Dose: 50 mg Documented by: Sodium Chloride (Normal Saline Flush) 10 ml IV BID [facility] Stop: 12/16/19 09:01 Last Admin: 11/21/19 10:58 Dose: 10 ml Documented by: Spironolactone (Aldactone) 25 mg PO DAILY [facility] Stop: 12/21/19 09:01 Last Admin: 11/21/19 10:57 Dose: 25 mg Documented by: ROS: CV: Denies chest pain RESP: Reports shortness of breath worsening with activity : Denies dysuria GI: Denies nausea and diarrhea Extremities: Reports bilateral lower extremity swelling and erythema Objective: Temp Pulse Resp BP Pulse Ox 97 F 60 20 129/61 100 11/21/19 12:00 11/21/19 12:00 11/21/19 12:00 11/21/19 12:00 11/21/19 12:00 Labs: Sodium 137, potassium 3.5, BUN 47, creatinine 1.93, albumin 2.6, WBC 6.0, hemoglobin 11.3, hematocrit 35.1 EXAM DESCRIPTION: RAD - Chest Single View - 11/15/2019 9:00 pm CLINICAL HISTORY: FEVER Chest pain. COMPARISON: Chest Single View dated 05/25/2019; Chest Single View dated 05/24/2019; Chest Single View dated 05/23/2019; Chest Single View dated 12/01/2018 FINDINGS: Portable technique limits examination quality. Mild interstitial pulmonary edema. The heart is moderately enlarged. No displaced fractures. IMPRESSION: Mild CHF. ROS: General: Awake, alert, oriented CV: S1,S2 RESP: Good breath sounds ABD: Nontender, bowel sounds present Extremities: Bilateral lower extremity edema and erythema, no warmth Skin: Bilateral lower extremity lymphedema with dry flaky skin Assessment and plan: Bilateral lower extremity cellulitis verses lymphedema, procalcitonin negative, no leukocytosis, afebrile Levaquin day 6 and Vancomycin day 2, can monitor off antibiotics Patient need to follow up with lymphedema clinic outpatient Recommend Aquaphor to bilateral lower extremities daily COPD, has home oxygen Protein calorie malnourished Will continue to monitor Thank you for consult Patient discussed with Dr. Woods
--- NOTE | 2019-11-21 14:57 | RAD REPORT ---
EXAM DESCRIPTION: US - Renal Ultrasound-Complete - 11/21/2019 2:17 pm CLINICAL HISTORY: RYLEY COMPARISON: Stone Protocol dated 11/21/2019None. FINDINGS: The right kidney measures 9.0 x 4.6 x 4.3 cm. The left kidney measures 9.7 x 5.0 x 5.1 cm . Renal cortical thickness and echogenicity are normal. No hydronephrosis or suspicious renal mass. E ach renal pelvis is similar to the earlier CT study. Urinary bladder is fully contracted. IMPRESSION: No hydronephrosis or suspicious renal mass. Normal cortical thickness and no measurable medical renal disease identifiable.
--- NOTE | 2019-11-21 15:42 | RAD REPORT ---
EXAM DESCRIPTION: CT - Stone Protocol - 11/21/2019 1:27 am CLINICAL HISTORY: Arf COMPARISON: None. TECHNIQUE: CT ABDOMEN PELVIS WITHOUT IV CONTRAST on 11/21/2019 12:00 AM CDT This exam was performed according to our departmental dose-optimization program, which includes autom ated exposure control, adjustment of the mA and/or kV according to patient size and/or use of iterati ve reconstruction technique. FINDINGS: There is bibasilar atelectasis. Abdomen: The liver is normal in appearance. There is no biliary dilatation. There is a moderate hiata l hernia. Gallbladder contains layering sludge. The pancreas and spleen are normal in appearance. Kid neys are mildly atrophic. Adrenal glands are normal. Abdominal aorta is normal in course and caliber without aneurysm. There is no free air. There is no r etroperitoneal adenopathy. Pelvis: There is mild distal colonic diverticulosis. Urinary bladder contains a Gilmore catheter as wel l as moderate amount of air. There is no free fluid. Hysterectomy was performed. Appendix is not randy rly seen. Skeleton: There are no acute osseous findings. No suspicious bony lesions. IMPRESSION: No definite acute process. Electronically signed by: Chase Quinteros MD 11/21/2019 1:57 AM CDT Due to temporary technical issues with the PACS/Fluency reporting system, reports are being signed by the in house radiologist without review as a courtesy to ensure prompt reporting. The interpreting r adiologist is fully responsible for the content of the report.
--- NOTE | 2019-11-21 16:46 | P.PN ---
Subjective Date of Service: 11/21/19 Primary Care Provider: Dr. Faria Chief Complaint: Respiratory failure Subjective: Improving (Refusing BiPAP overnight, reports feeling better, and asking if and when can she be discharged home) Physical Examination - Vital Signs Temperature: 97 F Blood Pressure: 129/61 Pulse: 60 Respirations: 20 Pulse Ox (%): 100 - Physical Exam General: Alert, In no apparent distress HEENT: Sclerae nonicteric Neck: Supple Respiratory: Diminished (bilaterally), Other (On 2 L nasal cannula) Cardiovascular: Regular rate/rhythm, Normal S1 S2, Edema (Bilateral lymphedema) Gastrointestinal: Soft and benign, Non-distended, No tenderness Integumentary: Other (Bilateral lymphedema, venous stasis dermatitis, skin scaling) Neurological: Normal speech, Normal affect - Studies Microbiology Data (last 24 hrs): 11/15/19 21:33 Blood - Blood Aerobic Blood Culture - Final No growth in 5 days. 11/15/19 21:33 Blood - Blood Anaerobic Blood Culture - Final 11/15/19 21:40 Blood - Blood Aerobic Blood Culture - Final No growth in 5 days. 11/15/19 21:40 Blood - Blood Anaerobic Blood Culture - Final No growth in 5 days. Assessment & Plan Physician Review: Patient Assessed, Agree with Above Assessment and Plan Physician Review Additional Text: Congestive heart failure with acute exacerbation: Acute respiratory failure with hypoxia and hypercapnia Suspect obstructive sleep apnea, obesity hypoventilation syndrome COPD exacerbation Sepsis complicated by volume overload Bilateral lower extremity cellulitis with history of chronic lymphedema Acute on chronic kidney disease: New onset Atrial fibrillation Essential hypertension: Plan: Congestive heart failure with acute exacerbation Acute respiratory failure with hypoxia and hypercapnia Obesity hypoventilation syndrome -h/o chronic diastolic heart failure with poor compliance on fluid intake. Patient given IV Lasix in the ED. TTE (05/2019: chronic diastolic heart failure, EF: ~53% and mild tricuspid and mitral valve regurgitation -Patient we CO2 retention. BiPAP therapy as tolerated. Recommend BiPAP every night. Patient refusing BiPAP and stating it is very uncomfortable. -Limit oxygen supplementation to keep SaO2 between 88-90% -Dr. Mcneil recommend trilogy at home. COPD exacerbation -patient reportedly with wheezing on exam early in hospitalization, likely having a component of COPD exacerbation -continue Solu-Medrol 40mg IV b.i.d. Sepsis complicated by volume overload: Bilateral lower extremity cellulitis with history of chronic lymphedema: -Patient presented with leukocytosis (15.7), however pro calcitonin was negative, afebrile, lactate: 1.2, and known history of chronic lymphedema. -unclear if patient with trees cellulitis versus lymphedema -currently being treated with Levaquin and vancomycin -Cultures: no growth -continue wound care -will consult ID for any further recommendations, may be able to discontinue antibiotics Acute on chronic kidney disease: -Creatinine of 1.66 on admission. trending up -nephrology consulted - appreciate assistance -lasix reduced to 40mg daily yesterday New onset atrial fibrillation. -cardiology was consulted, continue metoprolol tartrate 50 mg b.i.d. -patient spontaneously converted to sinus rhythm, Essential hypertension: Monitor blood pressure. hydralazien PRN History of COPD: Requiring 4 L nasal cannula to maintain O2 saturations of 97%. Suspect obstructive sleep apnea: It was recommended that patient have sleep study on the last admission. Unknown if patient completed study or not. Dispo: Anticipate discharge in the next 24-48 hrs, SW consulted for home trilogy vent set up Time Spent Managing Pts Care (In Minutes): 35
[2019-11-21] MEDS ORDERED: MORPHINE 2 MG/ML SYR IV ONE (19:00)
[2019-11-21] MEDS: ATORVASTATIN 20 MG TAB PO SCH (20:36)
[2019-11-21] MEDS: AMITRIPTYLINE 25 MG TAB PO SCH (20:36)
[2019-11-21 21:18] LABS: Urine Protein/Creatinine Ratio 0.34 ratio (<0.15)
--- NOTE | 2019-11-21 22:36 | PN ---
Date of Progress Note: 11/21/2019 Subjective: The patient was admitted with leg swelling. The patient was diuresed. The patient had cellulitis of both lower extremities with severe venous stasis. The patient is feeling much better. The patient had history of COPD with obstructive sleep apnea. Physical Examination: Vital Signs: When I saw the patient, blood pressure 120/65, pulse of 70, afebrile. The patient had good urine output of 1500, negative of 1100. Chest: Decreased air entry bilateral base. Heart: S1, S2. Regular. Abdomen: Soft, morbidly obese. Extremities: Venous stasis edema has been subsided significantly. Neurologic: Alert and oriented x3. Nonfocal. Laboratory Data: Sodium 137, potassium 3.5, bicarb 40, BUN 47, creatinine 1.9, calcium 8.3, phosphorus 3.6, magnesium 1.9, GFR of 25. Urinalysis; specific gravity of 1.010. PC ratio is still pending. WBC 6, H and H 11.3/35.1, platelets 422. Current Medications: The patient on its include; 1. Levaquin. 2. Vancomycin 2 g every 48 hours. 3. Brovana. 4. Atorvastatin. 5. Metoprolol 50 b.i.d. 6. Spironolactone 25 daily. 7. Amitriptyline. 8. Gabapentin 600 b.i.d. 9. Lasix 40 b.i.d. 10. Acetazolamide. 11. Levothyroxine. 12. Breathing treatment. 13. Atrovent. 14. KCl. Assessment And Plan: 1. Acute kidney injury, multifactorial, normal size kidney, secondary to vancomycin toxicity, prerenal secondary to over diuresis, nonoliguric, peripheral edema without any respiratory symptoms right now. I am going to go ahead and decrease Lasix to once a day. We will continue on spironolactone and we will follow up. 2. Edema, secondary to cor pulmonale, mostly pulmonary hypertension and venous stasis, improving significantly. I am going to decrease Lasix and we will monitor. We will follow up protein and creatinine. I agree with spironolactone. 3. Cellulitis. Continue current antibiotic. 4. Hypokalemia. We will supplement. Continue spironolactone. 5. Hypercapnic respiratory acidosis with compensation metabolic alkalosis, stable, was started on acetazolamide. We will continue for 4 doses, then we can discontinue. 6. Hypothyroidism. Continue supplement. 7. Chronic obstructive pulmonary disease exacerbation as by primary and Pulmonary. time spent to coordinate the care , discussing with other team meember the care , face to face with the patient and discussed the plan with patient , placing order 35 min CAT Voice ID: [id number] Report ID: [id number] ALEXANDR
[2019-11-22] MEDS: HEPARIN 5000 UNIT/ML 1 ML VIAL SQ SCH ×3 (01:00→17:15)
[2019-11-22 04:15] LABS: Absolute Lymphocytes (CBC) 0.7 K/uL (0.7-4.9); Basophils % 0.2 % (0-1.3); Hematocrit 35.6 % (36.0-45.0); Lymphocytes % 9.4 % (15.3-44.8); MPV 8.9 fL (7.6-11.3); RBC Red Blood Cell Count 4.14 M/uL (3.86-4.86)
[2019-11-22 04:55] LABS: Blood Morphology Comment NOT SEEN (NOT SEEN); Platelet Estimate ADEQ
[2019-11-22 05:01] LABS: Albumin 2.5 g/dL (3.4-5.0); Magnesium 2.2 mg/dL (1.8-2.4); Phosphorus 4.1 mg/dL (2.5-4.9); Potassium 3.5 mmol/L (3.5-5.1); Uric Acid 11.1 mg/dL (2.6-6.0)
[2019-11-22 06:49] LABS: Rheumatoid Factor NEG (NEG)
[2019-11-22] MEDS: IPRATROPIUM BROM 0.5MG/2.5ML IH PRN ×2 (07:53→20:30)
[2019-11-22] MEDS: ARFORMOTEROL TARTRATE 15 MCG/2 ML VIAL.NEB NEB SCH ×2 (07:53→20:30)
[2019-11-22] MEDS ORDERED: POTASSIUM CL SA 10 MEQ TAB PO ONE (08:00)
[2019-11-22] MEDS: METOPROLOL TAR 50 MG TAB PO SCH ×2 (09:15→20:16)
[2019-11-22] MEDS: METHYLPREDNISOLONE 40 MG INJ IV SCH ×2 (09:15→20:16)
[2019-11-22] MEDS: FUROSEMIDE 40 MG/4 ML VIAL IV SCH (09:15)
[2019-11-22] MEDS: LEVOTHYROXINE SOD 0.05 MG TABLET PO SCH (09:16)
[2019-11-22] MEDS: GABAPENTIN 300 MG CAP PO SCH (09:16)
[2019-11-22] MEDS: acetaZOLAMIDE 250 MG TAB PO SCH (09:16)
[2019-11-22] MEDS: FLUOCINONIDE 0.05% CREAM 30GM TOP SCH (09:17)
[2019-11-22] MEDS: SPIRONOLACTONE 25 MG TABLET PO SCH (09:22)
[2019-11-22] MEDS: VANCOMYCIN 2 GM in NA CHLORIDE 0.9% 500 ML IVPB SCH (09:24)
[2019-11-22] MEDS: LIDOCAINE 5% OINT 30 GM TUBE TOP SCH (11:58)
--- NOTE | 2019-11-22 12:37 | PN ---
Date of Progress Note: 11/22/2019 Subjective: The patient was admitted with anasarca, venous stasis, cellulitis. The patient had acute kidney injury secondary to over-diuresed. Yesterday, we started decreasing the Lasix. Kidney function started trending down. Physical Examination: Vital Signs: Blood pressure 141/63, pulse of 61, afebrile. Had urine output of 2200, negative for 600. Chest: Decreased entry bilateral. Heart: S1, S2. Systolic murmur. Abdomen: Morbidly obese. Extremities: Venous stasis bilateral. +1 edema. Laboratory Data: WBC 7.9, H and H 11.2/35.6, platelets 343. Sodium 138, potassium 3.5, bicarb 40, BUN 55, creatinine 1.8. Uric acid 11.1, iron saturation of 19, PTH of 378. Current Medications: The patient on include atorvastatin, metoprolol 50 b.i.d., spironolactone, gabapentin, Lasix 40 daily, acetazolamide, levothyroxine, Solu- Medrol. Assessment And Plan: 1. Acute kidney injury, multifactorial, secondary to vanc/prerenal, over- diuresed, on the recovery. I am going to continue current Lasix dose. 2. Hypertension, controlled, optimal. Continue current treatment. 3. Iron-deficiency anemia. Hemoglobin on the goal. No need for supplement right now. 4. Secondary hyperparathyroidism. Calcium on the goal. Phosphorus on the goal. The patient will need as outpatient workup as repeating her PTH as this elevation in PTH was on the acute phase to evaluate if it is secondary or primary hyperparathyroidism. 5. I am not going to start any vitamin D analog for the time being to avoid confusing the picture. 6. Anasarca, secondary to renal failure/venous stasis. Currently, responds very well to current diuresis dose. We will continue. 7. Proteinuria, nonnephrotic. We will follow up lab. Okay to switch the 24-hour to random serum protein electrophoresis. 8. Cellulitis, as by Infectious Disease. time spent to coordinate the care , discussing with other team meember the care , face to face with the patient and discussed the plan with patient , placing order 35 min ANGELICA/BRITNI Voice ID: [id number] Report ID: [id number] MTDKatie
--- NOTE | 2019-11-22 14:04 | P.PN ---
Date of Service: 11/22/19 Subjective: Patient is a 79-year-old female with past medical history of chronic diastolic heart failure, COPD on home oxygen and morbid obesity who presents with shortness of breath and swelling to bilateral lower extremities. Patient reports swelling and redness to bilateral lower extremities on an off for the past year. I was consulted for bilateral lower extremity cellulitis. Patient examined at bedside. No new changes Objective: Temp Pulse Resp BP Pulse Ox 97.8 F 51 18 123/62 98 11/22/19 12:00 11/22/19 12:00 11/22/19 12:00 11/22/19 12:00 11/22/19 12:00 Labs: Sodium 138, potassium 3.5, BUN 55, creatinine 1.89, albumin 2.6, WBC 7.9, hemoglobin 11.2, hematocrit 35.6 EXAM DESCRIPTION: RAD - Chest Single View - 11/15/2019 9:00 pm CLINICAL HISTORY: FEVER Chest pain. COMPARISON: Chest Single View dated 05/25/2019; Chest Single View dated 05/24/2019; Chest Single View dated 05/23/2019; Chest Single View dated 12/01/2018 FINDINGS: Portable technique limits examination quality. Mild interstitial pulmonary edema. The heart is moderately enlarged. No displaced fractures. IMPRESSION: Mild CHF. ROS: General: Awake, alert, oriented CV: S1,S2 RESP: Good breath sounds ABD: Nontender, bowel sounds present Extremities: Bilateral lower extremity edema and erythema, no warmth Skin: Bilateral lower extremity lymphedema with dry flaky skin Assessment and plan: Bilateral lower extremity cellulitis verses lymphedema, procalcitonin negative, no leukocytosis, afebrile Can continue to monitor off antibiotics Patient would benefit from follow up with lymphedema clinic outpatient Recommend Aquaphor to bilateral lower extremities daily COPD, has home oxygen Protein calorie malnourished Will continue to monitor Patient discussed with Dr. Woods
--- NOTE | 2019-11-22 15:19 | P.PN ---
Subjective Date of Service: 11/22/19 Primary Care Provider: Dr. Faria Chief Complaint: Respiratory failure Subjective: Improving (overnight required up to 4L NC, otherwise feeling well) Physical Examination - Vital Signs Temperature: 97.8 F Blood Pressure: 123/62 Pulse: 51 Respirations: 18 Pulse Ox (%): 98 - Physical Exam General: Alert, In no apparent distress HEENT: Mucous membr. moist/pink Respiratory: Diminished (bilaterally) Cardiovascular: Regular rate/rhythm, Normal S1 S2 Gastrointestinal: Soft and benign, Non-distended, No tenderness Integumentary: Other (bilateraly lymphedema, dry scaling skin) Neurological: Normal speech, Normal affect Assessment & Plan Physician Review Additional Text: Congestive heart failure with acute exacerbation: Acute respiratory failure with hypoxia and hypercapnia Suspect obstructive sleep apnea, obesity hypoventilation syndrome COPD exacerbation Sepsis complicated by volume overload Bilateral lower extremity cellulitis with history of chronic lymphedema Acute on chronic kidney disease: New onset Atrial fibrillation Essential hypertension: Plan: Congestive heart failure with acute exacerbation Acute respiratory failure with hypoxia and hypercapnia Obesity hypoventilation syndrome -h/o chronic diastolic heart failure with poor compliance on fluid intake. Patient given IV Lasix in the ED. TTE 05/2019: chronic diastolic heart failure, EF: ~53% and mild tricuspid and mitral valve regurgitation -Patient with CO2 retention. BiPAP therapy as tolerated. Recommend BiPAP every night. Patient refusing BiPAP and stating it is very uncomfortable. -Limit oxygen supplementation to keep SaO2 between 88-90% -Dr. Mcneil recommend trilogy vent at home, but patient states she will likely not use it -up to 4L NC this morning COPD exacerbation -patient reportedly with wheezing on exam early in hospitalization, likely having a component of COPD exacerbation -continue Solu-Medrol 40mg IV b.i.d. Sepsis complicated by volume overload: Bilateral lower extremity cellulitis with history of chronic lymphedema: -Patient presented with leukocytosis (15.7), however pro calcitonin was negative, afebrile, lactate: 1.2, and known history of chronic lymphedema. -unclear if patient with trees cellulitis versus lymphedema -was being treated with Levaquin and vancomycin -Cultures: no growth -continue wound care -ID consulted - dc'd antibiotics 11/20 Acute on chronic kidney disease: -Creatinine of 1.66 on admission. trended up, but down today -nephrology consulted - appreciate assistance -lasix reduced to 40mg daily on 11/19 -diuresing well New onset atrial fibrillation. -cardiology was consulted, continue metoprolol tartrate 50 mg b.i.d. -patient spontaneously converted to sinus rhythm, Essential hypertension: Monitor blood pressure. hydralazien PRN History of COPD: Requiring 4 L nasal cannula to maintain O2 saturations of 97%. Suspect obstructive sleep apnea: It was recommended that patient have sleep study on the last admission. Unknown if patient completed study or not. Dispo: Anticipate discharge in the next 24-48 hrs, SW consulted for home trilogy vent set up, however patient states she will likely not use it - feels anxious / claustrophobic with masks on has been off abx < 24hrs, remains afebrile, monitor overnight. anticipate dc home tomorrow if continues to do well and oxygen requirement decreases Time Spent Managing Pts Care (In Minutes): 35
[2019-11-22] MEDS: AMITRIPTYLINE 25 MG TAB PO SCH (20:16)
[2019-11-22] MEDS: ATORVASTATIN 20 MG TAB PO SCH (20:16)
[2019-11-23] MEDS: HEPARIN 5000 UNIT/ML 1 ML VIAL SQ SCH ×2 (01:41→08:09)
[2019-11-23 04:29] LABS: Albumin 2.7 g/dL (3.4-5.0); Magnesium 2.4 mg/dL (1.8-2.4); Phosphorus 3.9 mg/dL (2.5-4.9); Potassium 3.5 mmol/L (3.5-5.1)
[2019-11-23] MEDS: IPRATROPIUM BROM 0.5MG/2.5ML IH PRN (07:30)
[2019-11-23] MEDS: ARFORMOTEROL TARTRATE 15 MCG/2 ML VIAL.NEB NEB SCH (07:30)
[2019-11-23 07:35] LABS: Urine Total Volume 24 Hours 1700 mL
[2019-11-23 07:41] LABS: UR PROTEIN 19 mg/dL (<11.9)
[2019-11-23] MEDS ORDERED: POTASSIUM CL SA 10 MEQ TAB PO ONE (08:00)
[2019-11-23] MEDS: METHYLPREDNISOLONE 40 MG INJ IV SCH (08:08)
[2019-11-23] MEDS: FUROSEMIDE 40 MG/4 ML VIAL IV SCH (08:09)
[2019-11-23] MEDS: GABAPENTIN 300 MG CAP PO SCH (08:09)
[2019-11-23] MEDS: METOPROLOL TAR 50 MG TAB PO SCH (08:09)
[2019-11-23] MEDS: SPIRONOLACTONE 25 MG TABLET PO SCH (08:09)
[2019-11-23] MEDS: LEVOTHYROXINE SOD 0.05 MG TABLET PO SCH (08:09)
[2019-11-23] MEDS: LIDOCAINE 5% OINT 30 GM TUBE TOP SCH (08:10)
[2019-11-23] MEDS: FLUOCINONIDE 0.05% CREAM 30GM TOP SCH (08:10)
[2019-11-23 09:04] VITALS: O2SAT 93
--- NOTE | 2019-11-23 11:27 | P.DS ---
Admission Date: 11/16/19 Discharge Date: 11/23/19 Primary Care Provider: Dr. Faria Disposition: ROUTINE DISCHARGE Discharge Condition: GOOD Reason for Admission: Respiratory failure Consultations: Cardiology - Dr. Mcdonald Pulmonology - Dr. Mcneil Nephrology - Dr. Phipps, Dr. Solitario ID - Dr. Woods Procedures: CXR (11/14): mild interstitial pulmonary edema. Heart is moderately enlarged. Venous U/S (11/14): no evidence of DVT in either lower extremity CT Abd (11/20): No definite acute process. Renal U/S (11/20): No hydronephrosis or suspicious renal mass. Normal cortical thickness and no measurable medical renal disease identifiable. Problem List Congestive heart failure with acute exacerbation Acute respiratory failure with hypoxia and hypercapnia Suspect obstructive sleep apnea, obesity hypoventilation syndrome COPD exacerbation Sepsis complicated by volume overload Bilateral lower extremity cellulitis with history of chronic lymphedema Acute on chronic kidney disease New onset Atrial fibrillation Essential hypertension Brief History of Present Illness: 79-year-old female with a past medical history of chronic diastolic heart failure, COPD on home oxygen, hypertension, hypothyroidism, hyperlipidemia, morbid obesity with chronic lymphedema presents to the emergency room complaining of worsening shortness of breath, swelling in the lower extremities and redness and tenderness of her lower extremities. Patient states that she has had intermittent flare ups of lower extremity swelling and shortness of breath. Patient was admitted approximately 1 year ago for similar complaints. States that for the last couple of months she has had worsening shortness of breath, increasing swelling in her lower extremities and now pain secondary to erythema. In the emergency room patient was noted to be 89% on room air. Was placed on 4 L nasal cannula which improved her oxygenation to 97%. Patient states that she was running a fever of 101 at home. In the ER her temperature is 99.1. Her lower extremities are swollen but patient also has a history of chronic lymphedema. Her distal lower extremities are erythematous, unkempt with some slight serosanguineous drainage. Her white cell count was noted to be 15.7. Her creatinine is 1.66, GFR 30. Bilateral lower extremity venous Doppler was negative for DVT. Hospital Course: Patient was admitted for the above issues. She was initially treated for sepsis due to possible b/l lower extremity cellulitis with h/o chronic lymphedema. She was treated with Levaquin and vancomycin. Blood cultures were negative. Review of the EMR revealed patient was afebrile in the ED, lactate: 1.2, procalcitonin was negative, and patient stated the redness was similar to her chronic lymphedema. ID was consulted and agreed on trial of discontinuing antibiotics on 11/20 and monitoring patient. She continued to do well and remained afebrile off antibiotics. acute hypoxic respiratory failure secondary to diastolic CHF exacerbation and COPD exacerbation - patient with poor compliance on fluid intake. She was diuresed with IV Lasix, but difficult to balance with her RYLEY on CKD. Nephrology was consulted to assist in management and felt the RYLEY was multifactorial - secondary to vanc/prerenal, over-diuresed initially. Pulmonology was consulted as well - recommended NIV at home as CPAP would not be enough. BIPAP was attempted during hospitalization however patient continued to refuse - stating she couldn't get comfortable with the mask. She was also noted to have some wheezing on exam and was treated for COPD exacerbation with solumedrol and nebs. During her hospitalization she was found to have new onset atrial fibrillation. Cardiology was consulted. Patient converted back to normal sinus rhythm after a dose of digoxin and being started on metoprolol tartrate 50mg BID. She continued to remain in normal sinus rhythm for the rest of her hospitalization. On day of discharge, patient was breathing comfortably on 2LNC (home oxygen level), her home trilogy ventilator was set up, she was voiding without issue, and her kidney function was back to her baseline. Vital Signs/Physical Exam: Temp Pulse Resp BP Pulse Ox 97.1 F 57 17 125/60 95 11/23/19 08:00 11/23/19 08:00 11/23/19 08:00 11/23/19 08:00 11/23/19 08:00 General: Alert, In no apparent distress HEENT: Mucous membr. moist/pink, Sclerae nonicteric Respiratory: Clear to auscultation bilaterally, Normal air movement Cardiovascular: Regular rate/rhythm, Normal S1 S2 Gastrointestinal: Soft and benign, Non-distended, No tenderness Integumentary: Other (bilateral lower extremity lymphedema, mild redness from ankle to just below knee. dry scaling of skin, some flaking off) Neurological: Normal speech, Normal affect Laboratory Data at Discharge: WBC 7.9 K/uL (4.3-10.9) D 11/22/19 03:22 Hgb 11.2 g/dL (12.0-15.0) L 11/22/19 03:22 Hct 35.6 % (36.0-45.0) L 11/22/19 03:22 Plt Count 343 K/uL (152-406) 11/22/19 03:22 PT 13.4 SECONDS (9.5-12.5) H 11/15/19 21:09 INR 1.14 11/15/19 21:09 APTT 25.1 SECONDS (24.3-36.9) 11/15/19 21:09 Sodium 138 mmol/L (136-145) 11/23/19 03:24 Potassium 3.5 mmol/L (3.5-5.1) 11/23/19 03:24 BUN 57 mg/dL (7-18) H 11/23/19 03:24 Creatinine 1.59 mg/dL (0.55-1.3) H 11/23/19 03:24 Glucose 169 mg/dL (74-106) H 11/23/19 03:24 Uric Acid 11.1 mg/dL (2.6-6.0) H 11/22/19 03:22 Phosphorus 3.9 mg/dL (2.5-4.9) 11/23/19 03:24 Magnesium 2.4 mg/dL (1.8-2.4) 11/23/19 03:24 Total Bilirubin 0.5 mg/dL (0.2-1.0) 11/15/19 21:09 AST 8 U/L (15-37) L 11/15/19 21:09 ALT 8 U/L (12-78) L 11/15/19 21:09 Alkaline Phosphatase 70 U/L (45-117) 11/15/19 21:09 Troponin I 0.02 ng/mL (0.0-0.045) 11/21/19 18:16 Amylase 57 U/L (25-115) 11/15/19 21:09 Lipase 126 U/L (73-393) 11/15/19 21:09 Home Medications: Amitriptyline [Elavil*] 25 mg PO BEDTIME 12/02/18 Gabapentin 600 mg PO DAILY 12/02/18 Levothyroxine Sodium 50 mcg PO DAILY 12/02/18 Simvastatin 40 mg PO BEDTIME 12/02/18 Fluticasone/Vilanterol [Breo Ellipta 200-25 Mcg INH] 1 puff IH PRN 11/16/19 Metoprolol Tartrate [Lopressor*] 0.5 tab PO BID 11/16/19 Albuterol Inhaler [Ventolin Inhaler*] 2 puff IH Q6H PRN 30 Days #1 hfa.aer.ad 11/23/19 Furosemide 1 tab PO DAILY 30 Days #30 tablet 11/23/19 Petrolatum 41% Oint [Aquaphor] 1 otilia TOP DAILY 30 Days #1 jar 11/23/19 Spironolactone [Aldactone*] 25 mg PO DAILY 30 Days #30 tab 11/23/19 predniSONE [Prednisone] 1 tab PO BID 4 Days #8 tablet 11/23/19 New Medications: Spironolactone [Aldactone*] 25 mg PO DAILY 30 Days #30 tab Petrolatum 41% Oint [Aquaphor] 1 otilia TOP DAILY 30 Days #1 jar Furosemide 1 tab PO DAILY 30 Days #30 tablet predniSONE [Prednisone] 1 tab PO BID 4 Days #8 tablet Albuterol Inhaler [Ventolin Inhaler*] 2 puff IH Q6H PRN 30 Days #1 hfa.aer.ad PRN Reason: Shortness Of Breath Patient Discharge Instructions: Follow up with PCP within 1 -2 weeks. Follow up with nephrology in ~ 2 weeks Diet: AHA Activity: Ad eliu Time spent managing pt's care (in minutes): 35
--- NOTE | 2019-11-23 12:05 | PN ---
Date of Progress Note: 11/23/2019 Subjective: The patient was admitted with questionable cellulitis, severe peripheral edema with veno us stasis. The patient was started on aggressive diuresis. Kidney function had declined after adjus ting the Lasix and vancomycin. Kidney function gradually started improving. Physical Examination: Vital Signs: When I saw the patient, blood pressure 125/60, pulse of 57, afebrile. The patient had good urine output on current diuresis dose of 2800, negative of 400. Chest: Decreased air entry bilateral base. Heart: S1, S2. Regular. Abdomen: Soft, nontender. Morbidly obese. Could not appreciate any organomegaly. Extremities: Trace edema. Severe venous stasis change. Neurologic: Alert and oriented x3. Laboratory Data: WBC 7.9, H and H 11.2/35.6, platelet 343. Sodium 138, potassium 3.5, bicarb 37, BU N 57, creatinine 1.5, trending down, GFR 31 trending up, calcium 8.7, phos 3.9, magnesium 2.4. Serum protein electrophoresis is still pending. PTH 378. PC ratio is 0.3. Current Medications: Include: 1.Atorvastatin. 2.Metoprolol 50 b.i.d. 3.Spironolactone 25 daily. 4.Gabapentin 300 daily. 5.Amitriptyline. 6.Lasix 40 daily breathing treatment. 7.Levothyroxine. 8.KCl. Assessment And Plan: 1.Acute kidney injury multifactorial secondary to over-diuresis/vancomycin toxicity on the recovery phase, responding to current diuresis dose. I am going to continue Lasix 40 daily and spironolactone 25 b.i.d. The patient is going to be cleared from the renal standpoint to discharge planning. We w ill follow up in 2-3 weeks. 2.Hypertension, controlled, optimal. Continue current medications. 3.Secondary hyperparathyroidism. Currently elevation with normal calcium and phos for kidney functi on improving. I do not see any need to start any vitamin D analog for the time being. The patient i s going to need to have repeated PTH as outpatient after the recovery of the kidney function and we w ill follow up. 4.Edema secondary to venous stasis. Continue current diuresis dose. 5.Hypokalemia. Continue supplement and spironolactone. 6.Cellulitis, seen by Infectious Diseases. Recommended that it is secondary to venous stasis and ly mphedema. Keep holding antibiotic. ANGELICA/BRITNI Voice ID: [id number] Report ID: [id number]
[2019-11-23 12:16] VITALS: BP 124/89; TEMP 97.9
[2019-11-25 15:20] LABS: Hepatitis C Virus RNA (PCR)log <1.18 log IU/mL
[2019-11-27 02:44] LABS: HBsAG Nonreactive (Nonreactive)
== END 2019-11-23 12:51 | disposition home or self-care (01) | DRG 871 ==
LOC: ER 19:43 → ERHOLD 11-16 00:02 → 4TH 11-16 00:43
PROVIDERS: ADMIT Internal Medicine; ATTEND Hospitalist
DX: A41.9 Sepsis, unspecified organism (principal); I50.33 Acute on chronic diastolic (congestive) heart failure; J96.01 Acute respiratory failure with hypoxia; J96.02 Acute respiratory failure with hypercapnia; L03.116 Cellulitis of left lower limb; I13.0 Hypertensive heart and chronic kidney disease with heart failure and stage 1 through stage 4 chronic kidney disease, or unspecified chronic kidney disease; N17.9 Acute kidney failure, unspecified; J44.1 Chronic obstructive pulmonary disease with (acute) exacerbation; E66.2 Morbid (severe) obesity with alveolar hypoventilation; Z68.41 Body mass index [BMI] 40.0-44.9, adult; L97.919 Non-pressure chronic ulcer of unspecified part of right lower leg with unspecified severity; L97.929 Non-pressure chronic ulcer of unspecified part of left lower leg with unspecified severity; E46 Unspecified protein-calorie malnutrition; N25.81 Secondary hyperparathyroidism of renal origin; L03.115 Cellulitis of right lower limb; N18.3 Chronic kidney disease, stage 3 (moderate); E78.5 Hyperlipidemia, unspecified; Z99.81 Dependence on supplemental oxygen; Z90.710 Acquired absence of both cervix and uterus; Z88.8 Allergy status to other drugs, medicaments and biological substances; Z79.890 Hormone replacement therapy; Z79.899 Other long term (current) drug therapy; Z91.19 Patient's noncompliance with other medical treatment and regimen; I89.0 Lymphedema, not elsewhere classified; I87.2 Venous insufficiency (chronic) (peripheral); I48.91 Unspecified atrial fibrillation; Z53.29 Procedure and treatment not carried out because of patient's decision for other reasons; I83.009 Varicose veins of unspecified lower extremity with ulcer of unspecified site; Z88.1 Allergy status to other antibiotic agents; Z88.5 Allergy status to narcotic agent; T36.8X5A Adverse effect of other systemic antibiotics, initial encounter; E87.6 Hypokalemia; E03.9 Hypothyroidism, unspecified; D50.9 Iron deficiency anemia, unspecified; Z20.828 Contact with and (suspected) exposure to other viral communicable diseases
CPT/HCPCS: 36415; 51702; 71045; 74176; 76377; 76770; 80048; 80069; 80076; 80202; 81003; 81015; 82150; 82550; 82553; 82570; 82607; 82652; 82728; 82746; 82805; 83036; 83520; 83540; 83605; 83690; 83735; 83880; 83970; 84100; 84132; 84145; 84156; 84165; 84443; 84466; 84484; 84550; 85025; 85044; 85610; 85730; 86021; 86038; 86160; 86225; 86317; 86430; 86704; 86706; 87040; 87086; 87088; 87340; 87522; 93005; 93970; 94640; 94660; 94760; 96374; 96375; 97116; 97161; 97530; 99251; 99285; J1160; J1644; J1940; J2920; J3370; J7030; J7040; J7605; U0002